=== PATIENT | female | born 1955 | race Caucasian/White ===

== ENCOUNTER 2016-06-08 08:11 | Day surgery (SDC) | payer OTHER ==
[~2016-06-08 08:11] MED LIST: Buffered Lidocaine 1% SYRIN* 3 ML/SYR SYRINGE INTRADERM ONE; Dexamethasone TAB* 4 MG PO ONE; Famotidine IV* 10 MG/ML 2 ML (20 mg) IV ONE; Morphine INJ* 2 MG/ML 1 ML SYRINGE IV PRN; PROCHLORPERAZINE INJ 5 MG/ML 2 ML VIAL IV PRN; fentaNYL* 50 MCG/ML 2 ML VIAL (100 MCG VIAL) IV PRN; oxyCODONE TAB* 5 MG TAB PO PRN
[2016-06-08] MEDS ORDERED: Dexamethasone TAB* 4 MG ONE (10:11)
[2016-06-08] MEDS ORDERED: ceFAZolin 2 GM PREMIX(*) 2 GM/50 ML BAG IVPB ONE (10:11)
[2016-06-08] MEDS ORDERED: Famotidine IV* 10 MG/ML 2 ML (20 mg) ONE (10:11)
[2016-06-08] MEDS ORDERED: Bupivacaine 0.5% W/EPI SDV* 30 ML VIAL ONE (11:52)
[2016-06-08] MEDS ORDERED: Lidocaine 1% INJ* 10 MG/ML 30 ML SDV ONE (11:52)
[2016-06-08] MEDS ORDERED: fentaNYL* 50 MCG/ML 2 ML VIAL (100 MCG VIAL) ONE (12:35)
[2016-06-08] MEDS ORDERED: Midazolam* 1 MG/ML 5 ML VIAL (5 MG) ONE (12:35)
[2016-06-08] MEDS ORDERED: KETAMINE HCL* 50 MG/ML 10 ML VIAL ONE (12:35)
[2016-06-08] MEDS ORDERED: Propofol* 10 MG/ML 20 ML BTL IV PUSH ONE (12:36)
[2016-06-08] MEDS ORDERED: Lidocaine 2% PF* 10 ML AMP ONE (12:36)
[2016-06-08] MEDS ORDERED: Bacitracin OINTMENT* 1 TUBE ONE (12:42)
--- NOTE | 2016-06-08 12:53 | SURGPN ---
Brief Operative Note - Surgery Procedures: Procedures OPERATIVE REPORT PRE-OP Right forearm granuloma POST-OP: Same--4 cm by 3 cm PROCEDURE: Excision of right forearm granuloma SURGEON: MD Kassie ANESTHESIA:Local with [facility] [place] ASST: Mansoor Guevara MS 3 IVF: min EBL: min SPECIMEN: right forearm mass DRAIN: none WOUND CLASS: one COMPLICATIONS: none TO PACU
[2016-06-08 14:18] VITALS: BP 100/76
--- NOTE | 2016-06-09 16:06 | OP ---
OPERATIVE REPORT: DATE OF OPERATION: 06/08/16 - [facility] DATE OF : 57 SURGEON: Aaron Fernando MD ANESTHESIOLOGIST: Dr. Lincoln. ANESTHESIA: Local with monitored anesthesia care. PRE-OP DIAGNOSIS: Apparent granuloma, right proximal forearm. POST-OP DIAGNOSIS: Apparent granuloma, right proximal forearm. OPERATIVE PROCEDURE: Excision of right forearm granuloma/scar tissue, 4 cm x 3 cm. INDICATIONS: Ms. Paris Aguiar is a 60-year-old woman who has a remote history of intravenous drug abuse, has had longstanding mass in the right proximal forearm overlying what appears to be the basilic vein from repeated intravenous drug injections and developed a firm mass, probably consistent with a granuloma and/ or scar tissue in this area. This does not appear to be infected or abscess causing discomfort. She is now to undergo an elective excision. The procedure was discussed with her and the risks but not limited to bleeding, infection, recurrence, peripheral nerve injury resulting in numbness or motor disability in the distal hand. She has had some mild tingling in the 4th and 5th fingers, although I do not believe this is related to this mass and I pressed upon her this will probably not improve those symptoms. She gives her consent and agrees to proceed. ESTIMATED BLOOD LOSS: Minimal. WOUND CLASSIFICATION: One. COMPLICATIONS: None. SPECIMEN: Mass from right forearm. COMPLICATIONS: None. DRAINS: None. DESCRIPTION OF PROCEDURE: Written informed consent was obtained, the right forearm was marked with indelible ink and preoperative antibiotics were administered. The patient was taken to the operating room, placed in the supine position. Sequential compression devices were placed on the lower extremities. The right arm and forearm were prepped and draped in the usual sterile fashion. Time-out verification was then completed. Next, a vertically oriented elliptical incision with a width of approximately 3.8 cm and a length of 7 cm was then traced on the skin and 1% lidocaine with epinephrine was infiltrated in the area. The skin and subcutaneous tissue were excised down to subcutaneous fat to remove the firm mass, which appeared to be scar tissue and probable granuloma. The specimen was sent to Pathology in formalin. Hemostasis was assured. I undermined some of the skin edges on either medial and lateral aspect of the flap. Subcutaneous tissue was closed in an interrupted 3-0 Polysorb suture. The skin was approximated with interrupted 3- 0 nylon sutures. Bacitracin and Vaseline gauze and Kerlix wrap were then placed. The patient tolerated the procedure well and was taken to recovery room in stable condition. CC: [facility]; Dr. Ryan Mar* [id number]/[facility] #: [id number] [place]
== END 2016-06-08 14:19 | disposition home or self-care (01) ==
LOC: OR 08:11
PROVIDERS: ATTEND Surgery
DX: R22.31 Localized swelling, mass and lump, right upper limb (principal); F17.210 Nicotine dependence, cigarettes, uncomplicated; D68.51 Activated protein C resistance; I26.99 Other pulmonary embolism without acute cor pulmonale; Z79.01 Long term (current) use of anticoagulants; Z87.898 Personal history of other specified conditions
CPT/HCPCS: 36415; 85610; 85730; 88305; A9270-GY; J0690; J2001; J2250; J2704; J3010

== ENCOUNTER 2016-09-21 16:26 | Inpatient (IN) | payer OTHER ==
[2016-09-21] MEDS ORDERED: Morphine INJ* 4 MG/ML 1 ML SYRINGE IV PRN (17:38)
[2016-09-21] MEDS ORDERED: NS 0.9% 1000 ML* 1,000 ML IV SCH (17:45)
[2016-09-21] MEDS ORDERED: Diazepam TAB(*) 5 MG PO PRN (17:47)
[2016-09-21] MEDS ORDERED: Baclofen TAB* 10 MG PO PRN (17:47)
[2016-09-21] MEDS ORDERED: Vancomycin per Pharmacy* NOTE FOLLOW UP PRN (17:50)
[2016-09-21] MEDS ORDERED: Cefepime(*) 1 GM in NS 0.9% 50 ML* 50 ML IVPB SCH (18:00)
[2016-09-21] MEDS: Morphine TAB Extended Release (*) 30 MG TAB.ER PO SCH (18:29)
[2016-09-21] MEDS ORDERED: Vancomycin(*) 1,000 MG in NS 0.9% 250 ML* 250 ML IVPB ONE ×2 (18:30→22:45)
[2016-09-21] MEDS: Morphine TAB Extended Release (*) 15 MG TAB.ER PO SCH (18:30)
[2016-09-21] MEDS ORDERED: Warfarin TAB(*) 5 MG PO SCH (19:00)
[2016-09-21] MEDS: Spironolactone TAB* 25 MG PO SCH (21:09)
[2016-09-21] MEDS: traZODone TAB* 100 MG PO SCH (21:09)
[2016-09-21] MEDS: Hydroxychloroquine TAB* 200 MG PO SCH (21:09)
[2016-09-21] MEDS: ARIPiprazole TAB* 5 MG PO SCH (21:10)
[2016-09-21 22:51] LABS: Hematocrit 40 % (35-47); Hemoglobin 13.6 g/dl (12.0-16.0); Mean Corpuscular HGB Conc 34 g/dl (31-36); Mean Corpuscular Hemoglobin 33 pg (27-31); Mean Corpuscular Volume 96 fL (80-97); Mean Platelet Volume 8 um3 (7.4-10.4); Red Blood Count 4.13 10^6/ul (4.0-5.4); Red Cell Distribution Width 14 % (10.5-15); White Blood Count 5.7 10^3/ul (3.5-10.8)
[2016-09-21] MEDS: Cefepime(*) 1 GM in NS 0.9% 50 ML* 50 ML IVPB SCH (23:01)
[2016-09-21 23:06] LABS: Albumin 3.4 g/dL (3.2-5.2); BUN/Creatinine Ratio 14.1 (8-20); C Reactive Protein 10.34 mg/L (< 5.00); Calcium 8.4 mg/dL (8.6-10.3); EGFR African American 80.1 (>60); EGFR Non-African American 62.3 (>60); Globulin 2.4 g/dL (2-4); Potassium 3.7 mmol/L (3.5-5.0); Total Bilirubin 0.5 mg/dL (0.2-1.0); Total Protein 5.8 g/dL (6.4-8.9)
[2016-09-21] MEDS: PTO: Aclidinium POWDER MDI(NF) INH SCH (23:08)
[2016-09-21 23:31] LABS: Erythrocyte Sed Rate 13 mm/Hr (0-30)
[2016-09-22] MEDS: Morphine TAB Extended Release (*) 30 MG TAB.ER PO SCH ×4 (02:25→17:53)
[2016-09-22] MEDS: Morphine TAB Extended Release (*) 15 MG TAB.ER PO SCH ×5 (02:26→17:54)
[2016-09-22] MEDS: Acetaminophen TAB* 325 MG PO PRN ×3 (03:53→17:53)
--- NOTE | 2016-09-22 04:28 | HP ---
CC: Dr. Mar * HISTORY AND PHYSICAL: DATE OF ADMISSION: 09/21/16 PRIMARY CARE PROVIDER: Dr. Mar. CHIEF COMPLAINT: Left lower extremity cellulitis. HISTORY OF PRESENT ILLNESS: Ms. Aguiar is a 61-year-old female who on 09/03/16 scraped her left anterior moe on a concrete stair. The patient was started on Keppra, completed a 7-day course of therapy. Five days prior to admission, she was seen in followup by Dr. Mar at which time her cellulitis had worsened, therefore she was changed to clindamycin. The patient represented to Dr. Mar 's office today for followup and it was noted that the erythema has progressed inferiorly and medially. The patient does have an approximately 1.5 inch round ulceration on the anterior lower left moe that has both yellow slough and a central black eschar. This has been draining some clear yellow liquid per the patient. The patient denies any fevers though does state that she has felt chilled. She also notes that she had a sore on the right anterior leg and there has been some erythema of the distal right anterior leg as well. The patient states the left leg is more painful than usual. PAST MEDICAL HISTORY: 1. Chronic back pain, status post dorsal column stimulator. 2. Depression/anxiety. 3. COPD. 4. History of PE related to factor V Leiden deficiency. 5. History of IV drug abuse. 6. SLE. 7. Hypertension. PAST SURGICAL HISTORY: 1. Appendectomy. 2. . 3. Hysterectomy - partial. 4. L4-L5 diskectomy. 5. Dorsal column stimulator. 6. Dental extractions. 7. Tonsillectomy. 8. Lumbar hemilaminectomy. ALLERGIES: CODEINE. MEDICATIONS: 1. Clindamycin 150 mg p.o. t.i.d. x10 days, started on 09/16/16. 2. MiraLAX 17 g p.o. daily. 3. Docusate sodium 1 cap p.o. twice daily p.r.n. constipation. 4. Glycerin suppository 1 suppository NH daily p.r.n. constipation. 5. Pravastatin 10 mg p.o. q.h.s. 6. Tudorza 1 puff inhaled twice daily. 7. Abilify 5 mg p.o. q.h.s. 8. Oxygen 2 L at night and with activity. 9. Baclofen 10 mg p.o. b.i.d. p.r.n. spasm. 10. Spironolactone 25 mg p.o. twice daily. 11. Diazepam 5 mg p.o. t.i.d. p.r.n. anxiety. 12. Cymbalta 60 mg p.o. daily. 13. Trazodone 100 mg p.o. q.h.s. 14. Orphenadrine 100 mg p.o. t.i.d. p.r.n. spasm. 15. Morphine ER 75 mg p.o. t.i.d. 16. Morphine sulfate IR 15 mg p.o. q.4 hours p.r.n. pain. 17. Torsemide 20 mg p.o. daily. 18. Prednisone 5 mg p.o. daily. 19. Hydroxychloroquine 200 mg p.o. b.i.d. 20. Coumadin 5 mg p.o. daily. FAMILY HISTORY: Mom at the age of 61, she had breast cancer. Dad at the age of 54, he had lymphoma. The patient had one sister who from lung cancer. SOCIAL HISTORY: The patient smokes 1 pack of cigarettes per day and has done so for just under 50 years. She drinks alcohol on occasion. She has past history of abusing OxyContin. She is disabled. She is . She does not, however, live with her . She has 2 children. She indicates her primary healthcare proxy would be her friend, Consuelo Sequeira, and her secondary proxy would be her , David. REVIEW OF SYSTEMS: The patient denies any fever, does admit to chills as above. No anorexia. No chest pain. She does state that she has noted increased swelling of the left lower extremity with the infection. She has occasional palpitation. She has chronic cough. Occasional sputum production. No shortness of breath. No nausea, vomiting, abdominal pain. She does admit to constipation. No hematochezia. No hematuria. No dysuria. No focal weakness or sensory loss. No sudden changes in vision. She does complain of food occasionally getting stuck while swallowing. No joint pains or muscle pains out of the ordinary. She admits to redness to the bilateral lower extremities. She admits to depression. PHYSICAL EXAMINATION GENERAL: The patient is a well-developed, middle-aged female, sitting up in the , bed in no acute distress. HEENT: Pupils are equal. They are round. Extraocular muscles are intact. Oropharynx is clear. Oral mucosa is moist. The patient wears upper and lower dentures. There is no submandibular, cervical, or supraclavicular adenopathy. Thyroid is not enlarged. No thyroid nodules are noted. PULMONARY: Lungs are clear to auscultation bilaterally. CARDIAC: Normal S1 and S2. Regular rate and rhythm. I do not appreciate any murmurs. There is significant nonpitting edema to the left lower extremity and minimal edema of the right lower extremity. ABDOMEN: Bowel sounds are present. Abdomen is soft, nontender, nondistended. MUSCULOSKELETAL: There is no clubbing of the digits. The patient's toes look slightly dusky in appearance. There is full active range of motion of all 4 extremities. SKIN: Warm and dry. There are no rashes. There is erythema from the mid left moe encompassing the anterior and medial and lateral aspects of the lower leg, the foot and ankle. There is slightly less erythema more proximally to just under the knee. The distal end of the left lower leg, there is approximately 1.5 inch ulceration with yellow slough around the edge without central black eschar. There is yellow serous fluid weeping from the wound. On the right, the patient has a smaller oblique shaped ulceration that is scabbed over. There is some mild erythema to the medial aspect of this wound. NEURO: Cranial nerves II through XII are grossly intact. Sensation is intact to light touch throughout. Strength is 5/5 and symmetric in both upper and lower extremities bilaterally. PSYCH: The patient is alert. She is oriented x3. Affect appears appropriate. LABORATORY DATA: Labs are pending. ASSESSMENT AND PLAN: Ms. Aguiar is a 61-year-old female, who presented to Dr. Mar's office for followup of a left lower extremity cellulitis, which was found to be worsening despite being on clindamycin and is referred for direct admission to [facility] for treatment of her cellulitis. 1. Left lower extremity cellulitis greater than right lower extremity cellulitis. At this point, the patient has been on a full course of Keflex followed by 5 days of clindamycin without significant improvement in her cellulitis of the left lower extremity. At this point, I do feel it is warranted that the patient be admitted and placed on IV antibiotics. We will go ahead and treat her with vancomycin and cefepime for now. I do not believe culturing the anterior wound on the left leg would be of benefit due to this being a superficial wound. I will ask for an ID consult tomorrow. Given how swollen the left leg is, I will obtain a CT scan with IV contrast to evaluate for underlying abscess. CBC, CRP, and sed rate are pending at the time of this dictation. 2. Chronic obstructive pulmonary disease, the patient will be continued on Tudorza. 3. Chronic back pain, I will continue the patient on her usual doses of MS Contin and short-acting morphine sulfate. We will have IV morphine available for more severe pain. 4. Depression/anxiety, the patient will be continued on her usual dose of Abilify, diazepam, Cymbalta, and trazodone. 5. Lupus with history of factor V Leiden deficiency and past pulmonary embolism. The patient will be continued on her usual dose of hydroxychloroquine and prednisone. The patient's INR will be obtained tonight. She normally takes 5 mg of Coumadin nightly. If her INR is within therapeutic range, I will go ahead and continue her usual dose of Coumadin. 6. Constipation, I will continue her MiraLAX. 7. DVT prophylaxis. According to the Adult Thrombosis Prophylaxis Risk Factor Assessment Guide, the patient has a total risk factor score of 2 making her moderate risk. She is on Coumadin and this will act as her DVT prophylaxis for now. However, if her INR is subtherapeutic, I will start her on Lovenox. 8. Code status is full and again the patient indicates that her friend, Consuelo Sequeira, is her healthcare proxy. TIME SPENT: 65 minutes were spent admitting this patient of which greater than half was spent [id number] with the patient reviewing her history and performing a physical exam. [id number]/[facility] #: [id number] [facility]ITAL[facility]ov[facility]
[2016-09-22] MEDS: PTO: Aclidinium POWDER MDI(NF) INH SCH ×2 (08:36→22:22)
[2016-09-22] MEDS ORDERED: NS 0.9% 1000 ML* 2,000 ML IV ONE (08:41)
[2016-09-22] MEDS: Polyethylene Glycol 3350* 17 GM PACKET PO SCH (08:58)
[2016-09-22] MEDS: predniSONE TAB* 5 MG PO SCH (08:58)
[2016-09-22] MEDS: Hydroxychloroquine TAB* 200 MG PO SCH ×2 (08:58→22:23)
[2016-09-22] MEDS: DULoxetine DR CAP* 30 MG CAP.DR PO SCH (08:58)
[2016-09-22] MEDS: Spironolactone TAB* 25 MG PO SCH ×2 (09:06→20:34)
[2016-09-22] MEDS: Torsemide TAB* 20 MG PO SCH (09:07)
[2016-09-22] MEDS: Enoxaparin(*) 80 MG/0.8 ML SYR SUBCUT SCH ×2 (10:30→20:35)
[2016-09-22] MEDS ORDERED: Iohexol 300* (CONTRAST) 10 ML SDV IV SCH (10:36)
[2016-09-22] MEDS: Cefepime(*) 1 GM in NS 0.9% 50 ML* 50 ML IVPB SCH ×2 (11:27→22:23)
--- NOTE | 2016-09-22 12:05 | RAD ---
INDICATION: Cellulitis, evaluate for abscess. COMPARISON: There are no prior studies available for comparison. TECHNIQUE: Contiguous axial sections were obtained of the lower legs. Images were reconstructed in the sagittal and coronal planes. The exam was performed following intravenous injection of 100 mL of Omnipaque 300 nonionic contrast. FINDINGS: There is soft tissue swelling and fluid tracking in the subcutaneous tissues of both lower extremities left greater than right. No focal fluid collection or abscess is seen. No significant focal osseous abnormality is noted. IMPRESSION: FINDINGS MOST CONSISTENT WITH LOWER LEG CELLULITIS, NO EVIDENCE FOR ABSCESS.
--- NOTE | 2016-09-22 12:13 | RAD ---
INDICATION: Bilateral lower extremity edema. COMPARISON: Comparison is made with a prior study from August 19, 2015. TECHNIQUE: Multiple real-time, color flow and Doppler tracings of both lower extremities were obtained. FINDINGS: The common femoral, femoral, profunda femoral and popliteal veins all demonstrate normal compressibility, augmentation with compression and phasic response with respiration. The posterior tibial and peroneal veins demonstrate normal compressibility and augmentation with compression. IMPRESSION: NO EVIDENCE FOR DEEP VENOUS THROMBOSIS.
[2016-09-22] MEDS: Vancomycin(*) 1,000 MG in NS 0.9% 250 ML* 250 ML IVPB SCH (13:03)
[2016-09-22] MEDS ORDERED: Nicotine Inhaler* 10 MG AMP INH PRN (13:32)
[2016-09-22] MEDS ORDERED: Mouth Piece, Nicotine* 1 EACH CARTRIDGE INH PRN (13:33)
--- NOTE | 2016-09-22 13:36 | PN ---
Subjective Date of Service: 09/22/16 Interval History: Pt is feeling ok. She states her pain is not well controlled (she has not had her AM long acting morphine yet this AM due to hypotension). She denies any SOB. She has noticed improvement in the erythema of the L lower leg. Objective Active Medications: Acetaminophen (Tylenol Tab*) 650 mg PO Q4H PRN PRN Reason: PAIN Last Admin: 09/22/16 08:58 Dose: 650 mg Aclidinium [place] (Nicolle Hoskins Mdi(Nf)) 1 puff INH BID COUNTS INCLUDE 234 BEDS AT THE [facility] Last Admin: 09/22/16 08:36 Dose: Not Given Aripiprazole (Abilify Tab*) 5 mg PO BEDTIME DARRIN Last Admin: 09/21/16 21:10 Dose: 5 mg Baclofen (Lioresal Tab*) 10 mg PO BID PRN PRN Reason: SPASMS Last Admin: 09/21/16 21:09 Dose: 10 mg Diazepam (Valium Tab(*)) 5 mg PO TID PRN PRN Reason: ANXIETY Last Admin: 09/21/16 21:08 Dose: 5 mg Duloxetine HCl (Cymbalta Cap*) 60 mg PO DAILY COUNTS INCLUDE 234 BEDS AT THE [facility] Last Admin: 09/22/16 08:58 Dose: 60 mg Enoxaparin Sodium (Lovenox(*)) 65 mg SUBCUT Q12H COUNTS INCLUDE 234 BEDS AT THE [facility] Last Admin: 09/22/16 10:30 Dose: 65 mg Heparin Sodium (Porcine) (Heparin Flush Picc/Ml/Cvc(*)) 1 ml FLUSH 0600,1800 DARRIN PRN Reason: Protocol Hydroxychloroquine Sulfate (Plaquenil Tab*) 200 mg PO BID COUNTS INCLUDE 234 BEDS AT THE [facility] Last Admin: 09/22/16 08:58 Dose: 200 mg Sodium Chloride (Ns 0.9% 1000 Ml*) 1,000 mls @ 100 mls/hr IV PER RATE COUNTS INCLUDE 234 BEDS AT THE [facility] Last Admin: 09/21/16 22:53 Dose: 100 mls/hr Cefepime HCl 1 gm/ Sodium (Chloride) 50 mls @ 100 mls/hr IVPB 1045,2245 COUNTS INCLUDE 234 BEDS AT THE [facility] Last Admin: 09/22/16 11:27 Dose: 100 mls/hr Vancomycin HCl 1,000 mg/ (Sodium Chloride) 250 mls @ 166.667 mls/hr IVPB Q12H COUNTS INCLUDE 234 BEDS AT THE [facility] Last Admin: 09/22/16 13:03 Dose: 166.667 mls/hr Sodium Chloride (Ns 0.9% 1000 Ml*) 1,000 mls @ 100 mls/hr IV PER RATE COUNTS INCLUDE 234 BEDS AT THE [facility] Iohexol (Omnipaque 300* (Contrast)) 100 ml IV ONCE COUNTS INCLUDE 234 BEDS AT THE [facility] Stop: 09/24/16 10:35 Morphine Sulfate (Morphine Inj (Syringe)*) 4 mg IV Q4H PRN PRN Reason: PAIN Morphine Sulfate (Ms Contin(*)) 60 mg PO Q8H COUNTS INCLUDE 234 BEDS AT THE [facility] Last Admin: 09/22/16 12:54 Dose: Not Given Morphine Sulfate (Morphine Oral.Soln 10 Mg*) 15 mg PO Q4HR PRN PRN Reason: PAIN Morphine Sulfate (Ms Contin(*)) 15 mg PO Q8H COUNTS INCLUDE 234 BEDS AT THE [facility] Last Admin: 09/22/16 12:54 Dose: Not Given Pharmacy Consult (Vancomycin Per Pharmacy*) 0 note FOLLOW UP . PRN PRN Reason: PER PROTOCOL Pharmacy Profile Note (Coumadin Daily Reminder*) 0 note FOLLOW UP 1700 COUNTS INCLUDE 234 BEDS AT THE [facility] Pharmacy Profile Note (Vancomycin Trough Check) 1 note FOLLOW UP 1200 ONE Stop: 09/23/16 12:01 Polyethylene Glycol/Electrolytes (Miralax*) 17 gm PO DAILY COUNTS INCLUDE 234 BEDS AT THE [facility] Last Admin: 09/22/16 08:58 Dose: 17 gm Prednisone (Deltasone Tab*) 5 mg PO DAILY COUNTS INCLUDE 234 BEDS AT THE [facility] Last Admin: 09/22/16 08:58 Dose: 5 mg Spironolactone (Aldactone Tab*) 25 mg PO BID COUNTS INCLUDE 234 BEDS AT THE [facility] Last Admin: 09/22/16 09:06 Dose: Not Given Torsemide (Demadex*) 20 mg PO DAILY COUNTS INCLUDE 234 BEDS AT THE [facility] Last Admin: 09/22/16 09:07 Dose: Not Given Trazodone HCl (Desyrel Tab*) 100 mg PO BEDTIME COUNTS INCLUDE 234 BEDS AT THE [facility] Last Admin: 09/21/16 21:09 Dose: 100 mg Warfarin Sodium (Coumadin Tab(*)) 5 mg PO DAILY@1700 COUNTS INCLUDE 234 BEDS AT THE [facility] PRN Reason: Protocol Last Admin: 09/21/16 21:08 Dose: 5 mg Vital Signs 09/21/16 09/21/16 09/21/16 17:18 18:16 18:29 Temperature 98.2 F 98.2 F Pulse Rate 70 70 Respiratory 16 14 14 Rate Blood Pressure 114/73 114/73 (mmHg) O2 Sat by Pulse 100 100 Oximetry 09/21/16 09/21/16 09/21/16 18:30 20:00 20:30 Temperature Pulse Rate Respiratory 14 16 20 Rate Blood Pressure (mmHg) O2 Sat by Pulse Oximetry 09/21/16 09/21/16 09/21/16 21:08 21:27 21:29 Temperature 97.4 F Pulse Rate 61 Respiratory 20 20 Rate Blood Pressure 100/40 81/51 (mmHg) O2 Sat by Pulse 94 Oximetry 09/21/16 09/21/16 09/21/16 21:32 21:56 23:08 Temperature Pulse Rate 61 Respiratory 18 Rate Blood Pressure 80/54 100/45 (mmHg) O2 Sat by Pulse Oximetry 09/21/16 09/21/16 09/21/16 23:37 23:48 23:50 Temperature 97.7 F Pulse Rate 57 56 Respiratory 16 Rate Blood Pressure 72/48 69/43 100/50 (mmHg) O2 Sat by Pulse 93 95 Oximetry 09/22/16 09/22/16 09/22/16 03:13 08:00 08:30 Temperature 98.0 F 98.1 F Pulse Rate 58 60 Respiratory 14 16 15 Rate Blood Pressure 80/50 88/51 (mmHg) O2 Sat by Pulse 92 94 Oximetry 09/22/16 12:01 Temperature 98.0 F Pulse Rate 62 Respiratory 16 Rate Blood Pressure 90/56 (mmHg) O2 Sat by Pulse 95 Oximetry Oxygen Devices in Use Now: None Appearance: Middle aged female sitting up in bed, NAD Eyes: No Scleral Icterus Ears/Nose/Mouth/Throat: Mucous Membranes Moist Respiratory: Symmetrical Chest Expansion and Respiratory Effort, Clear to Auscultation Cardiovascular: NL Sounds; No Murmurs; No JVD, RRR, - - 1+ pitting edema L lower leg Abdominal: NL Sounds; No Tenderness; No Distention Extremities: No Clubbing, Cyanosis Skin: - - much improved erythema of the B/L LE, ulceration on the anterior L moe mostly covered with eschar, no drainage Neurological: Alert and Oriented x 3 Result Diagrams: 09/21/16 22:34 09/21/16 22:34 Assess/Plan/Problems-Billing Ms Aguiar is a 61 yo F who has a h/o past IVDA, lupus, factor V leiden deficiency , COPD, HTN and anxiety/depression who presented from Dr. Mar's office for a L LE cellulitis that is failing to improve. - Patient Problems (1) Cellulitis of left lower extremity Current Visit: Yes Status: Acute Code(s): L03.116 - CELLULITIS OF LEFT LOWER LIMB SNOMED Code(s): 833930218 Comment: The patient's LE cellulitis is improved today. Will continue vancomycin and cefepime for now. Will get ID consult today. DVT has been ruled out as has underlying abscess. She may be ready for d/c home tomorrow. (2) HTN (hypertension) Current Visit: Yes Status: Acute Code(s): I10 - ESSENTIAL (PRIMARY) HYPERTENSION SNOMED Code(s): 79007480 Comment: Pt is now hypotensive. Will continue to bolus fluid and monitor her pressure. (3) COPD (chronic obstructive pulmonary disease) Current Visit: Yes Status: Acute Code(s): J44.9 - CHRONIC OBSTRUCTIVE PULMONARY DISEASE, UNSPECIFIED SNOMED Code(s): 15097808 Comment: No signs of exacerbation. (4) SLE (systemic lupus erythematosus) Current Visit: Yes Status: Acute Code(s): M32.9 - SYSTEMIC LUPUS ERYTHEMATOSUS, UNSPECIFIED SNOMED Code(s): 00771297 Comment: Continue plaquenil and prednisone. INR subtherapuetic. Will give coumadin 7.5mg tonight and recheck INR tomorrow. (5) DVT prophylaxis Current Visit: Yes Status: Acute Code(s): ERH3617 - SNOMED Code(s): 683105070 Comment: lovenox bridging to coumadin (6) Full code status Current Visit: Yes Status: Acute Code(s): Z78.9 - OTHER SPECIFIED HEALTH STATUS SNOMED Code(s): 175514076
[2016-09-22] MEDS ORDERED: Warfarin TAB(*) 7.5 MG PO SCH (17:00)
[2016-09-22] MEDS: NS 0.9% 1000 ML* 1,000 ML IV SCH (17:55)
[2016-09-22] MEDS: traZODone TAB* 100 MG PO SCH (20:34)
[2016-09-22] MEDS: Morphine ORAL.SOLN 10 mg* 2 MG/ML UDC 5 ml PO PRN (20:35)
[2016-09-22] MEDS: ARIPiprazole TAB* 5 MG PO SCH (22:23)
[2016-09-23] MEDS: Vancomycin(*) 1,000 MG in NS 0.9% 250 ML* 250 ML IVPB SCH ×2 (00:13→12:06)
--- NOTE | 2016-09-23 00:23 | CONS ---
CONSULTATIONS REPORT: DATE OF CONSULT: 09/22/16 REQUESTING PHYSICIAN: Dr. Arroyo. CONSULTING SERVICE: Infectious Disease. REASON FOR CONSULT: Left leg cellulitis. IMPRESSION: 1. Left lower extremity non-pressure related ulceration complicated by cellulitis. It could be gram positive or gram negative. The oral antibiotics she was on may have been appropriate, but may have just required a few days of IV antibiotics or it was just taking a while to start improving despite the correct antibiotic. Her improvement may also be partially related to being in the hospital and keeping the legs elevated consistently, which often does not happen at home. 2. Lower extremity peripheral neuropathy. 3. History of dorsal column stimulator. 4. History of pulmonary embolism and factor V Leiden deficiency. 5. Lupus. RECOMMENDATION: 1. Agree with broad-spectrum antibiotics for now and then as long as she is continuing to improve as she has today, then by tomorrow we can consider changing her to oral antibiotics combination, which is approximate to current regimen, which would be doxycycline 100 mg by mouth twice daily and ciprofloxacin 500 mg by mouth twice daily for another 10 days. 2. Check an HIV antibody. HISTORY OF PRESENT ILLNESS: This is a 61-year-old woman with lupus, admitted with left leg pain and swelling and bilateral moe wounds. She was well until the . She fell and banged both shins on a concrete step. She tried to keep them clean. She developed drainage from the wound on the left, which seemed to be the worst one and then over the last couple of weeks some pain, swelling, redness around this. She was on Keflex for a few days without much improvement and clindamycin without much improvement. Came to the hospital yesterday because things seemed to be getting any worse. She was started on vancomycin and cefepime, her white blood cell count was 5.7. She has been afebrile here. She has had some chills and decreased appetite this morning. Her leg was looking much better when she woke up with the redness receding from the outlined area. There has been decrease in the drainage. She had a CT of the leg that showed no abscess. There was some soft tissue edema. She has not had an infection like this in the past. Does not remember an HIV test recently. PAST MEDICAL HISTORY: 1. Past IV drug use. 2. Dorsal column stimulator. 3. Depression. 4. Anxiety. 5. COPD. 6. Factor V Leiden deficiency and PE. 7. Lupus. 8. Hypertension. 9. Status post appendectomy. 10. Status post . 11. Status post L4-L5 diskectomy. 12. Status post tonsillectomy. 13. Status post lumbar hemilaminectomy. MEDICATIONS: 1. Abilify. 2. Tylenol. 3. Baclofen. 4. Cefepime 1 g every 12 hours. 5. Duloxetine. 6. Diazepam p.r.n. 7. Enoxaparin. 8. Hydroxychloroquine. 9. Morphine. 10. Spironolactone. 11. Torsemide. 12. Vancomycin 1 g every 12 hours. 13. Trazodone. ALLERGIES: CODEINE. FAMILY HISTORY: No recurrent infections. SOCIAL HISTORY: She lives in [place] with her . She has 2 dogs and cats , they are not licking the wound. She has no travel or recent injection drugs. REVIEW OF SYSTEMS: All negative to full review of systems except as noted above. PHYSICAL EXAM: Vital Signs: Temperature 36, heart rate 70, respiratory rate 20 , blood pressure 116/64, O2 sat 94% on room air. General: She is awake, not in distress. Neurological: She is oriented x3. Follows all commands. HEENT: There is no conjunctival hemorrhage. Oropharynx without lesions. Neck is supple without nuchal rigidity. Lymph Nodes: There is no cervical, supraclavicular, inguinal, axillary, or epitrochlear lymphadenopathy. Heart: Regular rate and rhythm without murmurs, rubs or gallops. Lungs: Clear to auscultation bilaterally. Abdomen: Soft, nontender, nondistended. Musculoskeletal: No spine tenderness to palpation. Skin: In the left anterior moe, there is a 1.5 cm oblong eschar without surrounding crepitus or fluctuance. There is surrounding mild erythema and warmth that goes down to the medial malleolus. There is no expressible fluid. There is no tenderness to palpation with range of motion of the left ankle. LABORATORY DATA: Creatinine 0.9. CRP 10. White blood cell count 5, hemoglobin 13, and platelets 233,000. Please see impressions and recommendations outlined above, which I have discussed with Dr. Arroyo. Thank you for asking me to see Ms. Aguiar in consultation. [id number]/[facility] #: [id number] [place]
[2016-09-23] MEDS: Morphine TAB Extended Release (*) 15 MG TAB.ER PO SCH ×2 (00:53→08:10)
[2016-09-23] MEDS: Morphine TAB Extended Release (*) 30 MG TAB.ER PO SCH ×2 (00:54→08:09)
[2016-09-23] MEDS: NS 0.9% 1000 ML* 1,000 ML IV SCH ×3 (03:52→05:00)
[2016-09-23] MEDS: Morphine ORAL.SOLN 10 mg* 2 MG/ML UDC 5 ml PO PRN (05:12)
[2016-09-23] MEDS: PTO: Aclidinium POWDER MDI(NF) INH SCH (08:04)
[2016-09-23] MEDS: DULoxetine DR CAP* 30 MG CAP.DR PO SCH (08:09)
[2016-09-23] MEDS: Polyethylene Glycol 3350* 17 GM PACKET PO SCH (08:09)
[2016-09-23] MEDS: predniSONE TAB* 5 MG PO SCH (08:09)
[2016-09-23] MEDS: Hydroxychloroquine TAB* 200 MG PO SCH (08:09)
[2016-09-23] MEDS: Torsemide TAB* 20 MG PO SCH (08:09)
[2016-09-23] MEDS: Enoxaparin(*) 80 MG/0.8 ML SYR SUBCUT SCH (08:10)
[2016-09-23] MEDS: Spironolactone TAB* 25 MG PO SCH (08:10)
--- NOTE | 2016-09-23 09:37 | PN ---
Subjective Date of Service: 09/23/16 Interval History: Pt is feeling well. She states her back is bothering her. She notes that the cellulitis is still improving. Objective Active Medications: Acetaminophen (Tylenol Tab*) 650 mg PO Q4H PRN PRN Reason: PAIN Last Admin: 09/22/16 17:53 Dose: 650 mg Aclidinium [place] (Tudorza Pressair Mdi(Nf)) 1 puff INH BID [facility] Last Admin: 09/23/16 08:04 Dose: Not Given Aripiprazole (Abilify Tab*) 5 mg PO BEDTIME [facility] Last Admin: 09/22/16 22:23 Dose: 5 mg Baclofen (Lioresal Tab*) 10 mg PO BID PRN PRN Reason: SPASMS Last Admin: 09/21/16 21:09 Dose: 10 mg Device (Nicotine Mouth Piece*) 1 each INH .USE WITH NICOTROL PRN PRN Reason: CRAVING Last Admin: 09/22/16 13:59 Dose: 1 each Diazepam (Valium Tab(*)) 5 mg PO TID PRN PRN Reason: ANXIETY Last Admin: 09/21/16 21:08 Dose: 5 mg Duloxetine HCl (Cymbalta Cap*) 60 mg PO DAILY [facility] Last Admin: 09/23/16 08:09 Dose: 60 mg Enoxaparin Sodium (Lovenox(*)) 65 mg SUBCUT Q12H [facility] Last Admin: 09/23/16 08:10 Dose: 65 mg Heparin Sodium (Porcine) (Heparin Flush Picc/Ml/Cvc(*)) 1 ml FLUSH 0600,1800 DARRIN PRN Reason: Protocol Last Admin: 09/23/16 06:00 Dose: Not Given Hydroxychloroquine Sulfate (Plaquenil Tab*) 200 mg PO BID [facility] Last Admin: 09/23/16 08:09 Dose: 200 mg Cefepime HCl 1 gm/ Sodium (Chloride) 50 mls @ 100 mls/hr IVPB 1045,2245 [facility] Last Admin: 09/22/16 22:23 Dose: 100 mls/hr Vancomycin HCl 1,000 mg/ (Sodium Chloride) 250 mls @ 166.667 mls/hr IVPB Q12H [facility] Last Admin: 09/23/16 00:13 Dose: 166.667 mls/hr Sodium Chloride (Ns 0.9% 1000 Ml*) 1,000 mls @ 100 mls/hr IV PER RATE [facility] Last Admin: 09/23/16 05:00 Dose: 100 mls/hr Iohexol (Omnipaque 300* (Contrast)) 100 ml IV ONCE [facility] Stop: 09/24/16 10:35 Morphine Sulfate (Morphine Inj (Syringe)*) 4 mg IV Q4H PRN PRN Reason: PAIN Last Admin: 09/23/16 08:11 Dose: 4 mg Morphine Sulfate (Ms Contin(*)) 60 mg PO Q8H [facility] Last Admin: 09/23/16 08:09 Dose: 60 mg Morphine Sulfate (Morphine Oral.Soln 10 Mg*) 15 mg PO Q4HR PRN PRN Reason: PAIN Last Admin: 09/23/16 05:12 Dose: 15 mg Morphine Sulfate (Ms Contin(*)) 15 mg PO Q8H [facility] Last Admin: 09/23/16 08:10 Dose: 15 mg Nicotine (Nicotine Inhaler*) 10 mg INH Q2H PRN PRN Reason: CRAVING Last Admin: 09/22/16 14:01 Dose: 10 mg Pharmacy Consult (Vancomycin Per Pharmacy*) 0 note FOLLOW UP . PRN PRN Reason: PER PROTOCOL Pharmacy Profile Note (Coumadin Daily Reminder*) 0 note FOLLOW UP 1700 [facility] Last Admin: 09/22/16 17:54 Dose: 1 note Pharmacy Profile Note (Vancomycin Trough Check) 1 note FOLLOW UP 1200 [facility] Stop: 09/23/16 12:01 Polyethylene Glycol/Electrolytes (Miralax*) 17 gm PO DAILY [facility] Last Admin: 09/23/16 08:09 Dose: 17 gm Prednisone (Deltasone Tab*) 5 mg PO DAILY [facility] Last Admin: 09/23/16 08:09 Dose: 5 mg Spironolactone (Aldactone Tab*) 25 mg PO BID [facility] Last Admin: 09/23/16 08:10 Dose: 25 mg Torsemide (Demadex*) 20 mg PO DAILY [facility] Last Admin: 09/23/16 08:09 Dose: 20 mg Trazodone HCl (Desyrel Tab*) 100 mg PO BEDTIME [facility] Last Admin: 09/22/16 20:34 Dose: 100 mg Warfarin Sodium (Coumadin Tab(*)) 7.5 mg PO DAILY@1700 [facility] PRN Reason: Protocol Last Admin: 09/22/16 17:54 Dose: 7.5 mg Vital Signs 09/22/16 09/22/16 09/22/16 12:01 13:59 15:29 Temperature 98.0 F 97.4 F Pulse Rate 62 76 Respiratory 16 18 23 Rate Blood Pressure 90/56 116/64 (mmHg) O2 Sat by Pulse 95 94 Oximetry 09/22/16 09/22/16 09/22/16 15:59 17:53 17:54 Temperature Pulse Rate Respiratory 17 18 18 Rate Blood Pressure (mmHg) O2 Sat by Pulse Oximetry 09/22/16 09/22/16 09/22/16 19:42 20:00 20:35 Temperature 98.6 F Pulse Rate 69 Respiratory 24 18 18 Rate Blood Pressure 112/76 (mmHg) O2 Sat by Pulse 94 Oximetry 09/22/16 09/22/16 09/23/16 22:29 23:32 00:53 Temperature 98.3 F Pulse Rate 57 Respiratory 18 16 18 Rate Blood Pressure 101/65 (mmHg) O2 Sat by Pulse 94 Oximetry 09/23/16 09/23/16 09/23/16 00:54 02:53 03:12 Temperature 98.4 F Pulse Rate 57 Respiratory 18 18 16 Rate Blood Pressure 98/55 (mmHg) O2 Sat by Pulse 97 Oximetry 09/23/16 09/23/16 09/23/16 05:12 05:15 07:11 Temperature Pulse Rate 54 Respiratory 18 16 Rate Blood Pressure 115/67 (mmHg) O2 Sat by Pulse Oximetry 09/23/16 09/23/16 09/23/16 07:16 07:41 08:09 Temperature 97.8 F Pulse Rate 58 Respiratory 16 16 16 Rate Blood Pressure 126/57 (mmHg) O2 Sat by Pulse 94 Oximetry 09/23/16 09/23/16 08:10 08:11 Temperature Pulse Rate Respiratory 16 16 Rate Blood Pressure (mmHg) O2 Sat by Pulse Oximetry Oxygen Devices in Use Now: None Appearance: Middle aged female sitting up in bed, NAD Eyes: No Scleral Icterus Ears/Nose/Mouth/Throat: Mucous Membranes Moist Respiratory: Symmetrical Chest Expansion and Respiratory Effort, Clear to Auscultation Cardiovascular: NL Sounds; No Murmurs; No JVD, RRR Abdominal: NL Sounds; No Tenderness; No Distention Extremities: No Clubbing, Cyanosis Skin: No Nodules or Sclerosis, - - ulcerations to bilateral anterior lower legs appear to be scabbed over Neurological: Alert and Oriented x 3 Result Diagrams: 09/21/16 22:34 09/21/16 22:34 Assess/Plan/Problems-Billing Ms Aguiar is a 61 yo F who has a h/o past IVDA, lupus, factor V leiden deficiency , COPD, HTN and anxiety/depression who presented from Dr. Mar's office for a L LE cellulitis that is failing to improve. - Patient Problems (1) Cellulitis of left lower extremity Current Visit: Yes Status: Acute Code(s): L03.116 - CELLULITIS OF LEFT LOWER LIMB SNOMED Code(s): 689016607 Comment: Continued improvement in the patient's cellulitis. At this time I think she is stable for d/c home. Will d/c pt on cipro and doxycycline. Follow up with Dr. Mar as an outpatient. (2) HTN (hypertension) Current Visit: Yes Status: Acute Code(s): I10 - ESSENTIAL (PRIMARY) HYPERTENSION SNOMED Code(s): 00716110 Comment: BP improved. Continue to monitor. Resume diuretics tomorrow. (3) COPD (chronic obstructive pulmonary disease) Current Visit: Yes Status: Acute Code(s): J44.9 - CHRONIC OBSTRUCTIVE PULMONARY DISEASE, UNSPECIFIED SNOMED Code(s): 75350081 Comment: No signs of exacerbation. (4) SLE (systemic lupus erythematosus) Current Visit: Yes Status: Acute Code(s): M32.9 - SYSTEMIC LUPUS ERYTHEMATOSUS, UNSPECIFIED SNOMED Code(s): 16998622 Comment: Follow up INR pending. If INR <2 will send pt out on lovenox and coumadin until her INR is therapeutic. (5) DVT prophylaxis Current Visit: Yes Status: Acute Code(s): FNK6059 - SNOMED Code(s): 089711860 Comment: lovenox bridging to coumadin (6) Full code status Current Visit: Yes Status: Acute Code(s): Z78.9 - OTHER SPECIFIED HEALTH STATUS SNOMED Code(s): 655713529
--- NOTE | 2016-09-23 09:54 | PN ---
Progress Note - Progress Note Date of Service: 09/23/16 SOAP: Subjective: CC: cellulitis HPI: 61 yo woman with BL LE wounds and associated LLE cellulitis, much improved on antibiotics. No fever, rash, or diarrhea. Objective: [] Vital Signs Temp 36.6 C 09/23/16 07:41 Pulse 58 09/23/16 07:41 Resp 16 09/23/16 09:11 BP 126/57 09/23/16 07:41 Pulse Ox 94 09/23/16 07:41 Intake & Output 09/22/16 09/23/16 09/23/16 18:59 06:59 18:59 Intake Total 4902 2842 Balance 4902 2842 Intake: IV Fluids 4247 2442 all fluids 4247 2442 Oral 655 400 Other: Estimated Void Medium # Voids 1 Gen:awake, no distress HEENT:PERRL, MMM Neck:Supple Heart:RRR no murmur Lungs:CTA BL Abd:+BS NTND soft Skin: no rash; R lower anterior leg 1.5 cm eschar no surrounding erythema; LLE 2 cm linear eschar surrounding trace erythema Laboratory Results - last 24 hr 09/22/16 10:12 Lactic Acid 1.7 Assessment: 1. left leg cellulitis, wound associated, improving 2. right and left leg non pressure wounds 3. neuropathy Plan: 1. cipro 500 mg po bid and doxycycline 100 mg po bid for 10 days, fu with me 1 week, call or return if worsening redness, continue leg elevation. 25 minute floor time >50% face to face time in counseling regarding next steps in antibiotic treatment. All questions answered.
[2016-09-23] MEDS: Cefepime(*) 1 GM in NS 0.9% 50 ML* 50 ML IVPB SCH (10:56)
[2016-09-23] MEDS ORDERED: Vancomycin Trough Check NOTE FOLLOW UP ONE (12:00)
[2016-09-23 12:07] VITALS: BP 103/75
--- NOTE | 2016-09-24 13:20 | DS ---
CC: Dr. Mar; Dr. Faustin * DISCHARGE SUMMARY: DATE OF ADMISSION: 09/21/16 DATE OF DISCHARGE: 09/23/16 PRIMARY CARE PROVIDER: Dr. Mar. PRINCIPAL DIAGNOSIS: Left lower extremity cellulitis. SECONDARY DIAGNOSES: 1. Systemic lupus erythematosus with history of factor V Leiden deficiency and past history of pulmonary embolism. 2. Chronic back pain. 3. Depression/anxiety. 4. Chronic obstructive pulmonary disease. 5. History of intravenous drug abuse. 6. Hypertension. DISCHARGE MEDICATIONS: 1. Pravastatin 10 mg p.o. daily. 2. Colace 100 mg p.o. b.i.d. p.r.n. constipation. 3. Coumadin 5 mg p.o. daily. 4. Prednisone 5 mg p.o. daily. 5. Torsemide 20 mg p.o. daily. 6. MS Contin 75 mg p.o. q.8 hours. 7. Morphine IR 15 mg p.o. q.4 hours p.r.n. pain. 8. Hydroxychloroquine 200 mg p.o. b.i.d. 9. Orphenadrine 100 mg p.o. t.i.d. p.r.n. pain. 10. Trazodone 100 mg p.o. q.h.s. 11. Spironolactone 25 mg p.o. daily. 12. Diazepam 5 mg p.o. t.i.d. p.r.n. anxiety. 13. Cymbalta 60 mg p.o. daily. 14. Baclofen 10 mg p.o. b.i.d. p.r.n. pain/spasm. 15. Glycerin suppository 1 suppository daily SD p.r.n. constipation. 16. Tudorza 1 inhalation twice daily. 17. Abilify 5 mg p.o. q.h.s. 18. MiraLAX 17 g p.o. daily. 19. Nicotrol inhaler 10 mg inhaled q.2 hours p.r.n. shortness of breath. 20. Doxycycline 100 mg p.o. b.i.d. x10 days. 21. Ciprofloxacin 500 mg p.o. b.i.d. x10 days. HOSPITAL COURSE: Ms. Aguiar is a 61-year-old female who presented into Dr. Mar 's office in followup on 09/21/16 of left lower extremity cellulitis and was referred to [facility] for inpatient management due to failing to improve despite almost 2 completed courses of antibiotics. On admission, the patient's left lower extremities was noted to be markedly erythematous and swollen. She was started on broad-spectrum antibiotics including vancomycin and cefepime. With this, the patient's erythema markedly improved. The patient was seen in consultation by Dr. Faustin on the day prior to discharge who agreed with the IV antibiotic therapy initiated on admission. She did undergo Doppler evaluation to rule out DVT as well as CT of the leg to rule out abscess. These conditions were ruled out and therefore felt that the marked erythema was likely secondary to only the cellulitis. The patient at this point is stable and ready for discharge home. The patient will need to follow up with Dr. Faustin in approximately 1 week. She will continue on Cipro and doxycycline per Dr. Faustin's recommendations for the next 10 days. FOLLOWUP CONCERNS: The patient is being discharged home today 09/23/16. ACTIVITY LEVEL: As tolerated. DIET: Regular. CONDITION ON DISCHARGE: Stable. FOLLOWUP: The patient should followup with Dr. Mar in the next 4 to 7 days. TIME SPENT: Thirty-five minutes was spent discharging this patient. [id number]/[facility] #: [id number] [facility]PITALJovita
== END 2016-09-23 12:25 | disposition home or self-care (01) | DRG 383 ==
LOC: MED 16:50
PROVIDERS: ADMIT Hospitalist; ATTEND Hospitalist
DX: L03.116 Cellulitis of left lower limb (principal); M32.9 Systemic lupus erythematosus, unspecified; I95.9 Hypotension, unspecified; L97.919 Non-pressure chronic ulcer of unspecified part of right lower leg with unspecified severity; D68.2 Hereditary deficiency of other clotting factors; L97.929 Non-pressure chronic ulcer of unspecified part of left lower leg with unspecified severity; G89.29 Other chronic pain; F32.9 Major depressive disorder, single episode, unspecified; F41.9 Anxiety disorder, unspecified; J44.9 Chronic obstructive pulmonary disease, unspecified; L03.115 Cellulitis of right lower limb; F17.210 Nicotine dependence, cigarettes, uncomplicated; M54.9 Dorsalgia, unspecified; I10 Essential (primary) hypertension; K59.00 Constipation, unspecified; G62.9 Polyneuropathy, unspecified; Z79.01 Long term (current) use of anticoagulants; Z79.52 Long term (current) use of systemic steroids; Z86.711 Personal history of pulmonary embolism; Z90.710 Acquired absence of both cervix and uterus; Z80.3 Family history of malignant neoplasm of breast; Z80.1 Family history of malignant neoplasm of trachea, bronchus and lung; Z80.7 Family history of other malignant neoplasms of lymphoid, hematopoietic and related tissues
CPT/HCPCS: 36415; 80053; 83605; 85025; 85610; 85652; 86140; 86703; 87040; 93970; A9270-GY; J0692; J1650; J2270; J3370; J7512; Q9967

== ENCOUNTER 2016-10-12 16:31 | Inpatient (IN) | payer OTHER ==
[2016-10-12 18:23] LABS: Hematocrit 44 % (35-47); Hemoglobin 14.5 g/dl (12.0-16.0); Mean Corpuscular HGB Conc 33 g/dl (31-36); Mean Corpuscular Hemoglobin 32 pg (27-31); Mean Corpuscular Volume 96 fL (80-97); Mean Platelet Volume 8 um3 (7.4-10.4); Red Cell Distribution Width 14 % (10.5-15); White Blood Count 7.9 10^3/ul (3.5-10.8)
[2016-10-12 18:38] LABS: Albumin 4.1 g/dL (3.2-5.2); BUN/Creatinine Ratio 12.9 (8-20); C Reactive Protein 6.28 mg/L (< 5.00); EGFR African American 71.9 (>60); EGFR Non-African American 55.9 (>60); Globulin 2.9 g/dL (2-4); Potassium 3.8 mmol/L (3.5-5.0); Total Bilirubin 0.4 mg/dL (0.2-1.0)
[2016-10-12] MEDS ORDERED: Docusate CAP* 100 MG PO PRN (18:44)
[2016-10-12] MEDS ORDERED: ORPHENADRINE CITRATE 100 MG PO PRN (18:44)
[2016-10-12] MEDS ORDERED: Diazepam TAB(*) 5 MG PO PRN (18:44)
[2016-10-12] MEDS ORDERED: Baclofen TAB* 10 MG PO PRN (18:44)
[2016-10-12] MEDS ORDERED: Cefepime(*) 1 GM in NS 0.9% 50 ML* 50 ML IVPB SCH (19:00)
[2016-10-12] MEDS ORDERED: Mouth Piece, Nicotine* 1 EACH CARTRIDGE INH SCH (19:13)
[2016-10-12] MEDS: Morphine TAB Extended Release (*) 30 MG TAB.ER PO SCH (19:54)
[2016-10-12] MEDS: Morphine TAB Extended Release (*) 15 MG TAB.ER PO SCH (19:54)
[2016-10-12] MEDS ORDERED: Spironolactone TAB* 25 MG PO SCH (21:00)
[2016-10-12] MEDS ORDERED: Torsemide TAB* 20 MG PO SCH (21:00)
[2016-10-12] MEDS: ARIPiprazole TAB* 5 MG PO SCH (22:02)
[2016-10-12] MEDS: Hydroxychloroquine TAB* 200 MG PO SCH (22:03)
[2016-10-12] MEDS: Potassium Chlor TAB* 10 MEQ TAB.ER PO SCH (22:03)
[2016-10-12] MEDS: traZODone TAB* 100 MG PO SCH (22:03)
[2016-10-12] MEDS: Nicotine Inhaler* 10 MG AMP INH PRN (22:09)
[2016-10-12] MEDS: Cefepime(*) 1 GM in NS 0.9% 50 ML* 50 ML IVPB SCH (23:17)
[2016-10-12] MEDS: NS 0.9% 1000 ML* 1,000 ML IV SCH (23:20)
--- NOTE | 2016-10-12 23:28 | HP ---
CC: Dr. Mar * [facility] MEDICINE HISTORY AND PHYSICAL: DATE OF ADMISSION: 10/12/16 PRIMARY CARE PHYSICIAN: Dr. Mar. ATTENDING PHYSICIAN: Chriss Fallon MD * (dictation provided by Rossy Kaplan NP). CHIEF COMPLAINT: Left lower extremity ulceration. HISTORY OF PRESENT ILLNESS: Ms. Aguiar is a 61-year-old female with a past medical history of systemic lupus erythematosus; factor V Leiden deficiency, on chronic Coumadin with history of pulmonary embolism; chronic back pain; COPD with persistent nicotine use, who presents to the hospital on 10/12/16 with concern for left lower extremity ulceration with cellulitis. Ms. Aguiar was discharged from our hospital on 09/23/16 after being treated for left lower extremity cellulitis and ulceration. At that time, she was discharged home on doxycycline and ciprofloxacin to complete a 10-day course. The patient states she completed those antibiotics on about 10/03/16. She saw Dr. Mar today in followup and he noted that the patient had worsening ulceration and redness and therefore had her directly admitted to the hospital. The patient states that the ulceration is painful. She describes a shooting, stabbing type pain. She feels that the drainage is more purulent. The erythema seems essentially unchanged and is similar to that on her right leg. She denies any fevers. She has had no chills. She has no chest pain. No shortness of breath or nausea, vomiting, diarrhea or abdominal pain. PAST MEDICAL HISTORY: 1. Chronic back pain. 2. Depression. 3. Anxiety. 4. COPD. 5. Tobacco abuse. 6. History of PE. 7. Factor V Leiden deficiency. 8. History of IV drug use. 9. History of systemic lupus erythematosus. 10. Hypertension. 11. GI bleed due to aspirin and warfarin use ,2015. 12. History of heart murmur, followed by Dr. Briones. PAST SURGICAL HISTORY: 1. Appendectomy. 2. . 3. Hysterectomy, partial. 4. L4-L5 diskectomy. 5. Dorsal column stimulator. 6. Dental extractions. 7. Tonsillectomy. 8. Lumbar hemilaminectomy. MEDICATIONS: Today are: 1. Pravastatin 10 mg p.o. daily. 2. Aripiprazole 5 mg p.o. at bedtime. 3. Baclofen 10 mg p.o. b.i.d. 4. Duloxetine 60 mg p.o. daily. 5. Diazepam 5 mg p.o. t.i.d. p.r.n. 6. Docusate 100 mg p.o. b.i.d. p.r.n. 7. Plaquenil 200 mg p.o. b.i.d. 8. MS Contin 75 mg p.o. q.8 hours. 9. Morphine IR 15 mg p.o. q.4 hours p.r.n. 10. Nicotine inhaler p.r.n. 11. Orphenadrine 100 mg p.o. t.i.d. p.r.n. 12. Potassium chloride 10 mEq p.o. t.i.d. 13. Spironolactone 25 mg p.o. b.i.d. 14. Torsemide 20 mg p.o. b.i.d. 15. Warfarin 5 mg p.o. daily. 16. Prednisone 5 mg p.o. daily. 17. Trazodone 100 mg p.o. at bedtime. ALLERGIES: To ADHESIVE TAPE, ASPIRIN and CODEINE. FAMILY HISTORY: The patient states that her mom had breast, bone and skin and lung cancer and dad related to lymphatic cancer. Her sister 2 years ago from lung and brain cancer. SOCIAL HISTORY: The patient is a continued smoker. She rolls her own cigarettes and smokes about a pack a day and that would be 20 cigarettes. She denies any alcohol or drug use. She lives with her , but states that her friend, Consuelo Toledo, who lives in [place], would be her healthcare proxy. REVIEW OF SYSTEMS: A 14-point review of systems was completed with Ms. Aguiar, and all those not mentioned above were negative. PHYSICAL EXAMINATION GENERAL: Ms. Aguiar is sitting in the bed. She is in no acute distress. VITAL SIGNS: Temperature 98.3, heart rate 68, respiratory rate 16, blood pressure 129/76. LUNGS: Clear to auscultation bilaterally with no accessory muscle use and good aeration. HEART S1, S2. No murmur, rub, or gallop and regular. ABDOMEN: Soft, nontender with bowel sounds positive x4. EXTREMITIES: No cyanosis or edema. The patient has erythema to bilateral lower extremities about half way up the moe, circumferentially. Right and left are equal. NEURO: She is alert. She is oriented x3. She moves all extremities equally. There is no facial asymmetry or focal weakness. Extraocular movements are intact. SKIN: Intact except for the patient's left lower extremity ulceration, it is approximately 1.5 to 2 inches in diameter. There is a yellow slough. LABORATORY DATA: WBC 7.9, hemoglobin 14.5, hematocrit 44, platelet count 254. Sodium 136, potassium 3.8, chloride 96, serum bicarbonate 35, BUN 13, creatinine 1.01, CRP 6.28. ASSESSMENT: Ms. Aguiar is a 61-year-old female with a past medical history of admission to our hospital with discharge on 09/23/16 after being treated for left lower extremity cellulitis with ulceration. She also has history of factor V Leiden deficiency, on Coumadin with history of pulmonary embolism, systemic lupus erythematosus, and chronic back pain. She returns to the hospital today from Dr. Mar's office out of concern for worsening ulceration , status post completion of antibiotic treatment. Our plan is for inpatient admission as I expect the length of stay to be greater than 2 days for the following. 1. Left lower extremity ulceration: The patient was reported to have had a wound culture at Dr. Mar's office, which was positive for pseudomonas, Stenotrophomonas and enterococcus. Based on this polymicrobial infection, plan to treat with cefepime pending consultation with Dr. Faustin tomorrow. The patient does not appear acutely or systemically ill. She is afebrile. White count is normal. Her CRP is only 6. 2. Chronic pain. Continue home medications. 3. History of factor V Leiden deficiency. Continue Coumadin, INR is pending. 4. History of chronic pain. Continue home pain medications. 5. Systemic lupus erythematosus. Continue home medications. 6. DVT prophylaxis with warfarin. 7. Code status is full code. TIME SPENT: Approximately 60 minutes were spent on the admission of this patient, more than half time was spent at the bedside reviewing the events leading up to this hospitalization, performing the physical examination, and reviewing the plan of care. ROSSY KAPLAN, SHARON [id number]/[facility] #: [id number] [place]
[2016-10-13] MEDS: Morphine TAB Extended Release (*) 30 MG TAB.ER PO SCH ×3 (02:50→18:22)
[2016-10-13] MEDS: Morphine TAB Extended Release (*) 15 MG TAB.ER PO SCH ×3 (02:52→18:23)
[2016-10-13] MEDS ORDERED: NS 0.9% 1000 ML* 1,000 ML IV ONE (04:20)
[2016-10-13] MEDS: Morphine ORAL.SOLN 10 mg* 2 MG/ML UDC 5 ml PO PRN ×3 (06:14→22:27)
[2016-10-13 06:16] LABS: Hematocrit 44 % (35-47); Hemoglobin 14.3 g/dl (12.0-16.0); Mean Corpuscular HGB Conc 32 g/dl (31-36); Mean Corpuscular Hemoglobin 31 pg (27-31); Mean Corpuscular Volume 97 fL (80-97); Mean Platelet Volume 9 um3 (7.4-10.4); Red Blood Count 4.55 10^6/ul (4.0-5.4); Red Cell Distribution Width 14 % (10.5-15); White Blood Count 5.3 10^3/ul (3.5-10.8)
[2016-10-13] MEDS ORDERED: NS 0.9% 1000 ML* 1,000 ML IV SCH (07:30)
[2016-10-13 07:31] LABS: BUN/Creatinine Ratio 15.6 (8-20); Blood Urea Nitrogen 19 mg/dL (6-24); CO2 Carbon Dioxide 29 mmol/L (22-32); Calcium 8.1 mg/dL (8.6-10.3); Chloride 102 mmol/L (101-111); EGFR African American 57.8 (>60); Glucose 95 mg/dL (70-100); Sodium 138 mmol/L (133-145)
[2016-10-13] MEDS: Hydroxychloroquine TAB* 200 MG PO SCH ×3 (07:38→21:55)
[2016-10-13] MEDS: DULoxetine DR CAP* 30 MG CAP.DR PO SCH (07:38)
[2016-10-13] MEDS: Potassium Chlor TAB* 10 MEQ TAB.ER PO SCH ×3 (07:39→21:55)
[2016-10-13] MEDS: predniSONE TAB* 5 MG PO SCH (07:39)
[2016-10-13 08:11] LABS: Anion Gap 7 mmol/L (2-11)
--- NOTE | 2016-10-13 09:26 | PN ---
Subjective Date of Service: 10/13/16 Interval History: Ms. Aguiar states that she is feeling tired but denies other complaint. She denies chest pain, SOB, nausea, or abdominal pain. Objective Active Medications: Aripiprazole (Abilify Tab*) 5 mg PO BEDTIME DARRIN Baclofen (Lioresal Tab*) 10 mg PO BID PRN Device (Nicotine Mouth Piece*) 1 each INH .[facility] Diazepam (Valium Tab(*)) 5 mg PO TID PRN Docusate Sodium (Colace Cap*) 100 mg PO BID PRN Duloxetine HCl (Cymbalta Cap*) 60 mg PO DAILY [facility] Hydroxychloroquine Sulfate (Plaquenil Tab*) 200 mg PO BID [facility] Sodium Chloride (Ns 0.9% 1000 Ml*) 1,000 mls @ 75 mls/hr IV PER RATE [facility] Cefepime HCl 1 gm/ Sodium (Chloride) 50 mls @ 100 mls/hr IVPB 1100,2300 [facility] Morphine Sulfate (Ms Contin(*)) 60 mg PO Q8H DARRIN Morphine Sulfate (Morphine Oral.Soln 10 Mg*) 15 mg PO Q4HR PRN Morphine Sulfate (Ms Contin(*)) 15 mg PO Q8H [facility] Nicotine (Nicotine Inhaler*) 10 mg INH Q2H PRN Non-Formulary Medication (Orphenadrine Citrate [Orphenadrine Citrate Cr]) 100 mg PO TID PRN Potassium Chloride (Klor Con Er Tab*) 10 meq PO TID [facility] Prednisone (Deltasone Tab*) 5 mg PO DAILY [facility] Trazodone HCl (Desyrel Tab*) 100 mg PO BEDTIME [facility] Warfarin Sodium (Coumadin Tab(*)) 5 mg PO DAILY@1700 [facility] Vital Signs 10/12/16 10/12/16 10/12/16 17:10 18:23 18:25 Temperature 98.3 F Pulse Rate 135 68 Respiratory 16 16 Rate Blood Pressure 129/76 (mmHg) O2 Sat by Pulse 99 Oximetry 10/12/16 10/12/16 10/12/16 19:23 19:54 20:00 Temperature 97.6 F Pulse Rate 67 Respiratory 16 17 19 Rate Blood Pressure 97/62 (mmHg) O2 Sat by Pulse 100 Oximetry 10/12/16 10/12/16 10/13/16 21:54 23:50 00:01 Temperature 98.1 F Pulse Rate 57 Respiratory 16 17 Rate Blood Pressure 81/48 98/54 (mmHg) O2 Sat by Pulse 98 Oximetry 10/13/16 10/13/16 10/13/16 02:50 02:52 03:20 Temperature Pulse Rate 55 Respiratory 17 18 18 Rate Blood Pressure 80/47 (mmHg) O2 Sat by Pulse 88 Oximetry 10/13/16 10/13/16 10/13/16 04:00 06:14 06:27 Temperature Pulse Rate Respiratory 18 Rate Blood Pressure 78/54 76/46 (mmHg) O2 Sat by Pulse Oximetry 10/13/16 10/13/16 10/13/16 07:48 07:50 08:00 Temperature 98.0 F Pulse Rate 52 Respiratory 18 18 Rate Blood Pressure 76/47 (mmHg) O2 Sat by Pulse 85 94 Oximetry Oxygen Devices in Use Now: None Appearance: Female lying in bed in NAD Eyes: No Scleral Icterus Ears/Nose/Mouth/Throat: Mucous Membranes Moist Neck: Trachea Midline Respiratory: Symmetrical Chest Expansion and Respiratory Effort, Clear to Auscultation Cardiovascular: NL Sounds; No Murmurs; No JVD, No Edema Abdominal: NL Sounds; No Tenderness; No Distention Lymphatic: No Cervical Adenopathy Extremities: No Edema Skin: - - Ulcer to L LE Neurological: Alert and Oriented x 3, NL Muscle Strength and Tone Nutrition: Taking PO's Result Diagrams: 10/13/16 05:35 10/13/16 08:42 Microbiology and Other Data: Microbiology 10/12/16 23:41 Skin and Soft Tissue MRSA/MSSA (PCR - Final Leg Left Mrsa Negative S.aureus Negative Gram Stain - Final Assess/Plan/Problems-Billing Assessment: Ms. Aguiar is a 61 yo female with a PMH of SLE, factor V leiden on warfarin, tobacco abuse, and recent admission for L LE ulcer who was admitted on 10/12/16 with worsening L LE ulceration and concern for cellulitis. - Patient Problems (1) Cellulitis of left lower extremity Comment: - With 1.5 cm ulceration. No evidence of systemic illness, CRP 6, no leukocytosis. - Polymicrobial from report from Dr. Mar's office, with pseudomonas, stenotrophomonas, and enterococcus. - Continue cefepime pending ID consult. - Wound care consult placed. (2) HTN (hypertension) Comment: - Pt is hypotensive but asymptomatic. No tachycardia noted. - Continue fluid bolus. Hold diuretics. (3) SLE (systemic lupus erythematosus) Comment: - Continue plaquenil and prednisone. (4) COPD (chronic obstructive pulmonary disease) Comment: - No signs of exacerbation. (5) Depression Comment: - Continue abilify and duloxetine. (6) Chronic pain Comment: - History of multiple back surgeries and dorsal root stimulator. - Continue baclofen, valium, morphine per home routine. (7) Tobacco abuse Comment: - Smoking cessation encouraged. - Nicotine replacemen therapy available prn. (8) DVT prophylaxis Comment: - Warfarin with therapeutic INR. (9) Full code status Status and Disposition: Inpatient with expected LOS > 2 days. Anticipate discharge to home when medically stable.
[2016-10-13] MEDS: NS 0.9% 1000 ML* 1,000 ML IV SCH (10:04)
[2016-10-13] MEDS: Nicotine Inhaler* 10 MG AMP INH PRN ×2 (11:16→14:04)
[2016-10-13] MEDS: Cefepime(*) 1 GM in NS 0.9% 50 ML* 50 ML IVPB SCH (11:20)
[2016-10-13] MEDS ORDERED: Warfarin TAB(*) 5 MG PO SCH (17:00)
[2016-10-13] MEDS ORDERED: cefTRIAXone VIAL(*) 1,000 MG in NS 0.9% 50 ML* 50 ML IVPB SCH (21:00)
[2016-10-13] MEDS: traZODone TAB* 100 MG PO SCH (21:55)
[2016-10-13] MEDS: ARIPiprazole TAB* 5 MG PO SCH (21:55)
--- NOTE | 2016-10-13 22:24 | CONS ---
CONSULTATION REPORT: DATE OF CONSULT: 10/13/16 REQUESTING PROVIDER: Rossy Kaplan NP CONSULTING SERVICE: Infectious Disease. REASON FOR CONSULT: Left leg wound. IMPRESSION: 1. Recent bilateral moe wound from a fall complicated by bilateral cellulitis , treated with antibiotics, the right wound is healed, the left ulceration persists with mild surrounding erythema and tenderness. There is no warmth. CRP is 6. I do not think the infection is the predominant issue in her failure to heal so far and her pain. 2. Lupus. 3. History of pulmonary embolus, anticoagulated. RECOMMENDATION: I will change Rocephin to ceftriaxone and please ask wound clinic to evaluate her for topical therapy, question of debridement. HISTORY OF PRESENT ILLNESS: A 61-year-old woman with lupus admitted with left leg pain and ulceration. She had fallen a few weeks ago and hit both shins on a step, developed ulcers with bilateral cellulitis around those ulcers. She was in the hospital for a few days in August. Got much better with IV antibiotics. Discharged on doxycycline and Cipro. The right foot ulceration resolved. The left wound was slowly getting better and then she finished the antibiotics and felt like maybe for a day or two started getting worse again in terms of pain. The redness was about the same, though no longer warm. She had had no fevers, chills, or sweats, and her appetite was good. She was seen by Dr. Mar, who asked her to come back into the hospital last night. She was started on cefepime. She has been afebrile. The pain is about the same today. PAST MEDICAL HISTORY: 1. Lupus. 2. Pulmonary embolus, on anticoagulation. 3. Factor V Leiden. 4. Chronic back pain. 5. Depression. 6. Anxiety. 7. COPD. 8. Past IV drug use. 9. Hypertension. 10. GI bleed. 11. Heart murmur. 12. Status post appendectomy. 11. Status post . 12. Status post hysterectomy. 13. Status post lumbar diskectomy. 14. Status post dorsal column stimulator placement. 15. Status post tonsillectomy. MEDICATIONS: 1. Aripiprazole. 2. Baclofen. 3. Cefepime 1 g twice daily. 4. Duloxetine. 5. Diazepam. 6. Docusate. 7. Plaquenil. 8. Morphine. 9. Nicotine inhaler. 10. Warfarin. 11. Prednisone. 12. Trazodone. ALLERGIES: ADHESIVE, ASPIRIN, and CODEINE. FAMILY HISTORY: Mom had breast cancer and father from lymphoma. SOCIAL HISTORY: She smokes tobacco. No alcohol or injection drugs. REVIEW OF SYSTEMS: All negative to full review of systems except as noted above. PHYSICAL EXAM: Vital Signs: Temperature is 37, heart rate 60, respiratory rate 20, blood pressure 92/60, O2 sat 90% on room air. General: She is awake, not in distress. Neurologic: She is oriented x3. Follows all commands. HEENT : There is no conjunctival hemorrhage. Oropharynx without lesions. Neck: Supple. Lymph Nodes: There is no inguinal lymphadenopathy. Heart: Regular rate and rhythm. Lungs: Clear to auscultation bilaterally. Abdomen: Soft, nontender, nondistended. Bowel sounds present. Skin: There is no rash or splinter hemorrhages. Musculoskeletal: Right moe ulceration has healed. There is a left anterior mid moe 2-cm ulceration with surrounding mild erythema , tenderness, induration. There is no fluctuance or crepitus. There is no warmth. There is some slough on the base of the wound. LABORATORY DATA: White blood cell count 5, hemoglobin 14, platelets 132. Creatinine 1.2. Please see impressions and recommendations outlined above. Thank you for asking me to see Ms. Aguiar in consultation. [id number]/[facility] #: [id number] [facility] CENTERJovita
[2016-10-14] MEDS: NS 0.9% 1000 ML* 1,000 ML IV SCH (01:36)
[2016-10-14] MEDS: Morphine TAB Extended Release (*) 30 MG TAB.ER PO SCH ×2 (03:15→10:43)
[2016-10-14] MEDS: Morphine TAB Extended Release (*) 15 MG TAB.ER PO SCH ×2 (03:15→10:44)
[2016-10-14] MEDS ORDERED: NS 0.9% 1000 ML* 1,000 ML IV SCH (06:33)
[2016-10-14 07:31] VITALS: BP 92/56
[2016-10-14] MEDS: DULoxetine DR CAP* 30 MG CAP.DR PO SCH (07:53)
[2016-10-14] MEDS: Potassium Chlor TAB* 10 MEQ TAB.ER PO SCH ×2 (07:53→13:39)
[2016-10-14] MEDS: Hydroxychloroquine TAB* 200 MG PO SCH (07:53)
[2016-10-14] MEDS: Morphine ORAL.SOLN 10 mg* 2 MG/ML UDC 5 ml PO PRN ×2 (07:53→12:53)
[2016-10-14] MEDS: predniSONE TAB* 5 MG PO SCH (07:53)
[2016-10-14 09:54] LABS: BUN/Creatinine Ratio 16.5 (8-20); EGFR African American 95.5 (>60); EGFR Non-African American 74.2 (>60)
[2016-10-14 10:24] LABS: Potassium 4.7 mmol/L (3.5-5.0)
--- NOTE | 2016-10-14 12:04 | PN ---
Progress Note - Progress Note Date of Service: 10/14/16 SOAP: Subjective: CC: cellulitis HPI: 61 yo woman with Left lower leg wound, mild surrounding erythema and associated pain, both improving. No fever, rash, or diarrhea. Objective: [] Vital Signs Temp 36.8 C 10/14/16 07:31 Pulse 50 10/14/16 07:31 Resp 16 10/14/16 10:44 BP 92/56 10/14/16 07:31 Pulse Ox 97 10/14/16 07:31 Intake & Output 10/13/16 10/14/16 10/14/16 18:59 06:59 18:59 Intake Total 1320 2612 Balance 1320 2612 Intake: IV Fluids 750 2372 NS (0.9%) 750 2372 Oral 570 240 Other: Estimated Void Large Medium # Bowel Movements 0 0 # Voids 1 1 Gen:awake, no distress HEENT:PERRL, MMM Neck:Supple Heart:RRR no murmur Lungs:CTA BL Abd:+BS NTND soft Skin: left moe 1.5 cm ulceration with fibrinous slough mild surrounding erythema Laboratory Results - last 24 hr 10/14/16 10/14/16 06:30 09:03 INR (Anticoag Therapy) 2.01 H Sodium 136 Potassium 4.7 Chloride 108 Carbon Dioxide 22 Anion Gap 6 BUN 13 Creatinine 0.79 Est GFR ( Amer) 95.5 Est GFR (Non-Af Amer) 74.2 BUN/Creatinine Ratio 16.5 Glucose 81 Calcium 8.0 L Assessment: 1. left leg cellulitis associated with chronic non pressure wound , likely staph , strep. Had polymicrobial outpatient culture which I think is more likely colonization of the wound. 2. SLE 3. hx PE Plan: 1. clinda 300 mg po tid x10 days; fu with me 1-2 weeks and with wound clinic. Discussed with Avi WEBER
--- NOTE | 2016-10-15 08:05 | DS ---
CC: Dr. Mar; Dr. Arun Faustin; [facility] * DISCHARGE SUMMARY: DATE OF ADMISSION: 10/12/16 DATE OF DISCHARGE: 10/14/16 PRIMARY CARE PROVIDER: Dr. Mar. CONSULTING INFECTIOUS DISEASE SPECIALIST: Dr. Faustin. DISCHARGING PROVIDER: GUS Webb SUPERVISING PHYSICIAN: Dr. Bijan Fallon.* (DICTATED BY GUS WEBB) PRIMARY DISCHARGE DIAGNOSIS: Left lower extremity ulceration with associated cellulitis. SECONDARY DISCHARGE DIAGNOSES: 1. Hypertension. 2. Lupus. 3. Chronic obstructive pulmonary disease without acute exacerbation. 4. Depression. 5. Chronic pain. 6. Tobacco abuse. DISCHARGE MEDICATIONS: 1. Abilify 5 mg p.o. at bedtime. 2. Baclofen 10 mg p.o. twice daily as needed for pain and spasm. 3. Clindamycin 300 mg p.o. t.i.d. x10 days. 4. Cymbalta 60 mg p.o. daily. 5. Diazepam 5 mg p.o. t.i.d. as needed for anxiety. 6. Docusate 100 mg p.o. b.i.d. 7. Plaquenil 200 mg p.o. b.i.d. 8. Morphine sulfate, a total of 75 mg. 9. Orphenadrine citrate 100 mg p.o. t.i.d. as needed for spasm. 10. Potassium chloride 10 mEq p.o. t.i.d. 11. Pravastatin 10 mg p.o. daily. 12. Spironolactone 25 mg p.o. b.i.d. 13. Torsemide 20 mg p.o. b.i.d. 14. Coumadin 5 mg p.o. daily. 15. Prednisone 5 mg p.o. daily. 16. Trazodone 100 mg p.o. at bedtime. Medication changes: 1. Discontinue doxy and Cipro. 2. Start clindamycin x10 days per Infectious Disease. HOSPITAL IMAGING: None. HOSPITAL COURSE: This is a 61-year-old female with lupus, factor V Leiden deficiency with prior PE, COPD, chronic pain, and anxiety with depression, who presented at the recommendation of her primary care provider for worsening cellulitis associated with left lower extremity ulceration. The patient was discharged after treatment of her cellulitis on 09/23/16 with Cipro and doxy for presumed polymicrobial infection. She was seen by her primary care provider with concerns for worsening cellulitis and was referred back to the hospital for reevaluation and was subsequently readmitted. On initial labs, she had no leukocytosis. Initial CRP was only mildly elevated to 6.28 without any significant abnormalities on chemistry and the patient was noted to be afebrile. She was initially treated with cefepime and changed to ceftriaxone and reevaluated by infectious disease specialist, Dr. Arun Faustin. Repeat labs showed again no leukocytosis. The patient remained afebrile throughout her hospital stay. The patient noted some improvement in her erythema with additional IV antibiotics. Preceding the patient's prior hospitalization at the end of August and beginning of September, she had received clindamycin and one additional antibiotic without significant improvement in her symptoms. She, again, was discharged with doxycycline and Cipro and felt that perhaps, there was some small improvement with that but not complete resolution of her left lower extremity wound or surrounding erythema. Wound culture from her prior visit was not completed, but blood cultures remained negative. Wound culture from this visit grew Staphylococcus schleiferi, which was likely not event representative of true pathogen. The patient was noted to have bilateral lower extremity edema, which is likely contributing to her persistent left leg ulceration, which is a result of trauma to her leg several weeks ago. As the patient did show some interval improvement and no signs of sepsis or bacteremia, it was appropriate for the patient to be discharged to home with additional oral antibiotics. Antibiotic choices were discussed with infectious disease specialist, Dr. Arun Faustin, who suggested an additional 10 days of clindamycin. He acknowledged that she had previously been on clinda as an outpatient several weeks before without significant improvement, but felt that it was the appropriate antibiotic choice and the patient simply required a few days of IV antibiotics to overcome her initial infection. DISPOSITION AND FOLLOWUP PLAN: The patient is being discharged to home with an additional 10 days of clindamycin as described above. She has been referred to the wound care clinic and also received instructions on how to appropriately treat her edema at home. She received instructions to apply an Dyllan wrap and/or compression sock to both legs, but especially the left leg as well as to keep her legs elevated to reduce the amount of edema and promote appropriate wound healing. GUS WEBB [id number]/[facility] #: [id number] [place]
== END 2016-10-14 14:11 | disposition home or self-care (01) | DRG 383 ==
LOC: MED 16:40
PROVIDERS: ADMIT Internal Medicine; ATTEND Internal Medicine
DX: L03.116 Cellulitis of left lower limb (principal); D68.51 Activated protein C resistance; M32.9 Systemic lupus erythematosus, unspecified; L97.921 Non-pressure chronic ulcer of unspecified part of left lower leg limited to breakdown of skin; B95.61 Methicillin susceptible Staphylococcus aureus infection as the cause of diseases classified elsewhere; I10 Essential (primary) hypertension; J44.9 Chronic obstructive pulmonary disease, unspecified; G89.29 Other chronic pain; F17.210 Nicotine dependence, cigarettes, uncomplicated; F41.8 Other specified anxiety disorders; Z86.711 Personal history of pulmonary embolism; Z79.01 Long term (current) use of anticoagulants; Z79.891 Long term (current) use of opiate analgesic; Z79.52 Long term (current) use of systemic steroids; Z79.899 Other long term (current) drug therapy; Z88.6 Allergy status to analgesic agent; Z88.5 Allergy status to narcotic agent; Z91.048 Other nonmedicinal substance allergy status; Z80.3 Family history of malignant neoplasm of breast; Z80.7 Family history of other malignant neoplasms of lymphoid, hematopoietic and related tissues
CPT/HCPCS: 36415; 80048; 80053; 85025; 85610; 86140; 87070; 87077; 87186; 87205; 87640; 87641; 99406; A9270-GY; J0692; J0696; J7512

== ENCOUNTER 2017-01-13 15:11 | Emergency (ER) | payer OTHER ==
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
[2017-01-13 18:22] VITALS: BP 112/60
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
== END 2017-01-13 18:40 | disposition home or self-care (01) ==
LOC: ED 15:11
DX: M48.00 Spinal stenosis, site unspecified (principal); M54.5 Low back pain; R51 Headache; Z79.01 Long term (current) use of anticoagulants; F17.210 Nicotine dependence, cigarettes, uncomplicated
CPT/HCPCS: 72131; 99282

== ENCOUNTER 2017-06-26 13:08 | Emergency (ER) | payer OTHER ==
--- OUTSIDE RECORDS SUMMARY | 2017-06-26 14:29 | XMS REPORT ---
:1955 External Reference #:[id number] Author Organization [employer] Address [address] [address] Phone [phone] Care Team Providers Name Role Phone Ryan Mar MD Primary Care Physician Unavailable Payers Type Date Identification Numbers Payment Provider Subscriber Commercial Policy Number: [id number] Norie[employer] Medicaid Paris Aguiar PayID: [id number] [address] [address] [place] [address] Workers Compensation Effective: Policy Number: State Insurance Paris Aguiar 2005 [id number] Fund Onset: 2005 Group Number: [id number] [address] [address] PayID: [place] [address] Problems Date Description Provider Status Onset: 06/20/2013 Lumbar post-laminectomy syndrome Shaan Mai M.D. Active Onset: 06/20/2013 Mechanical complication of nervous Shaan Mai M.D. Active system device, implant AND/OR graft Family History Date Family Member(s) Problem(s) Comments General Emphysema Father Leukemia Father due to Lymphoma () - at age 54 Father Alcoholism Mother Breast Cancer Mother due to Breast Cancer () - at age 61 Mother Alcoholism Siblings 2 1 sister of lung and brain cancer 1 brother - unknown Social History Type Date Description Comments Marital Status Lives With Alone Occupation Disabled Cigarette Use Heavy tobacco smoker (more than 10 cigarettes/day) ETOH Use Occasionally consumes alcohol Smoking Patient is a current smoker, smokes every day 1 ppd Recreational Drug Use Denies Drug Use Daily Caffeine Consumes on average 3 cups of regular coffee per day Daily Caffeine Consumes on average 1 soda per day Exercise Type/Frequency Exercises regularly Allergies, Adverse Reactions, Alerts Date Description Reaction Status Severity Comments 02/10/2013 Adhesive active 04/08/2016 Codeine active 04/08/2016 Aspirin active Medications Medication Date Status Form Strength Qnty SIG Indications Ordering Provider Bevespi 05/31 Active Aerosol 9-4.8mcg/ 17.7g 2 puffs J44.9 Rocio S. Aerosphere /2017 Act m inhalation Foster, twice N.P. daily. Nicotine 04/29 Active Patches 14mg/24HR 30uni 1 patch on [id number] Idalia 24HR ts skin every Micky, day Nicotine 04/29 Active Lozenges 4mg 60uni 1 by mouth 7210 Idalia Polacrilex /2017 ts every 4 Micky, hours as MD needed Torsemide 09/13 Active Tablets 20mg 90tab 2 by mouth Chad s every day Ninfa Briones M.D. Trazodone HCL 08/11 Active Tablets 100mg 30tab 1 po qhs Shaan Garcia /2007 linh Mai M.D. Warfarin Sodium Active Tablets 2mg 60tab take as Unknown /0000 s directed (managed by Dr. Mar) Pravastatin Active Tablets 10mg 1 by mouth Unknown Sodium /0000 every day Nystatin Active Suspension [id number] 4 Unknown /0000 t/ML milliliter s four times a day, swish and swallow for 14 days as needed Tudorza Pressair Active Aerosol 400mcg/Ac 1 puff Unknown /0000 t twice a day Abilify Active Tablets 5mg 1 by mouth Unknown /0000 every day Baclofen Active Tablets 10mg take 1-2 Unknown /0000 tab every 8 hours as needed for muscle spasm Spironolactone Active Tablets 25mg 1 by mouth Unknown /0000 twice daily Diazepam Active Tablets 5mg 1 tablet Unknown /0000 by mouth two- three times daily for anxiety Prednisone Active Tablets 5mg 1/2 po qod Unknown /0000 Morphine Sulfate Active Tablets ER 15mg 1 tab by Unknown ER /0000 mouth tid (takes with 60 mg ER tid for total for 75 mg tid) Morphine Sulfate Active Tablets ER 60mg 1 tab by Unknown ER / with 15 MG to total 75 MG by mouth tid Hydroxychloroquin Active Tablets 200mg take one Unknown e Sulfate tablet by mouth twice a day Miralax Active Packet 3350NF 17 gm Unknown every day as needed Docusate Sodium Active Capsules 100mg 1 by mouth Unknown twice a day as needed Glycerin (Adult) Active Suppository 2gm insert 1 suppositor y rectally once per day as needed for constipati on Oxygen Active Misc please use o2 at 2l/min at night Orphenadrine Active Tablets ER 100mg 1 by mouth Unknown Citrate 12HR tid as needed Morphine Sulfate Active Tablets 15mg 4-6hrs as needed for pain KCL Active Tablets ER 10Meq 1 by mouth (1080 mg) three times a day Duloxetine HCL Active Caps DR 60mg 1 by mouth Part every day Aripiprazole Active Tablets 5mg take one tablet by mouth nightly at bedtime Enoxaparin Sodium 05/27 Hx Solution 60mg/0.6M 6unit Take one R22.31 Aaron S. L s injection Kassie - daily MD mehran 05/27 Enoxaparin Sodium 05/27 Hx Solution 100mg/ml 6unit Take daily R22.31 Aaron S. s one Kassie taylor MD as instructed . Cymbalta 02/[address] 60mg 90cap 1 po qd Bianca Mcclendon Part s Anahi Lopez Oxycontin 04/20 Hx Tablets ER 80mg 85tab 1 po bid Shaan Garcia 12HR s Anahi Mai Morphine Sulfate 12/30 Hx Tablets ER 100mg 120ta one po tid Shaan Garcia 12HR bs (not prn) Pau, - and one michael Christian 04/20 hs needed. Ensure Plus 03/25 Hx Liquid 90uni 1 can tid Shaan Garcia /2010 ts with meals Cyndy Mai M.D. 02/10 Tizanidine HCL 03/21 Hx Tablets 4mg 120ta 1-2 po bid Shaan Garcia /2010 bs prn Cyndy Mai M.D. 02/10 Baclofen 06/10 Hx Tablets 10mg 60tab 1/2 tablet Shaan Garcia /2009 s qiCyndy Monsivais M.D. 04/21 Amoxicillin 05/03 Hx Capsules 500mg 4caps take four Shaan Garcia tablets 30 Pau - to 60 M.DSavannah prior to dental procedure to reduce risk of infection to dorsal column stimulator . Multi-Vitamin/Min 12/24 Hx Tablets 50tab one po Shaan Garcia era s qday Cyndy Mai M.D. 02/10 Dilaudid 12/24 Hx Tablets 8mg 120ta 1 po qid Shaan Garcia /2008 bs prn pain Cyndy Mai M.D. 02/10 Neurontin 06/26 Hx Capsules 300mg 30cap 1 po q hs Shaan Garcia /2008 s Cyndy Mai M.D. 02/10 Ultram 01/02 Hx Tablets 50mg 120ta 1-2 PO qid Shaan Garcia /2007 Cyndy Fierro M.D. 03/21 Oxycontin 11/20 Hx Tablets ER 80mg 120ta 1 po qid Shaan Garcia /2007 12HR Cyndy Firero M.D. 04/20 Oxycontin 08/15 Hx Tablets ER 40mg 30tab 1 PO per Shaan Garcia /2007 12HR s day at Pau - mid-day Anahi 02/04 Oxycodone HCL 08/11 Hx Tablets 5mg 180ta 1-2 po tid Shaan Garcia /2007 Cyndy Fierro M.D. 02/04 Nefazadone 07/04 Hx 100mg 60uni 1 po bid Shaan Garcia /2007 ts Cyndy Mai M.D. 02/10 Oxycontin 06/22 Hx Tablets ER 40mg 60tab 1 PO bid Shaan Garcia /2007 12HR s Cyndy Mai M.D. 02/04 Soma 05/22 Hx Tablets 350mg 80tab 1 po qid Shaan Garcia /2007 s prn spasm Cyndy Mai M.D. 02/10 Tramadol HCL 05/02 Hx Tablets 50mg 120ta 1-2 po qid Shaan Garcia /2007 Cyndy Fierro M.D. 02/10 Oxycodone HCL 04/11 Hx Tablets 5mg 120ta 1-2 po qid Shaan Garcia /2007 bs Cyndy Yung M.D. 03/21 Oxycontin 04/11 Hx Tablets ER 20mg 90tab 1 po tid Shaan Garcia /2007 12HR s Cyndy Mai M.D. 06/22 Xanax 05/03 Hx Tablets 0.25mg 45tab 1-2 po tid Shaan Garcia /2006 s Cyndy Yung M.D. 11/16 Oxycodone HCL Hx Tablets 10mg 100ta 1 tablet Unknown /0000 bs po q6hrs prn Orphenadrine Hx Tablets ER 100mg 30tab one tab po Unknown Citrate ER /0000 12HR s q12 Metolazone Hx Tablets 2.5mg 10tab 1-2 PO qd Unknown /0000 s Iron Supplement Hx Tablets 325(65Fe) 90tab po qd Unknown /0000 mg s Klor-Con 10 Hx Tablets ER 10Meq 30tab 1 po qd Unknown /0000 s Alprazolam Hx Tablets 0.5mg 20tab 1 po bid Unknown /0000 s prn Furosemide Hx Tablets 20mg 30tab 1 po qam Unknown /0000 s Vitamin D3 High Hx Capsules 1000Unit 2 po qd Unknown Potency /0000 Rosehips Hx 1 PO qd Unknown /0000 - 06/20 Morphine Sulfate Hx Caps ER 60mg 1 by mouth Unknown ER /0000 24HR twice a - day 04/10 Torsemide Hx Tablets 20mg 1 by mouth Unknown /0000 every day - 07/[address] 60mg 1 by mouth Unknown /0000 Part every day - 11/17 Luiz-Polycin Hx Ointment 3.5-400-1 apply Unknown /0000 0000 every 4 - hours 04/28 awake for 7 days Medications Administered in Office Medication Date Status Form Strength Qnty SIG Indications Ordering Provider Inj, 09/14/ Administered Injection Gunner Edwards Regadenoson, 0.1 2016 DO Ruslan MG FACC Aminophylline 09/14/ Administered Injection Gunner Mercer DO FACC Technetium TC 09/14/ Administered Injection Gunner Edwards 99M Tetrofosmin, 2016 DO Ruslan Per Unit Dose Up FACC To 40 Millicuries Immunizations CPT Code Status Date Vaccine Lot # [id number] Given 11/17/2016 Influenza Virus Vaccine, Quadrivalent, Split, [id number] Preservative Free Vital Signs Date Vital Result Comment 05/31/2017 Height 66 inches 5'6" Weight 127.00 lb Heart Rate 68 /min BP Systolic Sitting 104 mmHg Lue reg cuff BP Diastolic Sitting 74 mmHg Lue reg cuff Respiratory Rate 14 /min O2 % BldC Oximetry 97 % On Ra BMI (Body Mass Index) 20.5 kg/m2 04/29/2017 Height 66 inches 5'6" Weight 125.00 lb Heart Rate 64 /min BP Systolic Sitting 104 mmHg BP Diastolic Sitting 60 mmHg Respiratory Rate 14 /min O2 % BldC Oximetry 92 % BMI (Body Mass Index) 20.2 kg/m2 Neck Circumference in inches 13.5 04/06/2017 Height 66 inches 5'6" Weight 134.00 lb with shoes Heart Rate 64 /min BP Systolic 120 mmHg L/Arm Reg Cuff not wall unit BP Diastolic 60 mmHg L/Arm Reg Cuff not wall unit BMI (Body Mass Index) 21.6 kg/m2 Ejection Fraction 55-60% Echocardiogram 09/29/2016 11/17/2016 Height 66 inches 5'6" Weight 137.00 lb Heart Rate 72 /min BP Systolic Sitting 110 mmHg BP Diastolic Sitting 70 mmHg Respiratory Rate 14 /min Body Temperature 98.9 F BMI (Body Mass Index) 22.1 kg/m2 10/09/2016 Height 66 inches 5'6" Weight 140.00 lb with shoes Heart Rate 85 /min BP Systolic Sitting 112 mmHg Ra reg cuff BP Diastolic Sitting 68 mmHg Ra reg cuff BMI (Body Mass Index) 22.6 kg/m2 Ejection Fraction 55% - 60% echo 09/29/16 07/30/2016 Height 66 inches 5'6" Weight 139.00 lb w/shoes Heart Rate 70 /min BP Systolic Sitting 120 mmHg LA reg cuff BP Diastolic Sitting 84 mmHg LA reg cuff BMI (Body Mass Index) 22.4 kg/m2 Ejection Fraction 60-65% Echo 07/30/15 07/01/2016 Heart Rate 72 /min Respiratory Rate 18 /min Body Temperature 97.9 F 06/17/2016 Heart Rate 76 /min Respiratory Rate 18 /min Body Temperature 98.3 F 05/27/2016 Weight 141.00 lb Heart Rate 76 /min BP Systolic 120 mmHg BP Diastolic 78 mmHg Respiratory Rate 16 /min Body Temperature 98.0 F 04/10/2016 Height 66 inches 5'6" Weight 147.00 lb Heart Rate 98 /min BP Systolic 102 mmHg BP Diastolic 70 mmHg Respiratory Rate 16 /min Body Temperature 98.4 F BMI (Body Mass Index) 23.7 kg/m2 06/20/2013 Height 64.5 inches 5'4.50" Weight 146.00 lb BP Systolic 120 mmHg BP Diastolic 78 mmHg Pain Level 9 low back, neck, arms BMI (Body Mass Index) 24.7 kg/m2 02/10/2013 Heart Rate 76 /min BP Systolic Sitting 140 mmHg BP Diastolic Sitting 90 mmHg Respiratory Rate 18 /min Results Test Date Test Result H/L Range Note Order 08/18/2016 Holter Monitor 0 Laboratory test 06/08/2016 Surgical SEE RESULT 1 finding Pathology BELOW Inr/Protime 06/08/2016 Inr 0.95 0.89-1.11 Laboratory test 06/08/2016 Partial Thrombo 30.9 seconds 26.0-36.3 finding Time P[employer] 02/22/2010 Inr 3.06 High 0.82-1.17 2, 3 Normalized Ratio Protime 38.3 SEC High 10.2-14.8 2, 4 Laboratory test finding 12/09/2009 Anti Thrombin III Activity 83 % 80- 130 5 Factor 5 Leiden Mutation 12/09/2009 Factor 5 Leiden Mut Method . () 6 Factor 5 Leiden Mut Result Heterozygous Negative 7 Factor 5 Leiden Mut Interp . () 8 Reviewed By Linda De La Torre MD () 9 Laboratory test finding 12/09/2009 Homocysteine 6 umol/L () 10 Cardiolipin Igg,Igm,Iga AB 12/09/2009 Cardiolipin Igg AB <4.0 GPL () 11 Cardiolipin Igm AB <4.0 MPL () 12 Cardiolipin Iga AB <4.0 APL () 13 Laboratory test finding 12/09/2009 Protein C Activity 40 % 70-150 14 Protein S Activity 30 % 65-160 15 Comp Metabolic Panel 12/05/2008 Sodium 138 mmol/L 135-145 Potassium 4.0 mmol/L 3.5-5.0 Chloride 100 mmol/L Low 101-111 Co2 (Carbon Dioxide) 32.0 mmol/L 22-32 Anion Gap 6.0 mmol/L 2-11 16 Glucose 81 mg/dL 70-100 17 BUN 5 mg/dL Low 6-24 Creatinine 0.70 mg/dL 0.50-1.40 One Over Creatinine 1.40 BUN/Creatinine Ratio 7.1 Low 8-20 Calcium 8.7 mg/dL 8.1-9.9 18 Total Protein 5.9 GM/DL Low 6.2-8.1 Albumin 3.9 GM/DL 3.6-5.4 Globulin 2.0 GM/DL 2-4 Albumin/Globulin Ratio 2.0 1-3 Bilirubin Total 0.3 mg/dL Low 0.4-1.5 19 Alkaline Phosphatase 114 U/L High 30-110 Alt (SGPT) 14 U/L 14-54 Ast (Sgot) 19 U/L 12-42 eGFR Non- 93.4 > 60 eGFR 113.0 > 60 20 Laboratory test finding 12/05/2008 Thyroxine Free 0.77 NG/ML 0.61-1.24 21 TSH 2.98 MIU/ML 0.34-5.60 Rheumatoid Factor < 20.0 IU/mL Less Than 20 C Reactive Protein 0.9 mg/dL High Less Than 0.5 CBC With Electronic Diff 12/05/2008 White Blood Count 4.7 CUMM Low 4.8- 10.8 Red Cell Count 4.49 CUMM 4.2-5.4 Hemoglobin 14.2 g/dL 12.0-16.0 Hematocrit 42 % 35-47 Mean Corpuscular Volume 94 um3 79-97 Mean Corpuscular Hemoglob 32 pg High 27-31 Mean Corpuscular HGB Cone 34 g/dL 32-36 Redcell Distribution WDTH 13 % 10.5-15 Platelet Count 246 CUMM 150-450 Mean Platelet Volume 7.2 um3 Low 7.4-10.4 Gran % 64.5 % 38-83 Lymph % 23.1 % Low 25-47 Mononuclear % 9.1 % High 1-9 Eosinophil % 2.8 % 0-6 Basophil % 0.5 % 0-2 Abs Lymphs 1.1 1.0-4.8 Abs Mononuclear 0.4 0-0.8 Absolute Neutrophil Count 3.1 1.5-7.7 Abs Eosinophils 0.1 0-0.6 Abs Basophils 0 0-0.2 Laboratory test finding 12/05/2008 Erythrocyte Sed Rate 6 MM/HR 0-30 Simin 12/05/2008 Antinuclear AB NEGATIVE Negative Reviewed By (SEE NOTE) 22 Surgical Pathology 11/03/2007 Surgical Pathology <SEE 23 NOTE> Type And Screen 11/02/2007 Patient Blood Type O POSITIVE 24 Antibody Screen NEGATIVE 24 Specimen Discard Date 11/16/07 24, 25 CBC With Electronic Diff 11/02/2007 White Blood Count 4.5 CUMM Low 4.8- 10.8 24 Red Cell Count 4.32 CUMM 4.2-5.4 24 Hemoglobin 13.7 g/dL 12.0-16.0 24 Hematocrit 39 % 35-47 24 Mean Corpuscular Volume 90 um3 79-97 24 Mean Corpuscular Hemoglob 32 pg High 27-31 24 Mean Corpuscular HGB Cone 35 g/dL 32-36 24 Redcell Distribution WDTH 13 % 10.5-15 24 Platelet Count 240 CUMM 150-450 24 Mean Platelet Volume 7.2 um3 Low 7.4-10.4 24 Gran % 62.7 % 38-83 24 Lymph % 28.5 % 20-45 24 Mononuclear % 7.5 % 1-9 24 Eosinophil % 1.0 % 0-6 24 Basophil % 0.3 % 0-2 24 Abs Lymphs 1.3 1.0-4.8 24 Abs Mononuclear 0.3 0-0.8 24 Absolute Neutrophil Count 2.8 1.5-7.7 24 Abs Eosinophils 0 0-0.6 24 Abs Basophils 0 0-0.2 24 1 SEE RESULT BELOW Name: PARIS AGUIAR : [address]: Aaron Fernando MD Acct: [id number] Unit: [id number] AGE: 60 Location: OR Re06/08/16 SEX: F Status: DEP [facility] SPEC: [id number] JESUS: 06/08/16- SUBM DR: Aaron Fernando MD REQ: [id number] RECD: 06/08/16 STATUS: SOUT _ ORDERED: LEVEL IV FINAL DIAGNOSIS Skin, right forearm, excision: -- Inverted follicular keratosis. -- All margins are clear. PRE-OPERATIVE DIAGNOSIS Localized swelling, mass and lump right upper limb GROSS DESCRIPTION The specimen is received in formalin labeled, Right Forearm Mass, and consists of a 4.6 x 1.9 cm mottled infante-pink hairbearing unoriented skin ellipse excised to a depth of 0.8 cm with a central 1.8 x 1.8 cm mottled erythematous slightly raised lesion with a central 0.4 x 0.1 cm friable defect. The specimen is inked, serially sectioned and entirely submitted in cassettes A through E to include defect in cassette C. Signed (signature on file) Dee Gray MD 1103 END OF REPORT * ML=Testing performed at Main Lab DEPARTMENT OF PATHOLOGY, [address] [place] [address] Hari Aguilar M.D. Director [facility] # [id number] [address] MAR AT [phone]. 3 Recommended INR for Patients on Oral Anticoagulants Prophylaxis 2.0 - 3.0 Treatment of thrombosis 2.0 - 3.0 Prevention of embolism 2.0 - 3.0 Prevention of embolism from prosthetic heart valves 2.5 - 3.5 4 DIAGNOSIS,TREATMENT,AND THERAPY MUST BE BASED ON THE INR VALUE ALONE. 5 Test Performed by: [facility] Dpt of Lab Med and Pathology [address] [place] [address] Technical Project Coordinator: Destin Izaguirre III, M.D. 6 This test is a direct mutation analysis of leukocyte genomic DNA by the [employer] Assay system ([employer], [employer], [place], [place]). 7 Analyte Specific Reagent This test was developed and its performance characteristics determined by Laboratory Medicine and Pathology, [facility]. This test has not been cleared or approved by the U.S. Food and Drug Administration. 8 This individual DOES have the factor V Leiden (R506Q) mutation on ONE allele, (heterozygous carrier). The factor V Leiden (R506Q) mutation is a risk factor for venous thromboembolism, recurrent miscarriage, complications of , and possible arterial thrombosis. The individual may have other genetic and environmental risk factors for thrombosis. Consider additional testing for hemostatic disorders associated with increased thrombosis risk, if indicated. Consider genetic consultation and counseling of potentially affected family members regarding laboratory testing. 9 Test Performed by: [facility] Dpt of Lab Med and Pathology [address] [place] [address] Technical Project Coordinator: Destin Izaguirre III, M.D. 10 -- REFERENCE VALUE -- <=13 (Fasting) Test Performed by: [facility] Dpt of Lab Med and Pathology [address] [place] [address] Technical Project Coordinator: Destin Izaguirre III, M.D. 11 Interpretation: Negative (<10.0 GPL) Test Performed by: [facility] Dpt of Lab Med and Pathology [address] [place] [address] Technical Project Coordinator: Destin Izaguirre III, M.D. 12 Interpretation: Negative (<10.0 MPL) Test Performed by: [facility] Dpt Lab Med and Pathology [address] [place] [address] Technical Project Coordinator: Destin Izaguirre III, M.D. 13 Interpretation: Negative (<10.0 APL) Test Performed by: [facility] Dpt Lab Med and Pathology [address] [place] [address] Technical Project Coordinator: Destin Izaguirre III, M.D. 14 Note: Decreased Protein C activity could reflect acquired conditions (e.g., liver disease, Vitamin K deficiency, oral anticoagulation, excess heparin in specimen, etc.) or a congenital deficiency state. Suggest clinical correlation. Test Performed by: [facility] Dpt of Lab Med and Pathology [address] [place] [address] Technical Project Coordinator: Destin Izaguirre III, M.D. 15 Decreased protein S activity could reflect acquired conditions (such as liver disease, vitamin K deficiency, oral anticoagulation effects, acute or chronic inflammation, or estrogen therapy, consumptive coagulopathy, etc.), or interfering conditions (such as elevated factor VIII), or a congenital deficiency state. Suggest clinical correlation. Assay of protein S antigen (free antigen, or free and total antigen) may be helpful for further evaluation of abnormal protein S activity assay results, or suspected spuriously normal or increased protein S activity assay results. Test Performed by: [facility] Dpt of Lab Med and Pathology [address] [place] [address] Technical Project Coordinator: Destin Izaguirre III, M.D. 16 Anion gap measurement may be of limited value in the presence of any alkalosis, especially in a combined acid base disorder. . 17 Note change in reference range as of 10/13/07. The change was based on recommendations from the [place] [employer]. 18 Please note change in reference range effective 07 . 19 A metabolite of Naproxen, O-desmethylnaproxen, has been shown to interfere with the Jendrassik-Kennedy method for measuring total bilirubin. Samples from patients who have taken Naproxen have shown spurious elevation in total bilirubin levels. 20 Because ethnic data is not always readily available, this report includes an eGFR for both -Americans and non- Americans. The National Kidney Disease Education Program (NKDEP) does not endorse the use of the MDRD equation for patients that are not between the ages of 18 and 70, are , have extremes of body size, muscle mass, or nutritional status, or are non- or non-. According to the National Kidney Foundation, irrespective of diagnosis, the stage of the disease is based on the level of kidney function: Stage Description GFR(mL/min/1.73 m(2)) 1 Kidney damage with normal or decreased GFR 90 2 Kidney damage with mild decrease in GFR 60-89 3 Moderate decrease in GFR 30-59 4 Severe decrease in GFR 15-29 5 Kidney failure <15 (or dialysis) 21 PLEASE NOTE NEW REFERENCE RANGES. 22 REVIEWED BY VANESSA SOLITARIO MD 23 ---- RUN DATE: 11/08/07 [facility] NMI LIVE PAGE 1 RUN TIME: 1431 Specimen Inquiry RUN USER: INTERFACE -- Name: OMAR AGUIARBUSTER Ngo Status: [facility] Re11/03/07 Age/Sex: 52/F Unit#: [id number] Location: SDS : [birth year] -- Specimen: [id number] SOUT Spec Date: 11/03/[address]: Shaan cerrato MD Spec Type: SURGICAL P Received: 11/03/07-1409 Copies to: SPECIMEN LAMINA T-9 HISTORY PRE-OP DIAGNOSIS: Chronic sciatica GROSS DESCRIPTION The specimen is received in formalin labelled Paris Aguiar, Lamina T9, and consists of multiple, infante-pink and harkins bone fragments measuring 1.7 x 1.4 x 0.6 cm. in aggregate. Button Clamper sections, one cassette after decal. DIAGNOSIS Thoracic spine, lamina T9, resection: Reactive bone tissue, degenerative ligament and bone marrow tissue. Signed Electronically by: HARI AGUILAR MD 11/08/07 1431 -- -- DEPARTMENT OF PATHOLOGY, [address] [place] [address] [facility] Permit #[id number] Hari Aguilar M.D. Director of Laboratories -- 24 DAY WITH OVERNIGHT 11/03/07 25 PREADMISSION TESTING SAMPLES FOR BLOOD BANK WILL BE HELD FOR 14 DAYS FROM THE DATE OF COLLECTION *IF* THE FOLLOWING CRITERIA ARE MET: 1) THE PATIENT HAS *NOT* BEEN IN THE LAST 3 MONTHS. 2) THE PATIENT HAS *NOT* BEEN TRANSFUSED IN THE LAST 3 MONTHS. PREADMISSION TESTING SAMPLES WILL *NOT* BE HELD FOR 14 DAYS FROM PATIENTS WHO IN THE LAST 3 MONTHS: 1) HAVE BEEN 2) HAVE BEEN TRANSFUSED THESE PATIENTS *MUST* BE COLLECTED WITHIN 3 DAYS OF THE SURGERY DATE. Procedures Date CPT Code Description Status 04/06/2017 07346 EKG Tracing & Interpretation Completed 11/12/2016 60980 Removal Devitalization Tissue Wound Less Than Equal 20 Completed Square CM 11/05/2016 90608 Removal Devitalization Tissue Wound Less Than Equal 20 Completed Square CM 10/29/2016 76693 Removal Devitalization Tissue Wound Less Than Equal 20 Completed Square CM 10/21/2016 54862 Removal Devitalization Tissue Wound Less Than Equal 20 Completed Square CM 10/16/2016 64047 Removal Devitalization Tissue Wound Less Than Equal 20 Completed Square CM 09/29/2016 68613 ECHO Transthoracic, Real-Time 2D With Doppler And Color Completed Flow 09/29/2016 92130 ECHO Transthoracic, Real-Time 2D With Doppler And Color Completed Flow 09/14/2016 83326 Stress Test Completed 09/14/2016 90959 Myocardial Perfusion Imaging Tomographic (Spect) Completed Multiple Studies 08/20/2016 56153 Holter Monitor Review (24 hr)dr marino & interp Completed only 08/18/2016 84206 ECG Monitor/Recording W/Visual Superimposition Scanning Completed 07/30/2016 66827 EKG Tracing & Interpretation Completed 06/08/2016 63247 Excise Benign Lesion > 4CM Trunk/Arm/Leg Completed 06/08/2016 87302 Repair Immediate Wound 2.6-7.5CM Completed Scalp/Axillae/Trunk/Extremities 07/30/2015 14064 ECHO Transthoracic, Real-Time 2D With Doppler And Color Completed Flow 02/07/2014 56581 ECHO Transthorasic Realtime 2D W Doppler & Color Completed Flow Hosp 12/12/2012 54948 EEG Recording Awake & Drowsy Completed 11/29/2012 92323 EKG, Interpretation Only Completed 11/28/2012 20089 ECHO Transthorasic Realtime 2D W Doppler & Color Completed Flow Hosp 11/07/2012 30624 EEG Recording Awake & Drowsy Completed 05/31/2012 46498 Color Flow Doppler/Interp & Reprt Completed 05/31/2012 44417 Pulse Wave/Continuous-Interp.RPT Completed 05/31/2012 39953 ECHO Transthorasic Realtime 2D W Doppler & Color Completed Flow Hosp 02/01/2008 Mammogram Completed 11/03/2007 92050 Insert Or Replace Spinal Neurostimulator Pulse Gen Or Completed Bid Writer 11/03/2007 11603 Laminectomy Neurostimulator Electrodes, Plate/Paddle Completed Epidural 11/03/2007 60569 Laminectomy Neurostimulator Electrodes, Plate/Paddle Completed Epidural Encounters Type Date Location Provider CPT E/M Dx Office Visit 05/31/2017 [facility]ology [facility] Sleep Rocio Bales, [address] J44.9 2:00p [facility] R06.83 F17.210 Z12.2 Office Visit 04/29/2017 2:30p [facility] [address] J44.9 [facility] R06.83 F17.210 Z12.2 Office Visit 04/06/2017 2:40p [facility] Chad Briones M.D. 56973 Z72.0 R00.2 I36.1 R94.31 Office Visit 11/19/2016 1:30p [facility] Ananth Harvey, [address] L03.116 At [facility] Anahi S81.802A Z72.0 D68.62 Office Visit 11/17/2016 1:20p [facility] Shannan Nieves, 02117 Z71.6 Infectious Diseases Anahi S81.802D Z23 I87.2 Office Visit 10/16/2016 12:30p [facility] Sophie Gore DNP, 14899 L03.116 At [facility] RN, BUILDING CERTIFIER-BC D68.2 T31.0 T24.032D S81.802D F17.210 Z86.14 Office Visit 10/14/2016 8:10a [facility] Shannan Amezquita 12157 L97.921 Infectious Diseases Anahi Nieves L03.116 M32.9 Office Visit 10/14/2016 12:51p [facility] Avi Montero, 37850 L97.929 Assoc,kevyn WEBER Hospitalists D68.51 M32.9 G89.29 Office Visit 10/13/2016 7:55a [facility] Shannan Amezquita 67582 L97.921 Infectious Nellie Nieves M.D. L03.116 M32.9 Office Visit 10/13/2016 12:50p [facility],kevyn Kaplan, N.P. 68069 L97.929 Hospitalists M32.9 D68.51 G89.29 Office Visit 10/12/2016 12:50p [facility],kevyn Kaplan, N.P. 84760 L97.929 Hospitalists D68.51 M32.9 G89.29 Office Visit 10/09/2016 2:00p [facility] GUS Sam 64047 L03.116 R00.2 I49.1 Office Visit 09/23/2016 12:45p [facility] Shannan Amezquita 27415 S80.812A Infectious Nellie Nieves M.D. S80.811A L03.116 G62.9 Office Visit 09/23/2016 3:45p [facility],kevyn Arroyo, 94431 L03.116 Hospitalyessenia Christian M32.9 I10 Office Visit 09/22/2016 3:45p [facility], Madelyn Arroyo, 77281 L03.116 Hospitalists Anahi M32.9 I10 Office Visit 09/22/2016 12:37p [facility] Arun Amezquita 46188 S80.812A Infectious Diseases Anahi Nieves L03.116 G62.9 Office Visit 09/21/2016 3:44p [facility], Madelyn Arroyo, 62207 L03.116 Hospitalyessenia Christian M32.9 I10 Office Visit 07/30/2016 2:00p [facility] Chad Briones M.D. 84123 R00.2 R07.9 F17.210 R01.1 I27.2 I73.9 I71.2 E78.00 I25.2 R94.31 Office Visit 07/01/2016 2:00p [facility], 68059 L92.9 [facility] Office Visit 05/27/2016 2:00p [facility], 42496 R22.31 [facility] Office Visit 04/10/2016 1:15p [facility], 79740 R22.31 [facility] Office Visit 06/20/2013 10:57a [facility] Shaan Mai, 91934 722.83 Of J[facility] Christian 996.2 Office Visit 02/10/2013 10:00a [facility] Bianca Lopez, 45534 799.59 Services Of Jordon Christian Office Visit 11/30/2012 11:25a [facility] Bijan Fallon, 45465 578.9 Assoc, Hospitalyessenia Chirstian 285.9 305.91 276.8 Office Visit 11/29/2012 11:25a [facility],pc Ananth Green 98146 578.9 Hospitalists Anahi Gross 285.9 305.91 276.8 Office Visit 11/28/2012 11:24a [facility] Ananth Green 99410 578.9 Hospitalists Anahi Gross 285.9 305.91 276.8 Office Visit 05/31/2012 2:49p [facility], Madelyn Arroyo, 86961 782.3 Hospitalists Anahi 785.2 285.9 305.51 Office Visit 04/20/2011 1:00p [facility] Shaan Mai, 07649 722.83 Of Manager Video M.D. Office Visit 12/22/2010 11:20a [facility] Shaan Mai, 12132 722.83 Of Manager Video M.D. Office Visit 08/18/2010 2:20p [facility] Shaan Mai, 16444 722.83 Of Manager Video M.D. Office Visit 04/21/2010 1:40p [facility] Shaan Mai, 08798 722.83 Of Manager Video M.D. 722.10 Office Visit 03/21/2010 1:20p [facility] Shaan Mai, 11395 722.83 Of Manager Video M.D. Office Visit 10/29/2009 11:40a [facility] Shaan Mai, 82338 722.83 Of Manager Video M.D. Office Visit 07/26/2009 11:00a [facility] Shaan Mai, 81105 722.83 Of Manager Video M.D. Office Visit 06/10/2009 1:00p [facility] Shaan Mai, 40880 722.83 Of Manager Video M.D. Office Visit 02/04/2009 1:00p [facility] Shaan Mai, 81747 722.83 Of Manager Video M.D. Office Visit 12/24/2008 9:40a [facility] Shaan Mai, 50337 722.83 Of Manager Video M.D. 724.3 Office Visit 11/16/2008 11:00a [facility] Shaan Mai, 08992 722.83 Of Manager Video M.D. Office Visit 06/26/2008 3:20p [facility] Shaan Mai, 53816 722.83 Of Manager Video M.D. Office Visit 04/17/2008 2:40p [facility] Shaan Mai 01427 722.83 Of Manager Video M.D. Office Visit 03/06/2008 3:40p [facility] Shaan Mai 26199 722.83 Of Manager Video M.D. 724.3 Office Visit 01/02/2008 4:00p [facility] Shaan Mai, 85368 724.3 Of Manager Video M.D. Office Visit 10/28/2007 10:40a [facility] Shaan Mai, 41873 724.3 Of Manager Video M.D. Office Visit 09/26/2007 11:30a [facility] Shaan Mai, 28004 721.3 Of Manager Video M.D. Office Visit 08/12/2007 3:30p [facility] Shaan Mai, 55434 721.3 Of Manager Video M.D. Office Visit 07/05/2007 3:30p [facility] Shaan Mai 14956 721.3 Of Manager Video M.D. Office Visit 05/23/2007 3:30p [facility] Shaan Mai 73808 721.3 Of Manager Video M.D. Office Visit 03/11/2007 3:30p [facility] Shaan Mai 39174 721.3 Of Manager Video M.D. Office Visit 02/08/2007 3:15p [facility] Shaan Mai, 69771 721.3 Of Manager Video M.D. Office Visit 12/28/2006 4:00p [facility] Shaan Mai, 92281 721.3 Of Manager Video M.D. Office Visit 11/30/2006 3:30p [facility] Shaan Mai, 48819 721.3 Of Manager Video M.D. 724.3 Office Visit 10/19/2006 11:00a [facility] Shaan Mai 97491 722.83 Of Manager Video M.D. Office Visit 09/07/2006 1:00p [facility] Shaan Mai 34867 722.83 Of Manager Video M.D. Office Visit 07/27/2006 3:30p [facility] Shaan Mai 20989 722.83 Of Manager Video M.D. Office Visit 06/15/2006 4:00p [facility] Shaan Mai 35774 722.83 Of Manager Video M.D. Office Visit 05/03/2006 4:00p [facility] Shaan Mai 14010 722.83 Of Jordon Christian Office Visit 04/05/2006 4:00p [facility] Shaan Mai, 39934 722.83 Of Jordon Chritsian Plan of Care Future Appointment(s):09/01/2017 10:45 am - Idalia Weeks MD at [facility]05/31/2017 - Rocio Bales N.P.J44.9 Chronic obstructive pulmonary disease, unspecifiedNew Medication:Bevespi Aerosphere 9- 4.8 mcg/ActRecommendations:Stop Tudorza; Start Bevespi 2 puffs 2x gskgtB58.83 SnoringNew Orders:Sleep StudyRecommendations:Please schedule home sleep study for patient.F17.210 Nicotine dependence, cigarettes, [id number] Encntr screen for malignant neoplasm of respiratory organsNew Xrays:CT Lung Screening- Low DoseFollow up:3 mo OV w/ CT chest prior (order written)
[2017-06-26 14:47] VITALS: BP 106/66
--- NOTE | 2017-06-26 15:06 | UC ---
Skin Complaint HPI - HPI Summary HPI Summary: 3 weeks of worsening left lower leg swelling with open areas that are weeping tender to touch pulses are present but weak patient reports having chronic peripheral vascular changes in her legs but nothing like this. Left leg is significantly larger than her right she is on Coumadin she's also on prednisone chronically - History of Current Complaint Chief Complaint: UCLowerExtremity Time Seen by Provider: 06/26/17 14:53 Stated Complaint: SKIN COMPLAINT Hx Obtained From: Patient ?: No Onset/Duration: Gradual Onset, Lasting Weeks - 3, Still Present Timing: Constant Onset Severity: Mild Current Severity: Moderate Pain Intensity: 2 Pain Scale Used: 0-10 Numeric Location: Discrete - left lower leg Character: Swelling, Pain, Redness Aggravating Factor(s): Nothing Alleviating Factor(s): Nothing Associated Signs & Symptoms: Positive: Drainage - Allergy/Home Medications Allergies/Adverse Reactions: Allergies Allergy/AdvReac Type Severity Reaction Status Date / Time Adhesive Tape Allergy Mild Rash Verified 06/26/17 14:34 aspirin Allergy on Verified 06/26/17 14:34 Coumadin, Hx of GI bleed codeine Allergy makes pt Verified 06/26/17 14:34 jittery Home Medications: Home Medications DULoxetine DR CAP* [Cymbalta CAP*] 60 mg PO DAILY 06/26/17 [History Confirmed ] Review of Systems Constitutional: Negative Skin: Other - left red warm swollen tender draining left lower leg Eyes: Negative ENT: Negative Respiratory: Negative Cardiovascular: Negative Gastrointestinal: Negative Genitourinary: Negative Motor: Negative Neurovascular: Negative Musculoskeletal: Myalgia - left lower leg Neurological: Negative Psychological: Negative Is Patient Immunocompromised?: No All Other Systems Reviewed And Are Negative: Yes PMH/Surg Hx/FS Hx/Imm Hx Previously Healthy: No - Lupus Cardiovascular History: Hypertension Other History Of: Anticoagulant Therapy - coumadin - Surgical History Surgical History: Yes Surgery Procedure, Year, and Place: L4-5 diskectomy;hysterectomy;dorsal column stimulator; appendectomy;, polypectomy GI; resection damaged tissue right forearm - Family History Known Family History: Negative: Hypertension, Diabetes, Blood Disorder - Social History Occupation: Disabled Lives: With Family Alcohol Use: Occasionally Substance Use Type: None Substance Use Comment - Amount & Last Used: oxycodone Smoking Status (MU): Former Smoker Type: eCigarettes Amount Used/How Often: 1 PPD -1.5 ppd X ON AND OFF 43 YEARS Length of Time of Smoking/Using Tobacco: a few a day with ecigs Have You Smoked in the Last Year: Yes When Did the Patient Quit Smoking/Using Tobacco: 05/09/17 Household Exposure Type: Cigarettes - Immunization History Most Recent Influenza Vaccination: NOV 2016 Most Recent Tetanus Shot: unknown Most Recent Pneumonia Vaccination: 2011 Physical Exam Triage Information Reviewed: Yes Appearance: Well-Appearing, Pain Distress, Thin Vital Signs: Initial Vital Signs Temp 99.5 F 06/26/17 14:31 Pulse 66 06/26/17 14:31 Resp 19 06/26/17 14:31 BP 106/66 06/26/17 14:31 Pulse Ox 94 06/26/17 14:31 Vital Signs Reviewed: Yes Eye Exam: Normal Eyes: Positive: Conjunctiva Clear ENT Exam: Normal ENT: Positive: Normal ENT inspection, Hearing grossly normal, Pharynx normal. Negative: Nasal congestion, Trismus, Muffled voice, Hoarse voice Dental Exam: Normal Neck exam: Normal Neck: Positive: Supple, Nontender, No Lymphadenopathy Respiratory Exam: Normal Respiratory: Positive: Chest non-tender, Lungs clear, Normal breath sounds, No respiratory distress, No accessory muscle use Cardiovascular Exam: Normal Cardiovascular: Positive: RRR, No Murmur, Pulses Normal, Brisk Capillary Refill Abdominal Exam: Normal Abdomen Description: Positive: Nontender, No Organomegaly, Soft. Negative: CVA Tenderness (R), CVA Tenderness (L) Musculoskeletal Exam: Other Musculoskeletal: Positive: Strength Intact, ROM Intact, Edema @ - left lower leg Neurological Exam: Normal Neurological: Positive: Alert, Muscle Tone Normal Psychological Exam: Normal Psychological: Positive: Normal Response To Family, Age Appropriate Behavior Skin Exam: Other Skin: Positive: Other - skin breakdown left lower leg with erythema, edema and weeping Course/Dx - Course Course Of Treatment: has not has IRN checked recently, plan to go to [facility] for further evaluation and treatment - Diagnoses Provider Diagnoses: cellulitis, PVD, left lower leg Discharge - Sign-Out/Discharge Documenting (check all that apply): Discharge/Admit/Transfer - Discharge Plan Condition: Fair Disposition: HOME Patient Education Materials: Cellulitis (ED) Referrals: Ryan Mar MD [Primary Care Provider] - Additional Instructions: Please go directly to the emergency department at [facility] for additional care and treatment of left lower leg - Billing Disposition and Condition Condition: FAIR Disposition: HOME
== END 2017-06-26 15:15 | disposition home or self-care (01) ==
LOC: UCCORT 13:08
DX: L03.116 Cellulitis of left lower limb (principal); I73.9 Peripheral vascular disease, unspecified; Z79.01 Long term (current) use of anticoagulants; Z88.6 Allergy status to analgesic agent; Z88.5 Allergy status to narcotic agent; Z87.891 Personal history of nicotine dependence
CPT/HCPCS: 99212; G0463

== ENCOUNTER 2017-06-26 17:13 | Emergency (ER) | payer OTHER ==
[2017-06-26 18:09] LABS: ABS Basophils 0.1 10^3/ul (0-0.2); ABS Eosinophils 0 10^3/ul (0-0.6); ABS Lymphocytes 1.4 10^3/ul (1.0-4.8); ABS Monocytes 0.5 10^3/ul (0-0.8); ABS Neutrophils 2.8 10^3/ul (1.5-7.7); ABS Nucleated RBC 0 10^3/ul; Hematocrit 39 % (35-47); Hemoglobin 13.4 g/dl (12.0-16.0); Lymphocyte % 29.8 % (25-47); Mean Corpuscular HGB Conc 34 g/dl (31-36); Mean Corpuscular Hemoglobin 32 pg (27-31); Mean Corpuscular Volume 92 fL (80-97); Mean Platelet Volume 7.9 um3 (7.4-10.4); Nucleated Red Blood Cells % 0; Platelet Count 258 10^3/ul (150-450); Red Blood Count 4.25 10^6/ul (4.0-5.4); Red Cell Distribution Width 13 % (10.5-15); White Blood Count 4.8 10^3/ul (3.5-10.8)
[2017-06-26 18:26] LABS: EGFR Non-African American 48.6 (>60)
--- NOTE | 2017-06-26 18:40 | RAD ---
INDICATION: Cellulitis, pulmonary nodule, lupus. COMPARISON: Comparison is made with a prior chest x-ray study from October 05, 2015. TECHNIQUE: AP and lateral views of the chest were obtained. FINDINGS: The heart is within normal limits in size. Mediastinal and hilar contours appear within normal limits. The lungs are hyperinflated and clear. No pleural effusion is seen. Note is made of dorsal column stimulator leads. IMPRESSION: FINDINGS CONSISTENT WITH COPD, NO EVIDENCE FOR ACUTE FINDING.
--- NOTE | 2017-06-26 18:42 | RAD ---
INDICATION: Redness swelling left lower extremity. COMPARISON: Comparison is made with a prior study from September 22, 2016. TECHNIQUE: Multiple real-time, color flow and Doppler tracings of the left lower extremity were obtained. FINDINGS: The common femoral, femoral, profunda femoral and popliteal veins all demonstrate normal compressibility, augmentation with compression and phasic response with respiration. The posterior tibial and peroneal veins demonstrate normal compressibility and augmentation with compression. IMPRESSION: NO EVIDENCE FOR DEEP VENOUS THROMBOSIS.
[2017-06-26] MEDS ORDERED: ceFAZolin 1 GM in Dextrose (*) 1 GM/50 ML BAG IVPB ONE (19:23)
[2017-06-26 20:06] VITALS: BP 108/65
--- NOTE | 2017-06-26 23:51 | ED ---
Eren Guerrero Tecjoon, scribed for Anushka Valderrama MD on 06/26/17 at 1809 . Skin Complaint - HPI Summary HPI Summary: This patient is a 61 year old female presenting to [facility] accompanied by best friend (Consuelo) with a chief complaint of redness and swelling in legs since approx. 3 weeks ago. The redness is present in both legs, but the patients left leg is worse and hot to the touch. Patient thinks that it may be left leg cellulitis. Patient was referred to ED by [facility]. Patients left leg has open lesions on her legs that are constantly weeping and have been for the past 3 weeks. The pain is rated 3/10 in severity. Symptoms aggravated by nothing. Symptoms alleviated by nothing. Patient denies chest pain, SOB, fever. Patient has been to the wound clinic before. Pt has hx of peripheral vascular disease, cellulitis,DVT, PE, lupus and Factor V Leiden. Pt is on warfarin, and states her INR is therapeutic. - History of Current Complaint Chief Complaint: EDRashSkinAbscess Time Seen by Provider: 06/26/17 17:44 Stated Complaint: LEG RASH-CC TRANSFER Hx Obtained From: Patient, Family/Powder Shoveler - friend, Consuelo Onset/Duration: Started Weeks Ago - 3, Still Present, Worse Since - today Timing: Constant Onset Severity: Moderate Current Severity: Moderate Pain Intensity: 3 Pain Scale Used: 0-10 Numeric Skin Location: Leg - left Character: Swelling, Redness Aggravating Symptom(s): Nothing Alleviating Symptom(s): Nothing Associated Signs & Symptoms: Negative - chest pain, SOB, fever Similar Episode/Dx as: cellulitis - Additional Pertinent History Primary Care Physician: ALBER - Allergy/Home Medications Allergies/Adverse Reactions: Allergies Allergy/AdvReac Type Severity Reaction Status Date / Time Adhesive Tape Allergy Mild Rash Verified 06/26/17 14:34 aspirin Allergy on Verified 06/26/17 14:34 Coumadin, Hx of GI bleed codeine Allergy makes pt Verified 06/26/17 14:34 jittery Home Medications: Home Medications Diazepam TAB(*) [Valium TAB(*)] 5 mg PO TID PRN 06/26/17 [History Confirmed 07/09] Morphine TAB (NF) 15 mg PO .Q4-6H PRN 06/26/17 [History Confirmed 06/26/17] Morphine TAB Extended Rel(*) [Ms Contin(*)] 15 mg PO Q8H 06/26/17 [History Confirmed 06/26/17] Morphine TAB Extended Rel(*) [Ms Contin(*)] 60 mg PO Q8H 06/26/17 [History Confirmed 06/26/17] Warfarin TAB(*) [Coumadin TAB(*)] 4 mg PO DAILY 06/26/17 [History Confirmed 07/09] PMH/Surg Hx/FS Hx/Imm Hx Previously Healthy: No Endocrine/Hematology History: Reports: Hx Anticoagulant Therapy - coumadin, Hx Blood Disorders - Leiden factor V, Hx Systemic Lupus Erythematosus, Hx Anemia Denies: Hx Diabetes, Hx Thyroid Disease Cardiovascular History: Reports: Hx Embolism - DVT and PE 2005, Hx Hypercholesterolemia, Hx Peripheral Vascular Disease Denies: Hx Hypertension, Hx Pacemaker/ICD Respiratory History: Reports: Hx Asthma, Hx Chronic Obstructive Pulmonary Disease (COPD), Hx Pulmonary Embolism - 2005, Hx Seasonal Allergies GI History: Reports: Hx Gastrointestinal Bleed, Hx Obstructive Bowel, Hx Ulcer History: Denies: Hx Renal Disease Musculoskeletal History: Reports: Hx Back Problems, Other Musculoskeletal History - STENOSIS/spinal stimulator, discectomy Comment Only: Hx Arthritis - lupus Sensory History: Reports: Hx Contacts or Glasses - GLASSES, Hx Hearing Problem Denies: Hx Hearing Aid Opthamlomology History: Reports: Hx Contacts or Glasses - GLASSES Neurological History: Reports: Hx Headaches Denies: Hx Dementia, Hx Seizures Psychiatric History: Reports: Hx Anxiety - ON MEDICATION FOR, Hx Depression - ON MEDICATION FOR Denies: Hx Substance Abuse - Cancer History Hx Chemotherapy: No Hx Radiation Therapy: No - Surgical History Surgery Procedure, Year, and Place: L4-5 diskectomy;hysterectomy;dorsal column stimulator; appendectomy;, polypectomy GI; resection damaged tissue right forearm Hx Anesthesia Reactions: No - Immunization History Date of Tetanus Vaccine: Unknown Infectious Disease History: No Infectious Disease History: Reports: Hx Hepatitis - hepatitis b, History Other Infectious Disease - Herpes Denies: Hx Human Immunodeficiency Virus (HIV), Traveled Outside the [place] in Last 30 Days - Family History Known Family History: Negative: Hypertension, Diabetes, Blood Disorder - Social History Lives: Alone Alcohol Use: Occasionally Hx Substance Use: No Substance Use Type: Reports: None Substance Use Comment - Amount & Last Used: oxycodone Hx Tobacco Use: Yes Smoking Status (MU): Former Smoker Type: eCigarettes Amount Used/How Often: 1 PPD -1.5 ppd X ON AND OFF 43 YEARS Length of Time of Smoking/Using Tobacco: a few a day with ecigs Have You Smoked in the Last Year: Yes Review of Systems Negative: Fever Negative: Chest Pain Negative: Shortness Of Breath Gastrointestinal: Negative Positive: Arthralgia Positive: Other - redness and swelling in leg, open weeping lesions on left leg Neurological: Negative Psychological: Normal All Other Systems Reviewed And Are Negative: Yes Physical Exam - Summary Physical Exam Summary: Appearance: chronically ill-appearing, moderate pain distress, Well-nourished Skin: diffuse redness bilat lower extremities (as below); Left distal anterior tibia, 3x0.5cm open weeping lesions with clear discharge. Head: Normal Head/Face inspection Eyes: Conjunctiva clear ENT: Normal inspection Neck: Supple, no nodes, no JVD. Respiratory: Lungs clear, Normal breath sounds, no respiratory distress Cardio: RRR, No murmur, capillary refill intact, pulses in lower extremities, especially Posterior tibial and dorsalis pedis pulses, are intact, but diminished. Abdomen: soft, nontender Bowel sounds: present Extremities: Swelling bilat lower extremities, left greater than right. Diffuse confluent bright redness from tips of toes to proximal third of the tibia and it s circumferential. Diffuse redness on right leg and scab lesion on right great toe. Redness goes shelter up on right leg (size of redness is less on the right than left) Musculoskeletal: Strength Intact/ ROM intact. No calf tenderness. Psychological: Normal Neuro: Alert, muscle tone normal, no focal deficit Triage Information Reviewed: Yes Vital Signs On Initial Exam: Initial Vitals Temp Pulse Resp BP Pulse Ox 98.8 F 71 14 116/68 94 06/26/17 17:15 06/26/17 17:15 06/26/17 17:15 06/26/17 17:15 06/26/17 17:15 Vital Signs Reviewed: Yes Diagnostics - Vital Signs Vital Signs Temp Pulse Resp BP Pulse Ox 06/26/17 17:15 98.8 F 71 14 116/68 94 - Laboratory Result Diagrams: 06/26/17 17:59 06/26/17 17:59 Lab Statement: Any lab studies that have been ordered have been reviewed, and results considered in the medical decision making process. - Radiology CXR Xray Interpretation: No Acute Changes - CXR reveals, per radiologist, IMPRESSION : FINDINGS CONSISTENT WITH COPD, NO EVIDENCE FOR ACUTE FINDING. ED physician has reviewed this radiology report. Radiology Interpretation Completed By: Radiologist - Additional Comments Diagnostic Additional Comments: Venous Doppler Study reveals, per radiologist, IMPRESSION: NO EVIDENCE FOR DEEP VENOUS THROMBOSIS. ED physician has reviewed this radiology report. Re-Evaluation - Re-Evaluation First Eval Re-Evaluation Time: 19:29 Change: Improved Comment: Patient is feeling much better. We discussed lab and imaging results with patients and discussed discharge. Course/Dx - Course Course Of Treatment: This patient is a 61 year old female presenting to [facility] accompanied by best friend (Consuelo) with a chief complaint of redness and swelling in legs since approx. 3 weeks ago. Patient was referred to ED by [facility]. Patients left leg has open lesions that are constantly weeping and have been for the past 3 weeks. Venous Doppler Study reveals, per radiologist, IMPRESSION : NO EVIDENCE FOR DEEP VENOUS THROMBOSIS. ED physician has reviewed this radiology report. CXR reveals, per radiologist, IMPRESSION: FINDINGS CONSISTENT WITH COPD, NO EVIDENCE FOR ACUTE FINDING. ED physician has reviewed this radiology report. Of note, there is no mention of a lung nodule that pt was told she had. Bloodwork Obtained. In the ED course the patient was given cefazolin 1 gm IV. With pt's normal wbc count and therapeutic INR and no signs of sepsis, have given the first dose of antibiotics IV, but will RX the remainder of treatment as oral cephalexin. Patient will be discharged with a dx of cellulitis and a prescription for Keflex. Patient is advised to follow up with Dr. Mar in 2-3 days. The patient is agreeable with this plan. - Diagnoses Provider Diagnoses: Cellulitis of left lower extremity Discharge - Sign-Out/Discharge Documenting (check all that apply): Discharge/Admit/Transfer - home - Discharge Plan Condition: Stable Disposition: HOME Prescriptions: Cephalexin CAP* [Keflex 500 CAP*] 500 mg PO QID #40 cap Patient Education Materials: Cellulitis (ED) Referrals: Ryan Mar MD [Primary Care Provider] - 2 Days Additional Instructions: We have given you a copy of your labs and chest xray. There was no blood clot in your leg. We gave you one gram of cefazolin IV in the ER. We are trying outpatient treatment for the cellulitis, but you will need to see Dr. Mar on Wednesday or Wednesday in follow up definitely. Return to the ER if you have fever or new or worsening symptoms. - Billing Disposition and Condition Condition: STABLE Disposition: HOME The documentation as recorded by the Eren zhang Tecjoon accurately reflects the service I personally performed and the decisions made by me, Anushka Valderrama MD.
== END 2017-06-26 20:06 | disposition home or self-care (01) ==
LOC: ED 17:13
DX: L03.116 Cellulitis of left lower limb (principal); Z87.891 Personal history of nicotine dependence; Z88.6 Allergy status to analgesic agent; Z88.5 Allergy status to narcotic agent
CPT/HCPCS: 36415; 71046; 80053; 83605; 83735; 85025; 85379; 85610; 85652; 86140; 87040; 87070; 87205; 99283; J0690

== ENCOUNTER 2018-04-14 16:47 | Inpatient (IN) | payer OTHER ==
[2018-04-14] MEDS ORDERED: Senna TAB PO PRN (17:39)
[2018-04-14] MEDS ORDERED: Prochlorperazine TAB* 10 MG PO PRN (17:39)
[2018-04-14] MEDS ORDERED: Ondansetron TAB* 4 MG PO PRN (17:39)
[2018-04-14] MEDS ORDERED: Baclofen TAB* 10 MG PO PRN (17:39)
[2018-04-14] MEDS ORDERED: Acetaminophen TAB* 325 MG PO PRN (17:42)
[2018-04-14] MEDS ORDERED: Morphine TAB Extended Release (*) 30 MG TAB.ER PO SCH (18:00)
[2018-04-14] MEDS: Morphine ORAL.SOLN 10 mg* 2 MG/ML UDC 5 ml PO PRN (20:06)
[2018-04-14] MEDS: methylPREDNISolone 125 MG* 2 ML VIAL IV SCH (20:08)
[2018-04-14] MEDS: DULoxetine DR CAP* 60 MG CAP.DR PO SCH (20:08)
[2018-04-14] MEDS: NS 0.9% 1000 ML** 1,000 ML IV SCH (20:11)
[2018-04-14] MEDS: Morphine TAB Extended Release (*) 30 MG TAB.ER PO SCH (21:27)
[2018-04-14] MEDS: Docusate CAP* 100 MG PO SCH (21:27)
[2018-04-14] MEDS: Potassium Chlor TAB* 20 MEQ TAB.ER PO SCH (21:27)
[2018-04-14] MEDS: Pravastatin (NF) 10 MG TAB PO SCH (21:40)
[2018-04-14] MEDS: traZODone TAB* 100 MG PO SCH (21:40)
[2018-04-14] MEDS: ARIPiprazole TAB* 5 MG PO SCH (21:42)
[2018-04-14] MEDS ORDERED: Warfarin TAB(*) 4 MG PO ONE (22:30)
[2018-04-14] MEDS: GLYCOPYRROLATE INH SCH (22:33)
[2018-04-14] MEDS: FORMOTEROL FUM INH SCH (22:33)
[2018-04-15 04:39] LABS: Hematocrit 27 % (35-47); Hemoglobin 9.1 g/dl (12.0-16.0); Mean Corpuscular HGB Conc 34 g/dl (31-36); Mean Corpuscular Hemoglobin 32 pg (27-31); Mean Corpuscular Volume 94 fL (80-97); Mean Platelet Volume 7.9 fL (7.4-10.4); Platelet Count 61 10^3/ul (150-450); Red Blood Count 2.82 10^6/ul (4.00-5.40); Red Cell Distribution Width 15 % (10.5-15); White Blood Count 2.8 10^3/ul (3.5-10.8)
[2018-04-15 04:49] LABS: Calcium 8.2 mg/dL (8.6-10.3); Potassium 4.2 mmol/L (3.5-5.0); Total Bilirubin 0.6 mg/dL (0.2-1.0)
[2018-04-15 04:55] LABS: Albumin/Globulin Ratio 1.3 (1-3); BUN/Creatinine Ratio 19.7 (8-20); EGFR African American 101.3 (>60); EGFR Non-African American 83.7 (>60); Globulin 2.3 g/dL (2-4); Total Protein 5.3 g/dL (6.4-8.9)
[2018-04-15 05:00] LABS: ABS Basophils 0 10^3/ul (0-0.2); ABS Eosinophils 0 10^3/ul (0-0.6); ABS Lymphocytes 0.2 10^3/ul (1.0-4.8); ABS Monocytes 0.2 10^3/ul (0-0.8); ABS Neutrophils 2.4 10^3/ul (1.5-7.7); ABS Nucleated RBC 0 10^3/ul; Eosinophil % 0 %; Lymphocyte % 8.5 %; Nucleated Red Blood Cells % 0
[2018-04-15] MEDS ORDERED: NS 0.9% 1000 ML** 1,000 ML IV SCH (05:50)
[2018-04-15] MEDS: Morphine TAB Extended Release (*) 30 MG TAB.ER PO SCH ×3 (06:24→22:10)
[2018-04-15] MEDS ORDERED: Cefepime* 2 GM in Dextrose 50mL Q12H (Duplex) IV ONE (06:31)
[2018-04-15] MEDS: Folic Acid TAB* 1 MG PO SCH (07:40)
[2018-04-15] MEDS: methylPREDNISolone 125 MG* 2 ML VIAL IV SCH (07:40)
[2018-04-15] MEDS: Docusate CAP* 100 MG PO SCH ×2 (07:41→21:19)
[2018-04-15] MEDS: Famotidine TAB* 20 MG PO SCH (07:41)
[2018-04-15] MEDS: Potassium Chlor TAB* 20 MEQ TAB.ER PO SCH ×2 (07:41→21:20)
[2018-04-15] MEDS: FORMOTEROL FUM INH SCH ×2 (07:48→21:20)
[2018-04-15] MEDS: GLYCOPYRROLATE INH SCH ×2 (07:48→21:20)
[2018-04-15] MEDS: Hydroxychloroquine TAB* 200 MG PO SCH (08:51)
[2018-04-15] MEDS: NS 0.9% 1000 ML** 1,000 ML IV SCH ×2 (10:14→20:08)
[2018-04-15 10:24] LABS: INR 2.2 (0.77-1.02)
[2018-04-15] MEDS: DULoxetine DR CAP* 60 MG CAP.DR PO SCH (16:07)
[2018-04-15] MEDS ORDERED: Warfarin TAB(*) 4 MG PO ONE (17:00)
[2018-04-15] MEDS: Cefepime 2 GM in Dextrose(*) 2 GM/50 ML BAG IV SCH (20:00)
[2018-04-15] MEDS: ARIPiprazole TAB* 5 MG PO SCH (21:19)
[2018-04-15] MEDS: Pravastatin (NF) 10 MG TAB PO SCH (21:20)
[2018-04-15] MEDS: traZODone TAB* 100 MG PO SCH (21:20)
[2018-04-16 04:23] LABS: ABS Basophils 0 10^3/ul (0-0.2); ABS Eosinophils 0 10^3/ul (0-0.6); ABS Lymphocytes 0.4 10^3/ul (1.0-4.8); ABS Monocytes 0.2 10^3/ul (0-0.8); ABS Neutrophils 3.6 10^3/ul (1.5-7.7); ABS Nucleated RBC 0 10^3/ul; Eosinophil % 0.1 %; Hematocrit 24 % (35-47); Hemoglobin 8.2 g/dl (12.0-16.0); Lymphocyte % 8.8 %; Mean Corpuscular HGB Conc 34 g/dl (31-36); Mean Corpuscular Hemoglobin 33 pg (27-31); Mean Corpuscular Volume 95 fL (80-97); Nucleated Red Blood Cells % 0; Platelet Count 53 10^3/ul (150-450); Red Blood Count 2.49 10^6/ul (4.00-5.40); Red Cell Distribution Width 16 % (10.5-15); White Blood Count 4.1 10^3/ul (3.5-10.8)
[2018-04-16 04:26] LABS: INR 4.07 (0.77-1.02)
[2018-04-16] MEDS: Morphine TAB Extended Release (*) 30 MG TAB.ER PO SCH ×3 (06:04→22:38)
[2018-04-16] MEDS: NS 0.9% 1000 ML** 1,000 ML IV SCH (06:50)
[2018-04-16] MEDS: methylPREDNISolone 125 MG* 2 ML VIAL IV SCH (07:54)
[2018-04-16] MEDS: Cefepime 2 GM in Dextrose(*) 2 GM/50 ML BAG IV SCH ×2 (07:54→19:57)
[2018-04-16] MEDS: Docusate CAP* 100 MG PO SCH ×2 (07:55→22:38)
[2018-04-16] MEDS: Potassium Chlor TAB* 20 MEQ TAB.ER PO SCH ×2 (07:55→22:38)
[2018-04-16] MEDS: Folic Acid TAB* 1 MG PO SCH (07:55)
[2018-04-16] MEDS: Hydroxychloroquine TAB* 200 MG PO SCH (07:55)
[2018-04-16] MEDS: Famotidine TAB* 20 MG PO SCH (07:55)
[2018-04-16] MEDS: FORMOTEROL FUM INH SCH ×2 (08:50→22:43)
[2018-04-16] MEDS: GLYCOPYRROLATE INH SCH ×2 (08:50→22:43)
--- NOTE | 2018-04-16 10:39 | PN ---
Progress Note - Progress Note Date of Service: 04/16/18 SOAP: Subjective: [] Feeling better than . Getting rest. Still very short of breath. Was able to walk to the bathroom and back but then panting. No more fevers. Blood pressures been low she has not been dizzy. Coughing up brown and blood tinged sputum. She is urinating frequently, filling up hat. She reports some difficulty with memory, blurry vision at times. Chronic pain is stable. Acetaminophen (Tylenol Tab*) 650 mg PO Q4H PRN PRN Reason: FEVER Aripiprazole (Abilify Tab*) 5 mg PO BEDTIME [facility] Last Admin: 04/15/18 21:19 Dose: 5 mg Baclofen (Lioresal Tab*) 20 mg PO DAILY PRN PRN Reason: SPASMS Diazepam (Valium Tab(*)) 5 mg PO TID PRN PRN Reason: ANXIETY Docusate Sodium (Colace Cap*) 100 mg PO BID [facility] Last Admin: 04/16/18 07:55 Dose: 100 mg Duloxetine HCl (Cymbalta Cap*) 60 mg PO QPM [facility] Last Admin: 04/15/18 16:07 Dose: 60 mg Famotidine (Pepcid Tab*) 40 mg PO DAILY [facility] Last Admin: 04/16/18 07:55 Dose: 40 mg Folic Acid (Folvite Tab*) 1 mg PO DAILY [facility] Last Admin: 04/16/18 07:55 Dose: 1 mg Heparin Sodium (Porcine) (Heparin Flush Port (Ivad)) 5 ml FLUSH DAILY [facility]; Protocol Last Admin: 04/16/18 08:51 Dose: Not Given Hydroxychloroquine Sulfate (Plaquenil Tab*) 200 mg PO DAILY WITH MEAL [facility] Last Admin: 04/16/18 07:55 Dose: 200 mg Sodium Chloride (Ns 0.9% 1000 Ml) 1,000 mls @ 100 mls/hr IV PER RATE [facility] Last Admin: 04/16/18 06:50 Dose: 100 mls/hr Sodium Chloride (Ns 0.9% 1000 Ml) 1,000 mls @ 250 mls/hr IV PER RATE [facility] Last Admin: 04/15/18 06:20 Dose: 250 mls/hr Cefepime HCl (Maxipime 2 Gm In Dextrose Duplex (*)) 2 gm in 50 mls @ 100 mls/ hr IV Q12H [facility] Last Admin: 04/16/18 07:54 Dose: 100 mls/hr Methylprednisolone Sodium Succinate (Solu-Medrol 125mg *) 125 mg IV DAILY [facility] Last Admin: 04/16/18 07:54 Dose: 125 mg Morphine Sulfate (Morphine Oral.Soln 10 Mg*) 15 mg PO Q4H PRN PRN Reason: PAIN Last Admin: 04/14/18 20:06 Dose: 15 mg Morphine Sulfate (Ms Contin(*)) 90 mg PO Q8HR [facility] Last Admin: 04/16/18 06:04 Dose: 90 mg Non-Formulary Medication (Glycopyrrolate/Formoterol Fum [Bevespi Aerosphere Inhaler]) 1 puff INH BID [facility] Last Admin: 04/16/18 08:50 Dose: Not Given Ondansetron HCl (Zofran Tab*) 4 mg PO Q4HR PRN PRN Reason: NAUSEA Pharmacy Profile Note (Coumadin Per Pharmacy*) 0 note FOLLOW UP .PER PHARMACY PROTOC [facility]; Protocol Pharmacy Profile Note (Coumadin Daily Reminder*) 1 note FOLLOW UP 1700 [facility] Last Admin: 04/15/18 16:07 Dose: 1 note Potassium Chloride (Klor Con Er Tab*) 20 meq PO BID [facility] Last Admin: 04/16/18 07:55 Dose: 20 meq Pravastatin Sodium (Pravachol (Nf)) 10 mg PO BEDTIME [facility] Last Admin: 04/15/18 21:20 Dose: Not Given Prochlorperazine (Compazine Tab*) 10 mg PO Q6HR PRN PRN Reason: CONSTIPATION Senna (Senokot Tab*) 1 tab PO DAILY PRN PRN Reason: CONSTIPATION Trazodone HCl (Desyrel Tab*) 100 mg PO BEDTIME [facility] Last Admin: 04/15/18 21:20 Dose: 100 mg Objective: [] Vital Signs Temp Pulse Resp BP Pulse Ox 97.8 F 65 18 76/43 93 04/16/18 08:10 04/16/18 07:39 04/16/18 07:39 04/16/18 07:39 04/16/18 07:39 HEENT: Conjunctiva pale, oral mucosa moist, no lesions. Lungs: Decreased breath sounds, some crackles at the base. She showed me sputum that is dark brown. Heart: Regular rate and rhythm S1-S2 no murmur rubs or gallops. Abdomen: Positive bowel sounds nondistended nontender Extremities: Warm, no edema. Neurologic: Oriented 3. Normal finger to nose. Stationary tremor. Blood cultures to 21 strep pneumonia. Hemoglobin 8.2, down platelets 53,000, white count stable. Normal creatinine. Assessment: [] 62-year-old female with metastatic non-small cell lung cancer currently on chemotherapy with carboplatinum and pemetrexed. Had been on pembrolizumab but held 4 weeks ago for a rash. Presents with a strep pneumonia complicated by persistent hypotension, bronchitis. Plan: [] 1. Strep pneumonia. Pansensitive, continue cefepime. 2. Shortness of breath. Secondary to pneumonia, COPD. Continue Solu-Medrol and follow. 3. Hypotension. Blood pressure 110-120 systolic in clinic, has been running 76 -90 in hospital. Differential diagnosis includes residual sepsis, polypharmacy , autonomic dysfunction from immunotherapy or carboplatinum. No symptoms of hypoperfusion, will follow. Change Solu-Medrol to 60 mg IV daily 4. Hematologic. Mild pancytopenia from chemotherapy. Transfuse hemoglobin under 8.0 5. FEN. Urinating well, discontinue IV fluids. 6. Change in vision. Check CT brain with contrast. 7. Non-small cell lung cancer. Therapy on hold until pneumonia resolved.
[2018-04-16] MEDS ORDERED: Iohexol 300* (CONTRAST) 10 ML SDV IV ONE (11:34)
[2018-04-16] MEDS: DULoxetine DR CAP* 60 MG CAP.DR PO SCH (16:38)
[2018-04-16] MEDS: Morphine ORAL.SOLN 10 mg* 2 MG/ML UDC 5 ml PO PRN (18:33)
[2018-04-16] MEDS: CMC:Pravastatin (NF) 20 MG TAB PO SCH (22:40)
[2018-04-16] MEDS: traZODone TAB* 100 MG PO SCH (22:40)
[2018-04-16] MEDS: ARIPiprazole TAB* 5 MG PO SCH (22:40)
[2018-04-17] MEDS: Morphine ORAL.SOLN 10 mg* 2 MG/ML UDC 5 ml PO PRN (04:22)
[2018-04-17 04:43] LABS: Hematocrit 26 % (35-47); Hemoglobin 8.7 g/dl (12.0-16.0); Mean Corpuscular HGB Conc 34 g/dl (31-36); Mean Corpuscular Hemoglobin 32 pg (27-31); Mean Corpuscular Volume 95 fL (80-97); Mean Platelet Volume 8.6 fL (7.4-10.4); Platelet Count 63 10^3/ul (150-450); Red Cell Distribution Width 15 % (10.5-15)
[2018-04-17 05:01] LABS: Albumin/Globulin Ratio 1.2 (1-3); BUN/Creatinine Ratio 21.1 (8-20); Calcium 8.6 mg/dL (8.6-10.3); EGFR African American 130.5 (>60); EGFR Non-African American 107.8 (>60); Globulin 2.5 g/dL (2-4); Magnesium 1.7 mg/dL (1.9-2.7); Potassium 3.8 mmol/L (3.5-5.0); Total Bilirubin 0.3 mg/dL (0.2-1.0); Total Protein 5.5 g/dL (6.4-8.9)
[2018-04-17 05:04] LABS: ABS Basophils 0 10^3/ul (0-0.2); ABS Eosinophils 0 10^3/ul (0-0.6); ABS Lymphocytes 0.5 10^3/ul (1.0-4.8); ABS Monocytes 0.2 10^3/ul (0-0.8); ABS Neutrophils 4.3 10^3/ul (1.5-7.7); ABS Nucleated RBC 0 10^3/ul; Eosinophil % 0 %; Lymphocyte % 9.8 %; Nucleated Red Blood Cells % 0
[2018-04-17 05:14] LABS: INR 6.6 (0.77-1.02)
[2018-04-17] MEDS ORDERED: Phytonadione Oral Solution* 5 MG/25 ML UDC PO ONE (05:44)
[2018-04-17] MEDS: Morphine TAB Extended Release (*) 30 MG TAB.ER PO SCH ×3 (06:13→21:04)
[2018-04-17] MEDS: Famotidine TAB* 20 MG PO SCH (08:28)
[2018-04-17] MEDS: Potassium Chlor TAB* 20 MEQ TAB.ER PO SCH ×2 (08:28→21:03)
[2018-04-17] MEDS: Hydroxychloroquine TAB* 200 MG PO SCH (08:28)
[2018-04-17] MEDS: Docusate CAP* 100 MG PO SCH ×2 (08:28→21:03)
[2018-04-17] MEDS: Cefepime 2 GM in Dextrose(*) 2 GM/50 ML BAG IV SCH ×2 (08:29→19:53)
[2018-04-17] MEDS: methylPREDNISolone 125 MG* 2 ML VIAL IV SCH (08:29)
[2018-04-17] MEDS: Folic Acid TAB* 1 MG PO SCH (08:29)
[2018-04-17] MEDS: FORMOTEROL FUM INH SCH ×2 (08:33→21:07)
[2018-04-17] MEDS: GLYCOPYRROLATE INH SCH ×2 (08:33→21:07)
[2018-04-17] MEDS ORDERED: Magnesium Sulfate 2 GM IV* 2 GM/50 ML BAG IVPB ONE (09:26)
--- NOTE | 2018-04-17 09:26 | PN ---
Progress Note - Progress Note Date of Service: 04/17/18 SOAP: Subjective: [] May be feeling a little bit better today. Yesterday when fine. Continues to cough up dark-colored sputum. Breathing still difficult. Eating well. Blood pressure has been higher. Acetaminophen (Tylenol Tab*) 650 mg PO Q4H PRN PRN Reason: FEVER Last Admin: 04/16/18 11:35 Dose: 650 mg Aripiprazole (Abilify Tab*) 5 mg PO BEDTIME [facility] Last Admin: 04/16/18 22:40 Dose: 5 mg Baclofen (Lioresal Tab*) 20 mg PO DAILY PRN PRN Reason: SPASMS Diazepam (Valium Tab(*)) 5 mg PO TID PRN PRN Reason: ANXIETY Docusate Sodium (Colace Cap*) 100 mg PO BID [facility] Last Admin: 04/17/18 08:28 Dose: 100 mg Duloxetine HCl (Cymbalta Cap*) 60 mg PO QPM [facility] Last Admin: 04/16/18 16:38 Dose: 60 mg Famotidine (Pepcid Tab*) 40 mg PO DAILY [facility] Last Admin: 04/17/18 08:28 Dose: 40 mg Folic Acid (Folvite Tab*) 1 mg PO DAILY [facility] Last Admin: 04/17/18 08:29 Dose: 1 mg Heparin Sodium (Porcine) (Heparin Flush Port (Ivad)) 5 ml FLUSH DAILY [facility]; Protocol Last Admin: 04/17/18 04:24 Dose: 5 ml Hydroxychloroquine Sulfate (Plaquenil Tab*) 200 mg PO DAILY WITH MEAL [facility] Last Admin: 04/17/18 08:28 Dose: 200 mg Cefepime HCl (Maxipime 2 Gm In Dextrose Duplex (*)) 2 gm in 50 mls @ 100 mls/ hr IV Q12H [facility] Last Admin: 04/17/18 08:29 Dose: 100 mls/hr Methylprednisolone Sodium Succinate (Solu-Medrol 125mg *) 60 mg IV DAILY [facility] Last Admin: 04/17/18 08:29 Dose: 60 mg Morphine Sulfate (Morphine Oral.Soln 10 Mg*) 15 mg PO Q4H PRN PRN Reason: PAIN Last Admin: 04/17/18 04:22 Dose: 15 mg Morphine Sulfate (Ms Contin(*)) 90 mg PO Q8HR [facility] Last Admin: 04/17/18 06:13 Dose: 90 mg Non-Formulary Medication (Glycopyrrolate/Formoterol Fum [Bevespi Aerosphere Inhaler]) 1 puff INH BID [facility] Last Admin: 04/17/18 08:33 Dose: Not Given Ondansetron HCl (Zofran Tab*) 4 mg PO Q4HR PRN PRN Reason: NAUSEA Pharmacy Profile Note (Coumadin Per Pharmacy*) 0 note FOLLOW UP .PER PHARMACY PROTOC [facility]; Protocol Pharmacy Profile Note (Coumadin Daily Reminder*) 1 note FOLLOW UP 1700 [facility] Last Admin: 04/16/18 16:38 Dose: 1 note Potassium Chloride (Klor Con Er Tab*) 20 meq PO BID [facility] Last Admin: 04/17/18 08:28 Dose: 20 meq Pravastatin Sodium (Pravachol (Nf)) 10 mg PO BEDTIME [facility] Last Admin: 04/16/18 22:40 Dose: 10 mg Prochlorperazine (Compazine Tab*) 10 mg PO Q6HR PRN PRN Reason: CONSTIPATION Senna (Senokot Tab*) 1 tab PO DAILY PRN PRN Reason: CONSTIPATION Trazodone HCl (Desyrel Tab*) 100 mg PO BEDTIME [facility] Last Admin: 04/16/18 22:40 Dose: 100 mg Objective: [] Vital Signs Temp Pulse Resp BP Pulse Ox 97.7 F 83 18 108/61 92 04/17/18 08:01 04/17/18 08:01 04/17/18 08:40 04/17/18 08:01 04/17/18 08:01 HEENT: Conjunctiva pale, oral mucosa moist, no lesions. Lungs: Decreased breath sounds, some crackles at the base. No change. Heart: Regular rate and rhythm S1-S2 no murmur rubs or gallops. Abdomen: Positive bowel sounds nondistended nontender Extremities: Warm, no edema. Neurologic: Oriented 3. Blood cultures + strep pneumonia. Hemoglobin 8.7, down platelets 63,000, white count stable. Magnesium 1.7. CT brain: No evidence of metastatic disease, infarct. Assessment: [] 62-year-old female with metastatic non-small cell lung cancer currently on chemotherapy with carboplatinum and pemetrexed. Had been on pembrolizumab but held 4 weeks ago for a rash. Presents with a strep pneumonia complicated by persistent hypotension, bronchitis. Plan: [] 1. Strep pneumonia. Pansensitive, continue cefepime. 2. Shortness of breath. Secondary to pneumonia, COPD. Continue Solu-Medrol and follow. 3. Hypotension. Resolved, likely second to sepsis. 4. Hematologic. Mild pancytopenia from chemotherapy. Transfuse hemoglobin under 8.0 5. FEN. Replete magnesium. 6. Change in vision. CT brain negative. Continue to follow. 7. Non-small cell lung cancer. Therapy on hold until pneumonia resolved.
[2018-04-17] MEDS: DULoxetine DR CAP* 60 MG CAP.DR PO SCH (16:51)
[2018-04-17] MEDS: Diazepam TAB(*) 5 MG PO PRN (19:44)
[2018-04-17] MEDS: ARIPiprazole TAB* 5 MG PO SCH (21:03)
[2018-04-17] MEDS: traZODone TAB* 100 MG PO SCH (21:03)
[2018-04-17] MEDS: CMC:Pravastatin (NF) 20 MG TAB PO SCH (21:04)
[2018-04-18] MEDS: Morphine ORAL.SOLN 10 mg* 2 MG/ML UDC 5 ml PO PRN ×3 (03:31→17:11)
[2018-04-18] MEDS: Morphine TAB Extended Release (*) 30 MG TAB.ER PO SCH ×3 (05:43→21:12)
[2018-04-18 06:14] LABS: Hematocrit 27 % (35-47); Mean Corpuscular HGB Conc 34 g/dl (31-36); Mean Corpuscular Hemoglobin 32 pg (27-31); Mean Corpuscular Volume 95 fL (80-97); Mean Platelet Volume 8.7 fL (7.4-10.4); Platelet Count 74 10^3/ul (150-450); Red Blood Count 2.79 10^6/ul (4.00-5.40); Red Cell Distribution Width 15 % (10.5-15)
[2018-04-18 06:17] LABS: INR 1.26 (0.77-1.02)
[2018-04-18 06:39] LABS: Albumin/Globulin Ratio 1.1 (1-3); BUN/Creatinine Ratio 17.5 (8-20); Calcium 8.7 mg/dL (8.6-10.3); EGFR African American 116.2 (>60); EGFR Non-African American 96.1 (>60); Globulin 2.8 g/dL (2-4); Magnesium 1.7 mg/dL (1.9-2.7); Potassium 3.9 mmol/L (3.5-5.0); Total Bilirubin 0.3 mg/dL (0.2-1.0); Total Protein 5.8 g/dL (6.4-8.9)
[2018-04-18 07:29] LABS: ABS Basophils 0 10^3/ul (0-0.2); ABS Eosinophils 0 10^3/ul (0-0.6); ABS Monocytes 0.3 10^3/ul (0-0.8); ABS Neutrophils 2.7 10^3/ul (1.5-7.7); ABS Nucleated RBC 0 10^3/ul; Eosinophil % 0.4 %; Lymphocyte % 25.7 %; Nucleated Red Blood Cells % 0.1
[2018-04-18] MEDS: methylPREDNISolone 125 MG* 2 ML VIAL IV SCH (08:26)
[2018-04-18] MEDS: Potassium Chlor TAB* 20 MEQ TAB.ER PO SCH ×2 (08:26→21:15)
[2018-04-18] MEDS: Hydroxychloroquine TAB* 200 MG PO SCH (08:26)
[2018-04-18] MEDS: Docusate CAP* 100 MG PO SCH ×2 (08:27→21:15)
[2018-04-18] MEDS: Famotidine TAB* 20 MG PO SCH (08:27)
[2018-04-18] MEDS: Folic Acid TAB* 1 MG PO SCH (08:27)
[2018-04-18] MEDS: Cefepime 2 GM in Dextrose(*) 2 GM/50 ML BAG IV SCH (08:27)
[2018-04-18] MEDS ORDERED: Albuterol/Ipratropium NEB.SOL* Albuterol 2.5 MG/Ipratropium 0.5 MG 3 ML INH PRN (09:18)
[2018-04-18] MEDS: GLYCOPYRROLATE INH SCH (09:20)
[2018-04-18] MEDS: FORMOTEROL FUM INH SCH (09:20)
--- NOTE | 2018-04-18 09:37 | PN ---
Progress Note - Progress Note Date of Service: 04/18/18 SOAP: Subjective: []Feeling OK this AM. Better then on admission. Had a rough night, states she had a bad dream and then an episode of difficulty breathing. Coughing up lots of "junk" and had some blood in sputum last night. Has some mild swelling in LEs and discoloration of legs, "I've had that for a long time." Medications: Acetaminophen (Tylenol Tab*) 650 mg PO Q4H PRN PRN Reason: FEVER Last Admin: 04/16/18 11:35 Dose: 650 mg Albuterol/Ipratropium (Duoneb (Albuterol 2.5 Mg/Ipratropium 0.5 Mg)) 1 neb INH Q4H PRN PRN Reason: SOB/WHEEZING Aripiprazole (Abilify Tab*) 5 mg PO BEDTIME [facility] Last Admin: 04/17/18 21:03 Dose: 5 mg Baclofen (Lioresal Tab*) 20 mg PO DAILY PRN PRN Reason: SPASMS Diazepam (Valium Tab(*)) 5 mg PO TID PRN PRN Reason: ANXIETY Last Admin: 04/17/18 19:44 Dose: 5 mg Docusate Sodium (Colace Cap*) 100 mg PO BID [facility] Last Admin: 04/18/18 08:27 Dose: 100 mg Duloxetine HCl (Cymbalta Cap*) 60 mg PO QPM [facility] Last Admin: 04/17/18 16:51 Dose: 60 mg Famotidine (Pepcid Tab*) 40 mg PO DAILY [facility] Last Admin: 04/18/18 08:27 Dose: 40 mg Folic Acid (Folvite Tab*) 1 mg PO DAILY [facility] Last Admin: 04/18/18 08:27 Dose: 1 mg Heparin Sodium (Porcine) (Heparin Flush Port (Ivad)) 5 ml FLUSH DAILY [facility]; Protocol Last Admin: 04/18/18 08:26 Dose: 5 ml Hydroxychloroquine Sulfate (Plaquenil Tab*) 200 mg PO DAILY WITH MEAL [facility] Last Admin: 04/18/18 08:26 Dose: 200 mg Ceftriaxone Sodium 1 gm/ (Sodium Chloride) 50 mls @ 200 mls/hr IVPB Q24H [facility] Magnesium Oxide (Magox 400 Tab*) 400 mg PO BID WITH MEALS [facility] Methylprednisolone Sodium Succinate (Solu-Medrol 125mg *) 60 mg IV DAILY [facility] Last Admin: 04/18/18 08:26 Dose: 60 mg Morphine Sulfate (Morphine Oral.Soln 10 Mg*) 15 mg PO Q4H PRN PRN Reason: PAIN Last Admin: 04/18/18 03:31 Dose: 15 mg Morphine Sulfate (Ms Contin(*)) 90 mg PO Q8HR [facility] Last Admin: 04/18/18 05:43 Dose: 90 mg Ondansetron HCl (Zofran Tab*) 4 mg PO Q4HR PRN PRN Reason: NAUSEA Pharmacy Profile Note (Coumadin Per Pharmacy*) 0 note FOLLOW UP .PER PHARMACY PROTOC [facility]; Protocol Potassium Chloride (Klor Con Er Tab*) 20 meq PO BID [facility] Last Admin: 04/18/18 08:26 Dose: 20 meq Pravastatin Sodium (Pravachol (Nf)) 10 mg PO BEDTIME [facility] Last Admin: 04/17/18 21:04 Dose: 10 mg Prochlorperazine (Compazine Tab*) 10 mg PO Q6HR PRN PRN Reason: CONSTIPATION Senna (Senokot Tab*) 1 tab PO DAILY PRN PRN Reason: CONSTIPATION Trazodone HCl (Desyrel Tab*) 100 mg PO BEDTIME [facility] Last Admin: 04/17/18 21:03 Dose: 100 mg Objective: [] Vital Signs Temp Pulse Resp BP Pulse Ox 98.3 F 74 16 100/64 96 04/18/18 08:00 04/18/18 08:00 04/18/18 08:00 04/18/18 08:00 04/18/18 08:00 A&Ox3, EOMI, HALL, neuro grossly non-focal HRR, S1S2, SR on tele one run of PVCs overnight, approx. 3am, 4 beat run LS with crackles and wheezes bilat. bases Bilat. LE with rubor to ankles, trace edema, difficult to palpate pulses Skin warm, no ulcerations noted Good cap. refil Laboratory Results - last 24 hr 04/18/18 04/18/18 04/18/18 05:45 05:45 05:45 WBC 4.0 RBC 2.79 L Hgb 9.0 L Hct 27 L MCV 95 MCH 32 H MCHC 34 RDW 15 Plt Count 74 L MPV 8.7 Neut % (Auto) 66.0 Lymph % (Auto) 25.7 Giles % (Auto) 7.8 Eos % (Auto) 0.4 Baso % (Auto) 0.1 Absolute Neuts (auto) 2.7 Absolute Lymphs (auto) 1.0 Absolute Monos (auto) 0.3 Absolute Eos (auto) 0 Absolute Basos (auto) 0 Absolute Nucleated RBC 0 Nucleated RBC % 0.1 INR (Anticoag Therapy) 1.26 H Sodium 139 Potassium 3.9 Chloride 104 Carbon Dioxide 30 Anion Gap 5 BUN 11 Creatinine 0.63 Est GFR ( Amer) 116.2 Est GFR (Non-Af Amer) 96.1 BUN/Creatinine Ratio 17.5 Glucose 86 Calcium 8.7 Magnesium 1.7 L Total Bilirubin 0.30 AST 14 ALT 16 Alkaline Phosphatase 70 Total Protein 5.8 L Albumin 3.0 L Globulin 2.8 Albumin/Globulin Ratio 1.1 Assessment: []62 yo female with metastatic NSCLC admitted with sepsis secondary to Strep. Pneumo (fields-sensitive), slowly improving. Plan: []1. Strep. Pneumo Sepsis: felt 2/2 underlying pneumonia, however 2/4 bottles positive are from port therefore concernign for port tip colonization - repeat blood cultures and chest x-ray today - step down abx. to Ceftriaxone 1 gram IV daily, will require 14 day course of abx. from date of negative cultures (hopeful for today being D1) - check echo for valve colonization today - persistent but stable hypotension, monitor - add nebs 2. Hypomagnesemia: start oral replacement and follow daily labs 3. Pancytopenia 2/2 chemotherapy: improving, follow counts 4. Weakness on admission r/t acute illness: request PT eval. for d/c planning 5. 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 Chronic venous insufficiency: follow
[2018-04-18 09:55] LABS: Hematocrit 28 % (35-47); Hemoglobin 9.7 g/dl (12.0-16.0); Mean Corpuscular HGB Conc 34 g/dl (31-36); Mean Corpuscular Hemoglobin 33 pg (27-31); Mean Corpuscular Volume 96 fL (80-97); Red Blood Count 2.94 10^6/ul (4.00-5.40); Red Cell Distribution Width 16 % (10.5-15); White Blood Count 3.3 10^3/ul (3.5-10.8)
[2018-04-18 10:17] LABS: ABS Basophils 0 10^3/ul (0-0.2); ABS Eosinophils 0 10^3/ul (0-0.6); ABS Lymphocytes 0.8 10^3/ul (1.0-4.8); ABS Monocytes 0.2 10^3/ul (0-0.8); ABS Neutrophils 2.3 10^3/ul (1.5-7.7); ABS Nucleated RBC 0 10^3/ul; Eosinophil % 0.5 %; Lymphocyte % 23.1 %; Mean Platelet Volume 8.4 fL (7.4-10.4); Nucleated Red Blood Cells % 0.1; Platelet Count 88 10^3/ul (150-450)
[2018-04-18] MEDS: cefTRIAXone(*) 1 GM in NS 0.9% 50 ML* 50 ML IVPB SCH (10:34)
[2018-04-18] MEDS: Magnesium Oxide TAB* 400 MG PO SCH ×2 (11:53→17:11)
--- NOTE | 2018-04-18 15:05 | ECHO ---
Patient: RIP [facility] Rec#: [id number] : 1955 Date: 04/18/2018 Age: 62y Height: 168 cm / 66.1 in Weight: 57 kg / 125.6 lbs Sex: F BSA: 1.64 Room#: 3 Admit Date#: 04/16/2018 Type: Inpatient Referring: Randa Paul Reading: Gunner Mercer DO [employer]: Lay Somers,RDCS,RDMS CC: Ryan Mar MD Transthoracic Echocardiogram Indication: SOB, sepsis BP: 100/64 HR: 79 Rhythm: NSR Findings History: COPD, Factor V Leiden, small cell lung cancer, chemotherapy, smoker Technical Comments: The study quality is fair. Left Ventricle: The left ventricular chamber size is normal. Mild concentric left ventricular hypertrophy is observed. There is a prominent septal knuckle. Global left ventricular wall motion and contractility are within normal limits. The estimated ejection fraction is greater than 65%. There is no consistent Doppler evidence of clinically significant diastolic dysfunction. Left Atrium: The left atrial chamber size is normal. Right Ventricle: The right ventricular chamber size and systolic function are within normal limits. Right Atrium: The right atrial cavity size is normal. Aortic Valve: The aortic valve is trileaflet. Systolic excursion of the aortic valve is normal. There is trace to mild aortic regurgitation. There is no evidence of aortic stenosis. Mitral Valve: The mitral valve leaflets are mildly thickened. There is no evidence of mitral regurgitation. There is no evidence of mitral stenosis. Tricuspid Valve: The tricuspid valve leaflets are normal. There is mild tricuspid regurgitation. There is evidence of mild pulmonary hypertension. Pulmonic Valve: The pulmonic valve appears normal. There is a trace pulmonic regurgitation. There is no pulmonic stenosis. Pericardium: There is no significant pericardial effusion. Aorta: The aortic root appears normal. The aortic arch is not well visualized. Pulmonary Artery: The main pulmonary artery is not well visualized. Venous: The inferior vena cava appears normal in size. There is a greater than 50% respiratory change in the inferior vena cava dimension. Conclusions The left ventricular chamber size is normal. Mild concentric left ventricular hypertrophy is observed. Global left ventricular wall motion and contractility are within normal limits. The estimated ejection fraction is 65-70% The left atrial chamber size is normal. The right ventricular chamber size and systolic function are within normal limits. There is mild tricuspid regurgitation. There is evidence of mild pulmonary hypertension. Compared to prior study from 11/2017, no clinically significant changes noted Measurements Name Value Normal Range RVIDd (AP) 2D 2.6 cm (0.9 - 2.6) RVDdMajor (2D) 2.4 cm (2.2 - 4.4) RAd ISD 4CH 4.4 cm (3.4 - 4.9) RA (A4C)W 3.4 cm (2.9 - 4.6) IVSd (2D) 1.1 cm (0.6 - 1) LVPWd (2D) 0.9 cm (0.6 - 1) LVIDd (2D) 4.1 cm (3.6 - 5.4) LVIDs (2D) 2.6 cm - LV FS (2D) 37 % (25 - 45) Aortic Annulus 1.9 cm (1.4 - 2.6) Ao root diameter (2D) 3 cm (2.1 - 3.5) Ascending Ao 3.1 cm (2.1 - 3.4) Aortic arch 3.4 cm (1.8 - 3.4) LA dimension (AP) 2D 3 cm (2.3 - 3.8) LAd ISD 4CH 5.1 cm (2.9 - 5.3) LA ISD 4CH W 3.6 cm (2.5 - 4.5) Name Value Normal Range LA ESV BP (A/L) index 29 ml/m2 - Name Value Normal Range MV E-wave Vmax 0.9 m/sec - MV deceleration time 158 msec - MV A-wave Vmax 1.1 m/sec - MV E:A ratio 0.8 ratio - P. vein S-wave Vmax 0.6 m/sec - P. vein D-wave Vmax 0.4 m/sec - P. vein S:D Vmax ratio 1.4 ratio - P. vein A-wave duration 100 msec - LV septal e' Vmax 0.08 m/sec - LV lateral e' Vmax 0.08 m/sec - LV E:e' septal ratio 11 ratio - LV E:e' lateral ratio 11 ratio - Name Value Normal Range AV Vmax 2 m/sec - AV VTI 39 cm - AV peak gradient 16 mmHg - AV mean gradient 8 mmHg - LVOT diameter 2 cm - LVOT Vmax 1.6 m/sec - LVOT VTI 36 cm - LVOT peak gradient 10 mmHg - LVOT mean gradient 6 mmHg - DOI (VTI) 0.9 ratio - MICHAEL (continuity Vmax) 2.5 cm2 - MICHAEL (continuity VTI) 2.9 cm2 - Name Value Normal Range MV Vmax 1.1 m/sec - MV VTI 33 cm - MV peak gradient 5 mmHg - MV mean gradient 2 mmHg - MV PHT 62 msec - MVA (PHT) 3.6 cm2 - MVA (continuity VTI) 3.4 cm2 - Name Value Normal Range TR Vmax 2.9 m/sec - TR peak gradient 33 mmHg - RAP 8 mmHg - RVSP 41 mmHg - IVC diameter 2 cm - Name Value Normal Range PV Vmax 1.1 m/sec - PV peak gradient 5 mmHg -
[2018-04-18] MEDS ORDERED: Warfarin TAB(*) 2 MG PO ONE (17:00)
[2018-04-18] MEDS: DULoxetine DR CAP* 60 MG CAP.DR PO SCH (17:11)
[2018-04-18] MEDS: CMC:Pravastatin (NF) 20 MG TAB PO SCH (21:14)
[2018-04-18] MEDS: traZODone TAB* 100 MG PO SCH (21:15)
[2018-04-18] MEDS: ARIPiprazole TAB* 5 MG PO SCH (21:15)
[2018-04-19] MEDS: Diazepam TAB(*) 5 MG PO PRN (01:35)
[2018-04-19] MEDS: Morphine TAB Extended Release (*) 30 MG TAB.ER PO SCH ×3 (05:38→21:15)
[2018-04-19 06:23] LABS: INR 1.02 (0.77-1.02)
[2018-04-19 06:28] LABS: Hematocrit 27 % (35-47); Hemoglobin 9.1 g/dl (12.0-16.0); Mean Corpuscular HGB Conc 34 g/dl (31-36); Mean Corpuscular Hemoglobin 32 pg (27-31); Mean Corpuscular Volume 96 fL (80-97); Mean Platelet Volume 8.7 fL (7.4-10.4); Platelet Count 105 10^3/ul (150-450); Red Blood Count 2.82 10^6/ul (4.00-5.40); Red Cell Distribution Width 16 % (10.5-15); White Blood Count 4.7 10^3/ul (3.5-10.8)
[2018-04-19 06:35] LABS: Albumin 3.1 g/dL (3.2-5.2); Albumin/Globulin Ratio 1.1 (1-3); BUN/Creatinine Ratio 19.3 (8-20); Calcium 8.7 mg/dL (8.6-10.3); EGFR African American 130.5 (>60); EGFR Non-African American 107.8 (>60); Globulin 2.9 g/dL (2-4); Magnesium 1.8 mg/dL (1.9-2.7); Potassium 4.1 mmol/L (3.5-5.0); Total Bilirubin 0.3 mg/dL (0.2-1.0)
[2018-04-19 07:32] LABS: ABS Basophils 0 10^3/ul (0-0.2); ABS Eosinophils 0 10^3/ul (0-0.6); ABS Lymphocytes 1.3 10^3/ul (1.0-4.8); ABS Monocytes 0.3 10^3/ul (0-0.8)
[2018-04-19 07:34] LABS: Immature Granulocytes 2 % (0-9); Lymphocytes % 45 %; Monocytes % 8 %; Myelocytes % 2 % (0-1); Neutrophil % 45 %
[2018-04-19 07:35] LABS: Nucleated Red Blood Cells/100 1 (0-0); Polychromasia 1+
[2018-04-19 07:36] LABS: ABS Neutrophils 2.2 10^3/ul (1.5-7.7)
[2018-04-19] MEDS: Famotidine TAB* 20 MG PO SCH (08:41)
[2018-04-19] MEDS: Potassium Chlor TAB* 20 MEQ TAB.ER PO SCH ×2 (08:41→19:33)
[2018-04-19] MEDS: Magnesium Oxide TAB* 400 MG PO SCH ×2 (08:41→17:02)
[2018-04-19] MEDS: methylPREDNISolone 125 MG* 2 ML VIAL IV SCH (08:41)
[2018-04-19] MEDS: Docusate CAP* 100 MG PO SCH ×2 (08:41→19:34)
[2018-04-19] MEDS: Folic Acid TAB* 1 MG PO SCH (08:41)
[2018-04-19] MEDS: Hydroxychloroquine TAB* 200 MG PO SCH (08:41)
--- NOTE | 2018-04-19 09:51 | PN ---
Progress Note - Progress Note Date of Service: 04/19/18 SOAP: Subjective: [Paris reports that she continues to slowly improve and would like to get home soon. Some persistent dyspnea on exertion. Cough improved. No recent fevers. Appetite improving.] Objective: [ Laboratory Results - last 24 hr 04/18/18 04/19/18 04/19/18 09:40 05:50 05:50 WBC 3.3 L 4.7 RBC 2.94 L 2.82 L Hgb 9.7 L 9.1 L Hct 28 L 27 L MCV 96 96 MCH 33 H 32 H MCHC 34 34 RDW 16 H 16 H Plt Count 88 L 105 L MPV 8.4 8.7 Neut % (Auto) 69.6 Not Reportable Lymph % (Auto) 23.1 Not Reportable [place] % (Auto) 6.7 Not Reportable Eos % (Auto) 0.5 Not Reportable Baso % (Auto) 0.1 Not Reportable Absolute Neuts (auto) 2.3 3.0 Absolute Lymphs (auto) 0.8 L 1.3 Absolute Monos (auto) 0.2 0.3 Absolute Eos (auto) 0 0 Absolute Basos (auto) 0 0 Absolute Nucleated RBC 0 Not Reportable Immature Gran % 2 Neutrophils % 45 Lymphocytes % 45 Monocytes % 8 Myelocytes % 2 H Nucleated RBC % 0.1 Not Reportable Abs Neuts (Manual) 2.2 Abs Lymphs (Manual) 2.1 Abs Monocytes (Manual) 0.4 Nucleated RBCs/100 WBC 1 H Normal RBC Morphology Not Reportable Polychromasia 1+ Hypochromasia 1+ Anisocytosis 1+ INR (Anticoag Therapy) Sodium 137 Potassium 4.1 Chloride 102 Carbon Dioxide 31 Anion Gap 4 BUN 11 Creatinine 0.57 Est GFR ( Amer) 130.5 Est GFR (Non-Af Amer) 107.8 BUN/Creatinine Ratio 19.3 Glucose 85 Calcium 8.7 Magnesium 1.8 L Total Bilirubin 0.30 AST 12 L ALT 16 Alkaline Phosphatase 71 Total Protein 6.0 L Albumin 3.1 L Globulin 2.9 Albumin/Globulin Ratio 1.1 04/19/18 05:50 WBC RBC Hgb Hct MCV MCH MCHC RDW Plt Count MPV Neut % (Auto) Lymph % (Auto) [place] % (Auto) Eos % (Auto) Baso % (Auto) Absolute Neuts (auto) Absolute Lymphs (auto) Absolute Monos (auto) Absolute Eos (auto) Absolute Basos (auto) Absolute Nucleated RBC Immature Gran % Neutrophils % Lymphocytes % Monocytes % Myelocytes % Nucleated RBC % Abs Neuts (Manual) Abs Lymphs (Manual) Abs Monocytes (Manual) Nucleated RBCs/100 WBC Normal RBC Morphology Polychromasia Hypochromasia Anisocytosis INR (Anticoag Therapy) 1.02 Sodium Potassium Chloride Carbon Dioxide Anion Gap BUN Creatinine Est GFR ( Amer) Est GFR (Non-Af Amer) BUN/Creatinine Ratio Glucose Calcium Magnesium Total Bilirubin AST ALT Alkaline Phosphatase Total Protein Albumin Globulin Albumin/Globulin Ratio Acetaminophen (Tylenol Tab*) 650 mg PO Q4H PRN PRN Reason: FEVER Last Admin: 04/16/18 11:35 Dose: 650 mg Albuterol/Ipratropium (Duoneb (Albuterol 2.5 Mg/Ipratropium 0.5 Mg)) 1 neb INH Q4H PRN PRN Reason: SOB/WHEEZING Aripiprazole (Abilify Tab*) 5 mg PO BEDTIME [facility] Last Admin: 04/18/18 21:15 Dose: 5 mg Baclofen (Lioresal Tab*) 20 mg PO DAILY PRN PRN Reason: SPASMS Diazepam (Valium Tab(*)) 5 mg PO TID PRN PRN Reason: ANXIETY Last Admin: 04/19/18 01:35 Dose: 5 mg Docusate Sodium (Colace Cap*) 100 mg PO BID [facility] Last Admin: 04/19/18 08:41 Dose: 100 mg Duloxetine HCl (Cymbalta Cap*) 60 mg PO QPM [facility] Last Admin: 04/18/18 17:11 Dose: 60 mg Famotidine (Pepcid Tab*) 40 mg PO DAILY [facility] Last Admin: 04/19/18 08:41 Dose: 40 mg Folic Acid (Folvite Tab*) 1 mg PO DAILY [facility] Last Admin: 04/19/18 08:41 Dose: 1 mg Heparin Sodium (Porcine) (Heparin Flush Port (Ivad)) 5 ml FLUSH DAILY [facility]; Protocol Last Admin: 04/19/18 08:42 Dose: 5 ml Hydroxychloroquine Sulfate (Plaquenil Tab*) 200 mg PO DAILY WITH MEAL [facility] Last Admin: 04/19/18 08:41 Dose: 200 mg Ceftriaxone Sodium 1 gm/ (Sodium Chloride) 50 mls @ 200 mls/hr IVPB Q24H [facility] Last Admin: 04/18/18 10:34 Dose: 200 mls/hr Magnesium Oxide (Magox 400 Tab*) 400 mg PO BID WITH MEALS [facility] Last Admin: 04/19/18 08:41 Dose: 400 mg Methylprednisolone Sodium Succinate (Solu-Medrol 125mg *) 60 mg IV DAILY [facility] Last Admin: 04/19/18 08:41 Dose: 60 mg Morphine Sulfate (Morphine Oral.Soln 10 Mg*) 15 mg PO Q4H PRN PRN Reason: PAIN Last Admin: 04/18/18 17:11 Dose: 15 mg Morphine Sulfate (Ms Contin(*)) 90 mg PO Q8HR [facility] Last Admin: 04/19/18 05:38 Dose: 90 mg Ondansetron HCl (Zofran Tab*) 4 mg PO Q4HR PRN PRN Reason: NAUSEA Pharmacy Profile Note (Coumadin Per Pharmacy*) 0 note FOLLOW UP .PER PHARMACY PROTOC [facility]; Protocol Potassium Chloride (Klor Con Er Tab*) 20 meq PO BID [facility] Last Admin: 04/19/18 08:41 Dose: 20 meq Pravastatin Sodium (Pravachol (Nf)) 10 mg PO BEDTIME [facility] Last Admin: 04/18/18 21:14 Dose: 10 mg Prochlorperazine (Compazine Tab*) 10 mg PO Q6HR PRN PRN Reason: CONSTIPATION Senna (Senokot Tab*) 1 tab PO DAILY PRN PRN Reason: CONSTIPATION Trazodone HCl (Desyrel Tab*) 100 mg PO BEDTIME [facility] Last Admin: 04/18/18 21:15 Dose: 100 mg Vital Signs: Temp Pulse Resp BP Pulse Ox 98.4 F 77 18 113/63 96 04/19/18 07:18 04/19/18 07:18 04/19/18 07:18 04/19/18 07:18 04/19/18 07:18 Exam: Gen: Chronically ill appearing 62 yo female in NAD, fatigued appearing HEENT: MMM CV: faint murmur appreciated, RRR Resp: occasional wheeze on R lung field Abd: soft and nonTTP Ext: trace edema, chronic venous stasis changes ] [Assessment: []62 yo female with metastatic NSCLC and COPD admitted with sepsis secondary to Strep. Pneumo (fields-sensitive), slowly improving. Plan: []1. Strep. Pneumo Sepsis: - 2/2 underlying pneumonia, however 2/4 bottles positive are from port therefore concerning that the port has been seeded - TTE neg for vegetations - repeat blood cultures drawn yesterday and are currently pending - step down abx. to Ceftriaxone 1 gram IV daily, will require 14 day course of abx. from date of negative cultures 2. Pneumonia and COPD exacerbation - improved appearing infiltrate on CXR - cont ceftriaxone as described above - prn nebs - cont steroids, but step down to oral prednisone from methylprednisolone 3. Hypomagnesemia: - cont oral supplementation 4. Pancytopenia 2/2 chemotherapy: - improving, follow counts 5. 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 Chronic venous insufficiency 7. h/o PE with supratherapeutic INR - home dose of Coumadin 4 mg daily, INR reached >6 during hospitalization and she received 10mg oral vitamin K - INR 1 yesterday - resume usual home dose of 4mg daily - cont to follow daily INR Dispo: assuming blood cultures collected yesterday are resulted as negative today then plan for discharge home with IV ceftriaxone for a total of 14d
[2018-04-19] MEDS: cefTRIAXone(*) 1 GM in NS 0.9% 50 ML* 50 ML IVPB SCH (10:13)
[2018-04-19] MEDS: Nicotine PATCH 21 MG/24 HR* PATCH TRANSDERM SCH (14:51)
[2018-04-19] MEDS: Warfarin TAB(*) 4 MG PO SCH (17:01)
[2018-04-19] MEDS: DULoxetine DR CAP* 60 MG CAP.DR PO SCH (17:01)
[2018-04-19] MEDS: ARIPiprazole TAB* 5 MG PO SCH (19:29)
[2018-04-19] MEDS: CMC:Pravastatin (NF) 20 MG TAB PO SCH (19:31)
[2018-04-19] MEDS: Nicotine Patch Removal NOTE FOLLOW UP SCH (19:38)
[2018-04-19] MEDS: traZODone TAB* 100 MG PO SCH (21:15)
[2018-04-20] MEDS: Morphine TAB Extended Release (*) 30 MG TAB.ER PO SCH ×3 (05:56→22:30)
[2018-04-20] MEDS: Nicotine PATCH 21 MG/24 HR* PATCH TRANSDERM SCH (08:52)
[2018-04-20] MEDS: Docusate CAP* 100 MG PO SCH ×2 (08:53→22:32)
[2018-04-20] MEDS: Potassium Chlor TAB* 20 MEQ TAB.ER PO SCH ×2 (08:53→22:33)
[2018-04-20] MEDS: predniSONE TAB* 20 MG PO SCH (08:53)
[2018-04-20] MEDS: Hydroxychloroquine TAB* 200 MG PO SCH (08:53)
[2018-04-20] MEDS: Magnesium Oxide TAB* 400 MG PO SCH ×2 (08:54→16:55)
[2018-04-20] MEDS: Famotidine TAB* 20 MG PO SCH (08:54)
[2018-04-20] MEDS: Folic Acid TAB* 1 MG PO SCH (08:55)
[2018-04-20] MEDS: cefTRIAXone(*) 1 GM in NS 0.9% 50 ML* 50 ML IVPB SCH ×2 (08:56→09:22)
[2018-04-20] MEDS: Morphine ORAL.SOLN 10 mg* 2 MG/ML UDC 5 ml PO PRN ×2 (09:04→20:25)
[2018-04-20] MEDS ORDERED: Nicotine Lozenge* 4 MG LOZENGE MT PRN (11:43)
--- NOTE | 2018-04-20 11:45 | PN ---
Progress Note - Progress Note Date of Service: 04/20/18 SOAP: Subjective: [Feeling well. Very anxious to get home, but otherwise has no complaints.] Objective: [ Vital Signs: Temp Pulse Resp BP Pulse Ox 97.8 F 68 18 91/58 98 04/20/18 08:04 04/20/18 08:04 04/20/18 09:04 04/20/18 08:04 04/20/18 08:04 Acetaminophen (Tylenol Tab*) 650 mg PO Q4H PRN PRN Reason: FEVER Last Admin: 04/16/18 11:35 Dose: 650 mg Albuterol/Ipratropium (Duoneb (Albuterol 2.5 Mg/Ipratropium 0.5 Mg)) 1 neb INH Q4H PRN PRN Reason: SOB/WHEEZING Aripiprazole (Abilify Tab*) 5 mg PO BEDTIME [facility] Last Admin: 04/19/18 19:29 Dose: 5 mg Baclofen (Lioresal Tab*) 20 mg PO DAILY PRN PRN Reason: SPASMS Diazepam (Valium Tab(*)) 5 mg PO TID PRN PRN Reason: ANXIETY Last Admin: 04/19/18 01:35 Dose: 5 mg Docusate Sodium (Colace Cap*) 100 mg PO BID [facility] Last Admin: 04/20/18 08:53 Dose: 100 mg Duloxetine HCl (Cymbalta Cap*) 60 mg PO QPM [facility] Last Admin: 04/19/18 17:01 Dose: 60 mg Famotidine (Pepcid Tab*) 40 mg PO DAILY [facility] Last Admin: 04/20/18 08:54 Dose: 40 mg Folic Acid (Folvite Tab*) 1 mg PO DAILY [facility] Last Admin: 04/20/18 08:55 Dose: 1 mg Heparin Sodium (Porcine) (Heparin Flush Port (Ivad)) 5 ml FLUSH DAILY [facility]; Protocol Last Admin: 04/20/18 07:43 Dose: 5 ml Hydroxychloroquine Sulfate (Plaquenil Tab*) 200 mg PO DAILY WITH MEAL [facility] Last Admin: 04/20/18 08:53 Dose: 200 mg Ceftriaxone Sodium 1 gm/ (Sodium Chloride) 50 mls @ 200 mls/hr IVPB Q24H [facility] Last Admin: 04/20/18 09:22 Dose: 200 mls/hr Magnesium Oxide (Magox 400 Tab*) 400 mg PO BID WITH MEALS [facility] Last Admin: 04/20/18 08:54 Dose: 400 mg Morphine Sulfate (Morphine Oral.Soln 10 Mg*) 15 mg PO Q4H PRN PRN Reason: PAIN Last Admin: 04/20/18 09:04 Dose: 15 mg Morphine Sulfate (Ms Contin(*)) 90 mg PO Q8HR [facility] Last Admin: 04/20/18 05:56 Dose: 90 mg Nicotine (Nicotine Patch 21 Mg/24 Hr*) 1 patch TRANSDERM DAILY [facility] Last Admin: 04/20/18 08:52 Dose: 1 patch Nicotine Polacrilex (Nicotine Lozenge*) 4 mg MT Q2H PRN PRN Reason: CRAVINGS Ondansetron HCl (Zofran Tab*) 4 mg PO Q4HR PRN PRN Reason: NAUSEA Pharmacy Profile Note (Nicotine Patch Removal Note*) 1 note FOLLOW UP 2100 [facility] Last Admin: 04/19/18 19:38 Dose: 1 note Potassium Chloride (Klor Con Er Tab*) 20 meq PO BID [facility] Last Admin: 04/20/18 08:53 Dose: 20 meq Pravastatin Sodium (Pravachol (Nf)) 10 mg PO BEDTIME [facility] Last Admin: 04/19/18 19:31 Dose: 10 mg Prednisone (Deltasone Tab*) 40 mg PO DAILY [facility] Last Admin: 04/20/18 08:53 Dose: 40 mg Prochlorperazine (Compazine Tab*) 10 mg PO Q6HR PRN PRN Reason: CONSTIPATION Senna (Senokot Tab*) 1 tab PO DAILY PRN PRN Reason: CONSTIPATION Trazodone HCl (Desyrel Tab*) 100 mg PO BEDTIME [facility] Last Admin: 04/19/18 21:15 Dose: 100 mg Warfarin Sodium (Coumadin Tab(*)) 4 mg PO DAILY@1700 [facility]; Protocol Last Admin: 04/19/18 17:01 Dose: 4 mg Exam: Gen: Chronically ill appearing 62 yo female in NAD, fatigued appearing HEENT: MMM CV: faint murmur appreciated, RRR Resp: occasional wheeze on R lung field Abd: soft and nonTTP Ext: trace edema, chronic venous stasis changes ] [Assessment: []62 yo female with metastatic NSCLC and COPD admitted with sepsis secondary to Strep. Pneumo (fields-sensitive), slowly improving. Plan: []1. Strep. Pneumo Sepsis: - 2/2 underlying pneumonia, however 2/4 bottles positive are from port therefore concerning that the port has been seeded - TTE neg for vegetations - repeat blood cultures from 04/18 are negative - cont Ceftriaxone 1 gram IV daily, will require 14 day course of abx. ( starting 04/18/18) 2. Pneumonia and COPD exacerbation - improved appearing infiltrate on CXR - cont ceftriaxone as described above - prn nebs - cont steroids, but step down to oral prednisone from methylprednisolone 3. Hypomagnesemia: - cont oral supplementation 4. Pancytopenia / chemotherapy: - improving, follow counts 5. 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 Chronic venous insufficiency 7. h/o PE with supratherapeutic INR - home dose of Coumadin 4 mg daily, INR reached >6 during hospitalization and she received 10mg oral vitamin K - INR 1 yesterday - resume usual home dose of 4mg daily - cont to follow daily INR Dispo: pending insurance authorization for home antibiotics. When authorization has been received she will be discharged home]
[2018-04-20] MEDS: DULoxetine DR CAP* 60 MG CAP.DR PO SCH (16:55)
[2018-04-20] MEDS: Diazepam TAB(*) 5 MG PO PRN ×2 (16:55→20:26)
[2018-04-20] MEDS: Warfarin TAB(*) 4 MG PO SCH (16:55)
[2018-04-20] MEDS: CMC:Pravastatin (NF) 20 MG TAB PO SCH (22:31)
[2018-04-20] MEDS: ARIPiprazole TAB* 5 MG PO SCH (22:32)
[2018-04-20] MEDS: Nicotine Patch Removal NOTE FOLLOW UP SCH (22:33)
[2018-04-20] MEDS: traZODone TAB* 100 MG PO SCH (22:33)
[2018-04-21] MEDS: Morphine TAB Extended Release (*) 30 MG TAB.ER PO SCH ×2 (05:53→13:22)
[2018-04-21 06:19] LABS: Hematocrit 28 % (35-47); Hemoglobin 9.2 g/dl (12.0-16.0); Mean Corpuscular HGB Conc 33 g/dl (31-36); Mean Corpuscular Hemoglobin 32 pg (27-31); Mean Corpuscular Volume 96 fL (80-97); Mean Platelet Volume 8.3 fL (7.4-10.4); Platelet Count 218 10^3/ul (150-450); Red Blood Count 2.89 10^6/ul (4.00-5.40); Red Cell Distribution Width 17 % (10.5-15); White Blood Count 5.1 10^3/ul (3.5-10.8)
[2018-04-21 06:27] LABS: INR 1.29 (0.77-1.02)
[2018-04-21 06:39] LABS: Albumin 3.2 g/dL (3.2-5.2); Albumin/Globulin Ratio 1.1 (1-3); BUN/Creatinine Ratio 21.1 (8-20); Calcium 8.8 mg/dL (8.6-10.3); EGFR African American 130.5 (>60); EGFR Non-African American 107.8 (>60); Globulin 2.8 g/dL (2-4); Potassium 4.1 mmol/L (3.5-5.0); Total Bilirubin 0.2 mg/dL (0.2-1.0)
[2018-04-21 07:04] LABS: Immature Granulocytes 9 % (0-9); Lymphocytes % 43 %; Metamyelocytes % 5 % (0-2); Monocytes % 6 %; Myelocytes % 2 % (0-1); Neutrophil % 42 %; Polychromasia 1+
[2018-04-21 07:06] LABS: ABS Neutrophils 2.601 10^3/ul (1.5-7.7)
[2018-04-21] MEDS: Nicotine PATCH 21 MG/24 HR* PATCH TRANSDERM SCH (09:30)
[2018-04-21] MEDS: Magnesium Oxide TAB* 400 MG PO SCH ×2 (09:31→17:51)
[2018-04-21] MEDS: Docusate CAP* 100 MG PO SCH (09:31)
[2018-04-21] MEDS: predniSONE TAB* 20 MG PO SCH (09:32)
[2018-04-21] MEDS: Famotidine TAB* 20 MG PO SCH (09:32)
[2018-04-21] MEDS: Potassium Chlor TAB* 20 MEQ TAB.ER PO SCH (09:32)
[2018-04-21] MEDS: Folic Acid TAB* 1 MG PO SCH (09:32)
[2018-04-21] MEDS: Hydroxychloroquine TAB* 200 MG PO SCH (09:32)
[2018-04-21] MEDS: cefTRIAXone(*) 1 GM in NS 0.9% 50 ML* 50 ML IVPB SCH (09:33)
[2018-04-21] MEDS: Morphine ORAL.SOLN 10 mg* 2 MG/ML UDC 5 ml PO PRN (13:22)
--- NOTE | 2018-04-21 17:04 | DS ---
- Discharge Summary Admit Date: 04/14/18 Discharge Date: 04/21/18 Discharge Diagnosis: 1. Sepsis 2/2 Strep. Pneumo: felt 2/2 underlying pneumonia with marked improvement and now stable for discharge, however positive cultures from port therefore concerning for seeding and will plan sterilization 2. COPD and PNA: improving, abx. As above 3. Pancytopenia 2/2 chemotherapy: resolving, consider dose reduction with tx. resumption 4. PE (2009 unprovoked) and Factor V Leiden heterozygote: cont. Coumadin 5. Chronic Venous Insufficiency: compression stockings recommended 6. NSCLC: s/p C3 Carbo/Pemetrexed (Pembrolizumab on hold d/t immune mediated dermatitis), resume tx. C4 after completion of abx., consideration of dose reduction at that time and plan restaging scans after C4. Resume prednisone taper @ 30 mg Discharge Medications: 1. Ceftriaxone 1 gram IV daily through 05/01/18 2. Heparin 500 u port lock daily 3. Prednisone taper: 30 mg daily 04/22-04/26, 20 mg daily 04/27-05/01, 10 mg 05/02 daily until otherwise directed 4. KCl 20 mEq PO BID 5. Nicotine patch 21 mcg daily 6. Nicotine lozenge 4 mg q2hrs PRN cravings 7. Trazodone 100 mg PO qHS PRN sleep 8. Orphenadrine Citrate 100 mg PO TID PRN muscle spasms 9. Spironolactone 25 mg PO BID 10. Aripiprazole 5 mg PO qHS 11. Hydroxychloroquine 200 mg PO daily with meal 12. Baclofen 20 mg PO daily PRN spasms 13. Colace 100 mg PO BID 14. Pravastatin 10 mg PO qHS 15. Duloxetine 60 mg PO qPM 16. Diazepam 5 mg PO TID PRN anxiety 17. Morphine ER 30 mg PO q8hrs 18. Morphine 15 mg PO q4hrs PRN pain 19. Warfarin 4 mg PO qPM 20. Bevespi (Glycopyrrolate/Formoterol) 1 puff inh. BID 21. Famotidine 40 mg PO daily 22. Folic Acid 1 mg PO daily 23. Ondansetron 4 mg PO q4hrs PRN nausea 24. Prochlorperazine 10 mg PO q6hrs PRN nausea 25. Senna 1-2 tabs daily PRN constipation 26. MgOx 400 mg PO BID with meals Hospital Course: Please see admission note for full H&P, however briefly, Ms. Aguiar is well known to our service due to her unfortunate diagnosis of metastatic non-small cell lung cancer on palliative treatment with Carboplatin, Pemetrexed, and Pembrolizumab. 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 She presented to the office on 04/14 for routine follow-up s/p cycle 3 (day 11) feeling very weak, with a fever. She was admitted for work-up with question of viral syndrome, she was not neutropenic. She was hypotensive in the office and was started on stress dose steroids and received aggressive hydration. On 04/15 she remained hypotensive and had continued SOB with 2 of 4 blood culture bottles (obtained in the office) revealing Gram Positive Cocci (resembling strep). She was started empirically on Cefepime due to mild leukopenia and recent chemotherapy. Later that day results confirmed strep. Pneumo. Ms. Aguiar and her caregivers complained of some poor memory and she noted blurred vision therefore a CT of the brain was obtained on 04/16 that was negative. A TTE obtained on 04/18 was negative for valve vegetation and a repeat chest x-ray showed improvement of infiltrates. Repeat cultures drawn 04/18 are all negative. Antibiotics were stepped down on 04/18 to Ceftriaxone with plan for IV abx. via port x14 days. Insurance authorization has delayed discharge until today. Today she feels very well and has marked improvement in her breathing, she is very anxious to get home. She will discharged with plan for Cetriaxone through 05/01/18 (today being day 4 of 14), [facility] will assist with home abx. She will follow-up with our office on 05/03 with plan to resume chemo as well. >40 min. spent with >50% face to face counseling
[2018-04-21 17:25] VITALS: BP 105/70
[2018-04-21] MEDS: Warfarin TAB(*) 4 MG PO SCH (17:51)
[2018-04-21] MEDS: DULoxetine DR CAP* 60 MG CAP.DR PO SCH (17:51)
== END 2018-04-21 19:30 | disposition home health service (06) | DRG 720 ==
LOC: MEDTELE 18:05 → OBSVTOIN 04-16 15:16 → MED 04-20 19:30
PROVIDERS: ADMIT Internal Medicine Hematology & Oncology; ATTEND Internal Medicine Hematology & Oncology
DX: A40.3 Sepsis due to Streptococcus pneumoniae (principal); D61.810 Antineoplastic chemotherapy induced pancytopenia; J13 Pneumonia due to Streptococcus pneumoniae; C34.90 Malignant neoplasm of unspecified part of unspecified bronchus or lung; C79.9 Secondary malignant neoplasm of unspecified site; D68.51 Activated protein C resistance; J44.1 Chronic obstructive pulmonary disease with (acute) exacerbation; E78.5 Hyperlipidemia, unspecified; F41.9 Anxiety disorder, unspecified; G89.4 Chronic pain syndrome; F32.9 Major depressive disorder, single episode, unspecified; I10 Essential (primary) hypertension; G47.30 Sleep apnea, unspecified; M32.9 Systemic lupus erythematosus, unspecified; F17.210 Nicotine dependence, cigarettes, uncomplicated; T45.1X5A Adverse effect of antineoplastic and immunosuppressive drugs, initial encounter; Y92.239 Unspecified place in hospital as the place of occurrence of the external cause; I87.2 Venous insufficiency (chronic) (peripheral); J40 Bronchitis, not specified as acute or chronic; Z66 Do not resuscitate; Z51.5 Encounter for palliative care; R79.1 Abnormal coagulation profile; Z72.89 Other problems related to lifestyle; Z80.3 Family history of malignant neoplasm of breast; Z80.6 Family history of leukemia; Z86.711 Personal history of pulmonary embolism; Z90.89 Acquired absence of other organs; Z88.5 Allergy status to narcotic agent; Z91.048 Other nonmedicinal substance allergy status; Z90.711 Acquired absence of uterus with remaining cervical stump; Z79.01 Long term (current) use of anticoagulants; Z80.1 Family history of malignant neoplasm of trachea, bronchus and lung; E83.42 Hypomagnesemia
CPT/HCPCS: 36415; 70460; 71046; 80053; 83735; 85025; 85610; 85652; 86140; 87040; 87899; 93306; 99223; 99232; 99233; 99239; A9270-GY; J0692; J0696; J1642; J2930; J3475; J7512; Q9967

== ENCOUNTER 2018-08-18 21:08 | Inpatient (IN) | payer OTHER ==
[2018-08-18] MEDS ORDERED: metroNIDAZOLE IV 500 MG/100ML* 500 MG/100 ML BAG IVPB ONE (21:16)
[2018-08-18] MEDS ORDERED: NS 0.9% 1000 ML** 1,000 ML IV.FLUID IV ONE (21:16)
[2018-08-18] MEDS ORDERED: Cefepime(*) 2 GM in NS 0.9% 50 ML* 50 ML IVPB ONE (21:16)
--- NOTE | 2018-08-18 21:17 | ED ---
HPI Febrile Illness - HPI Summary HPI Summary: This pt is a 62 y/o female presenting to [facility] via EMS for chills and fever since tonight. Pt reports she had chemotherapy for stage 4 lung cancer 2 days ago. Pt states she took her temperature today and it was 101.9F. She also notes she has nausea, cough, and redness on right lower extremity that is painful. Denies abd pain, chest pain. Pt reports a couple of months ago she had pneumonia that turned into sepsis. Her oncologist is Dr. Bragg. - History of Current Complaint Time Seen by Provider: 08/18/18 21:11 Hx Obtained From: Patient Onset/Duration: Started Hours Ago, Still Present Timing: Lasting Hours Temperature: 38.8 C Current Severity: Moderate Pain Intensity: 8 - chronic back pain Pain Scale Used: 0-10 Numeric Aggravating Factors: Nothing Alleviating Factors: Nothing Associated Signs and Symptoms: Chills, Cough, Nausea, Other: - POSITIVE: right leg redness. NEGATIVE: abd pain, chest pain. - Additional Pertinent History Primary Care Physician: ALBER - Allergy/Home Medications Allergies/Adverse Reactions: Allergies Allergy/AdvReac Type Severity Reaction Status Date / Time aspirin Allergy Intermediate on Verified 08/18/18 21:23 Coumadin, Hx of GI bleed codeine Allergy Intermediate makes pt Verified 08/18/18 21:23 jittery Adhesive Tape Allergy Mild Rash Verified 08/18/18 21:23 Home Medications: Home Medications Potassium Chlor TAB* [Potassium Chlor TAB 20 MEQ*] 10 meq PO BID 08/18/18 [ History Confirmed 08/18/18] PMH/Surg Hx/FS Hx/Imm Hx Endocrine/Hematology History: Reports: Hx Anticoagulant Therapy - coumadin, Hx Blood Disorders - Leiden factor V, Hx Systemic Lupus Erythematosus, Hx Anemia Denies: Hx Diabetes, Hx Thyroid Disease Cardiovascular History: Reports: Hx Embolism - DVT and PE 2005, Hx Hypercholesterolemia, Hx Peripheral Vascular Disease, Other Cardiovascular Problems/Disorders - DVT TO LEGS/CLOT TO LUNG-2005 Denies: Hx Hypertension, Hx Pacemaker/ICD Respiratory History: Reports: Hx Asthma, Hx Chronic Obstructive Pulmonary Disease (COPD), Hx Pneumonia - 2018, Hx Pulmonary Embolism - 2014, Hx Seasonal Allergies, Hx Sleep Apnea, Other Respiratory Problems/Disorders - hx PE, poss. COPD GI History: Reports: Hx Gastrointestinal Bleed, Hx Obstructive Bowel, Hx Ulcer - hx of GI bleed- -5 years ago, Other GI Disorders - PROBLEMS WITH CONSTIPATION / HISTORY OF GI BLEED-2012 History: Denies: Hx Renal Disease Musculoskeletal History: Reports: Hx Arthritis - r/t lupus, Hx Rheumatoid Arthritis - vs. osteo, Hx Back Problems, Other Musculoskeletal History - STENOSIS/spinal stimulator, discectomy Sensory History: Reports: Hx Contacts or Glasses, Hx Hearing Problem Denies: Hx Hearing Aid Opthamlomology History: Reports: Hx Contacts or Glasses Neurological History: Reports: Hx Headaches, Other Neuro Impairments/Disorders - LUPUS Denies: Hx Dementia, Hx Seizures Psychiatric History: Reports: Hx Anxiety - ON MEDICATION FOR, Hx Depression - ON MEDICATION FOR, Other Psychiatric Issues/Disorders Denies: Hx Substance Abuse - Cancer History Cancer Type, Location and Year: lupus, lung Hx Chemotherapy: Yes Hx Radiation Therapy: No - Surgical History Surgery Procedure, Year, and Place: L4-5 diskectomy;hysterectomy;dorsal column stimulator; appendectomy;, polypectomy GI; resection damaged tissue right forearm Hx Anesthesia Reactions: No - Immunization History Date of Tetanus Vaccine: Unknown Infectious Disease History: Reports: Hx Hepatitis - hepatitis b, History Other Infectious Disease - Herpes Denies: Hx Human Immunodeficiency Virus (HIV) - Family History Known Family History: Negative: Hypertension, Diabetes, Blood Disorder - Social History Alcohol Use: None Alcohol Amount: 1 highball a day- will not drink today Hx Substance Use: No Substance Use Type: Reports: None Substance Use Comment - Amount & Last Used: oxycodone Hx Tobacco Use: Yes Smoking Status (MU): Current Every Day Smoker Type: Cigarettes, eCigarettes Amount Used/How Often: 12/02/17 - DOWN TO 12 CIGS DAILY Length of Time of Smoking/Using Tobacco: a few a day with ecigs Have You Smoked in the Last Year: Yes Review of Systems Positive: Fever, Chills Negative: Chest Pain Positive: Cough Positive: Nausea. Negative: Abdominal Pain Musculoskeletal: Other - POSITIVE: chronic back pain Skin: Other - POSITIVE: redness on right leg All Other Systems Reviewed And Are Negative: Yes Physical Exam - Summary Physical Exam Summary: Appearance: Well-appearing, Well-nourished, lying in bed comfortably Skin: Warm, dry, Cellulitis on right lower extremity extending from a couple of inches below the knee into the ankle. Healing skin wound on her moe. Eyes: sclera anicteric, no conjunctival pallor ENT: mucous membranes moist, pharynx appears normal Neck: Supple, nontender Respiratory: Clear to auscultation, no signs of respiratory distress Cardiovascular: Normal S1, S2. No murmurs. Normal distal pulses in tibial and radial bilaterally. Abdomen: Soft, nontender, normal active bowel sounds present Musculoskeletal: Normal, Strength/ROM Intact Neurological: A&Ox3, awake and alert, mentation is normal, speech is fluent and appropriate Psychiatric: affect is normal, does not appear anxious or depressed Triage Information Reviewed: Yes Vital Signs On Initial Exam: Initial Vitals Temp Pulse Resp BP Pulse Ox 102.0 F 94 20 102/70 97 08/18/18 21:11 08/18/18 21:11 08/18/18 21:11 08/18/18 21:11 08/18/18 21:11 Vital Signs Reviewed: Yes Diagnostics - Laboratory Result Diagrams: 08/19/18 05:18 08/19/18 05:18 Lab Statement: Any lab studies that have been ordered have been reviewed, and results considered in the medical decision making process. - Radiology Chest XR Radiology Interpretation Completed By: ED Physician Summary of Radiographic Findings: No acute process. Course/Dx - Course Assessment/Plan: Pt is a 62 y/o female presenting to [facility] via EMS for chills and fever since tonight. Pt had chemotherapy for stage 4 lung cancer 2 days ago on 08/16. Pt states her temperature today was 101.9F. She also notes she has nausea, cough, and redness on right lower extremity that is painful. Lab results remarkable for WBC of 13.9, potassium of 3.1, glucose of 68, lactic acid of 4.0, magnesium of 1.3. Chest XR shows no acute process. In the ED course the pt was given IV fluids, Vancomycin, Cefepime, Flagyl, morphine. Discussed the case with Dr. Mo, hospitalist, who accepted the pt for admission. - Diagnoses Provider Diagnoses: Cellulitis, Sepsis, Septic shock - Provider Notifications Discussed Care Of Patient With: Christoph Mo - hospitalist Time Discussed With Above Provider: 23:42 Instructed by Provider To: Admit As Inpatient - Critical Care Time Critical Care Time: 30-74 min - 62-year-old immunosuppressed woman with cellulitis complicated by severe sepsis and septic shock requiring repeated IV fluid boluses and IV vasopressors Discharge - Sign-Out/Discharge Documenting (check all that apply): Patient Departure - Admit to [facility] All imaging exams completed and their final reports reviewed: No Patient Received Moderate/Deep Sedation with Procedure: No - Discharge Plan Condition: Stable Disposition: ADMITTED TO [facility] - Billing Disposition and Condition Condition: STABLE Disposition: Admitted to [facility] - Attestation Statements Document Initiated by Valerie: Yes Documenting Scribe: Janie Alexander Provider For Whom Valerie is Documenting (Include Credential): Tanner Trujillo MD [employer] Attestation: Janie Guerrero scribed for Tanner Trujillo MD on 08/19/18 at 0641. Scribe Documentation Reviewed: Yes Provider Attestation: The documentation as recorded by the Janie zhang accurately reflects the service I personally performed and the decisions made by Tanner quigley MD Status of Scribe Document: Viewed
[2018-08-18] MEDS ORDERED: NS 0.9% 50 ML* 50 ML ONE (21:50)
[2018-08-18] MEDS ORDERED: Morphine 4 MG/ML VIAL (1 ml) 4 MG/ML VIAL IV ONE (21:55)
[2018-08-18 21:59] LABS: ABS Lymphocytes 0.6 10^3/ul (1.0-4.8); ABS Neutrophils 13.3 10^3/ul (1.5-7.7); Hematocrit 36 % (35-47); Hemoglobin 12.4 g/dL (12.0-16.0); Mean Corpuscular HGB Conc 35 g/dL (31-36); Mean Corpuscular Hemoglobin 35 pg (27-31); Mean Corpuscular Volume 102 fL (80-97); Mean Platelet Volume 7.3 fL (7.4-10.4); Platelet Count 296 10^3/uL (150-450); Red Blood Count 3.54 10^6 /uL (3.70-4.87); Red Cell Distribution Width 16 % (10-15); White Blood Count 13.9 10^3/uL (3.5-10.8)
[2018-08-18] MEDS ORDERED: Vancomycin(*) 750 MG in NS 0.9% 250 ML* 250 ML IVPB ONE (22:00)
[2018-08-18] MEDS ORDERED: Vancomycin(*) 1,000 MG VIAL IVPB SCH (22:00)
[2018-08-18] MEDS ORDERED: Cefepime* 2 GM in Dextrose 50mL (Duplex) IV ONE (22:00)
[2018-08-18 22:16] LABS: Albumin 4.8 g/dL (3.2-5.2); Albumin/Globulin Ratio 1.6 (1-3); BUN/Creatinine Ratio 19.1 (8-20); Calcium 9.8 mg/dL (8.6-10.3); EGFR African American 61.1 (>60); EGFR Non-African American 50.5 (>60); Potassium 3.1 mmol/L (3.5-5.0); Total Bilirubin 0.7 mg/dL (0.2-1.0); Total Protein 7.8 g/dL (6.4-8.9)
[2018-08-18 22:19] LABS: Activated Partial Thrombo Time 24.4 seconds (26.0-38.0); INR 0.98 (0.82-1.09)
[2018-08-18] MEDS ORDERED: NS 0.9% 1000 ML** 1,000 ML IV ONE (23:49)
[2018-08-18] MEDS ORDERED: NS 0.9% 250 ML* 250 ML ONE (23:55)
[2018-08-19] MEDS ORDERED: Diazepam TAB(*) 5 MG PO PRN (00:28)
[2018-08-19] MEDS ORDERED: Albuterol HFA INHALER* 8 gm MDI INH PRN (00:28)
[2018-08-19] MEDS ORDERED: Norepinephrine 16MCG/ML IVPRE* 4,000 MCG/250 ML BAG IV ONE (00:35)
[2018-08-19] MEDS: Norepinephrine 16MCG/ML IVPRE* 4,000 MCG/250 ML BAG IV SCH ×3 (00:36→06:44)
--- NOTE | 2018-08-19 00:46 | HP ---
History of Present Illness - History of Present Illness Reason for Visit: left leg pain History of Present Illness: PCP: Dr. Mar HPI: Patient is 62 year old woman with stage 4 lung cancer, who presented to emergency department with progressive pain in the right lower extremity, and fevers to 101.9 at home. She states she scraped her RT moe on a "cat pole" about 3 days ago, and has had spreading redness on right leg since then. She also states she has pre-existing peripheral arterial disease of both legs. Patient is under active treatment for lung cancer with metastasis to the peritoneum with Dr. Bragg, receiving chemotherapy consisting of Carbo/pem/pem as recently as 3 days ago. In the ER, she was recognized to have sepsis, was given 2.5 liters NS fluid resuscitation, had blood cultures taken. We were asked to admit patient. - Past Medical History Cardiac: HTN, Valve insufficiency, Other - PAD Pulmonary: COPD - 2 liter/min O2 dependent, Other - history of PE, Factor 5 Leiden positive Gastrointestinal: GI bleed - h/o while on aspirin and warfarin Psych: Anxiety, Depression Musculoskeletal: Chronic low back pain Rheumatologic: Other - systemic lupus - Past Surgical History Past Surgical History: Appendectomy, Cataract Removal, Hysterectomy - partial, Other - L4-5 discectomy, lumbar laminectomy, dorsal column stimulator, Tonsillectomy - Past Family History Family History: Cancer - sister with lung/brain cancer, mother with breast cancer - Past Social History Smoke: <1 pack per day Occupation: disabled Alcohol: None Drugs: Heroin - history of Lives: Alone - , 1 child, friend Consuelo Samayoa is HCP Domestic Violence: Negative Review of Systems - Measurements Intake and Output: Intake and Output Last 24 Hours 08/16/18 08/17/18 08/18/18 08/19/18 06:59 06:59 06:59 06:59 Intake Total 1650 Balance 1650 Weight 48.534 kg Intake: IV Fluids 1650 - Review of Systems Constitutional Symptoms: Positive: Weight Loss, Fever Dermatology: Positive: Rash HEENT: Positive: Normal Eyes: Positive: Normal Thyroid: Positive: Normal Pulmonary: Positive: Cough, COPD Negative: Hemoptysis Cardiology: Positive: Peripheral Vascular Dis, Claudication Gastroenterology: Positive: Normal, Abdominal Pain Genital - Urinary: Positive: Normal Genitourinay - Female: Positive: Menopause Musculoskeletal: Positive: Low Back Pain Endocrinology: Positive: Normal Hematologic/Lymphatic: Positive: Anemia, Use of Anticoagulant Neurology: Positive: Normal Psychiatry: Positive: Depression, Anxiety Allergic/Immunologic: Positive: Immunocompromise Objective Active Medications: Ambulatory Orders traZODone TAB* [Desyrel TAB*] 100 mg PO BEDTIME 12/16/11 Orphenadrine Citrate 100 mg PO TID 09/01/12 Spironolactone TAB* [Aldactone TAB 25 MG*] 25 mg PO BID 02/21/14 ARIPiprazole TAB* [Abilify TAB*] 5 mg PO BEDTIME 05/16/14 Hydroxychloroquine TAB* [Plaquenil TAB*] 200 mg PO DAILY WITH MEAL 04/22/16 Baclofen TAB* [Lioresal TAB*] 20 mg PO DAILY PRN 09/21/16 Docusate CAP* [Colace Cap*] 100 mg PO BID 09/21/16 Pravastatin (NF) [Pravachol (NF)] 10 mg PO BEDTIME 09/21/[address] CAP* [Cymbalta CAP*] 60 mg PO QPM 06/26/17 Diazepam TAB(*) [Valium TAB(*)] 5 mg PO TID PRN 06/26/17 Morphine TAB Extended Rel(*) [Ms Contin(*)] 30 mg PO Q8H 06/26/17 Warfarin TAB(*) [Coumadin TAB(*)] 4 mg PO QPM 06/26/17 Famotidine [Pepcid] 40 mg PO DAILY 04/14/18 Folic Acid 1 mg PO DAILY 04/14/18 Ondansetron HCl [Zofran 4 MG TAB] 4 mg PO Q4HR PRN 04/14/18 Prochlorperazine Maleate 10 mg PO Q6HR PRN 04/14/18 Sennosides [Senna] 8.6 mg PO DAILY PRN 04/14/18 Magnesium Oxide TAB* [MagOx 400 TAB*] 400 mg PO BID WITH MEALS #60 tab Albuterol HFA INHALER* [Ventolin HFA Inhaler*] 1 puff INH Q4HR PRN 05/05/18 Heparin FLUSH PORT (IVAD) 5 ml FLUSH SEE INSTRUCTIONS 05/05/18 Morphine Sulfate [Ms Contin] 60 mg PO Q8H PRN 05/05/18 Potassium Chlor TAB* [Potassium Chlor TAB 20 MEQ*] 10 meq PO BID 08/18/18 Vital Signs - 8 hr 08/18/18 08/18/18 08/18/18 21:11 21:15 21:16 Temperature 38.9 C Pulse Rate 94 93 92 Respiratory 20 19 19 Rate Blood Pressure 102/70 102/70 (mmHg) O2 Sat by Pulse 97 93 97 Oximetry 08/18/18 08/19/18 08/19/18 23:51 00:00 00:04 Temperature Pulse Rate 98 95 97 Respiratory 23 17 22 Rate Blood Pressure 80/42 (mmHg) O2 Sat by Pulse 97 98 99 Oximetry 08/19/18 08/19/18 00:06 00:21 Temperature Pulse Rate 104 97 Respiratory 25 23 Rate Blood Pressure 74/40 73/39 (mmHg) O2 Sat by Pulse 98 100 Oximetry Oxygen Devices in Use Now: Nasal Cannula Appearance: alert, no respiratory distress Eyes: No Scleral Icterus Ears/Nose/Mouth/Throat: NL Teeth, Lips, Gums, - - dry mouth Neck: NL Appearance and Movements; NL JVP Respiratory: Symmetrical Chest Expansion and Respiratory Effort, - - port LT upper chest, diminished breath sounds throughout Cardiovascular: NL Sounds; No Murmurs; No JVD, RRR Abdominal: NL Sounds; No Tenderness; No Distention, No Hepatosplenomegaly Lymphatic: No Cervical Adenopathy Extremities: - - Bright red erythema RT moe, calf, with 1 cm eschar in center ; Both legs have absent PT/DP pulses, atrophic PAD changes Skin: - - as above Neurological: Alert and Oriented x 3 Lines/Tubes/Other Access: Clean, Dry and Intact Peripheral IV Nutrition: Taking PO's Result Diagrams: 08/19/18 05:18 08/19/18 05:18 Additional Lab and Data: Laboratory Tests 08/18/18 08/18/18 08/18/18 21:48 21:48 21:48 INR (Anticoag Therapy) 0.98 APTT 24.4 L Glucose 68 L Lactic Acid 4.0 H* Calcium 9.8 Magnesium AST 20 ALT 15 Troponin I 0.00 08/19/18 08/19/18 00:44 00:44 INR (Anticoag Therapy) APTT Glucose Lactic Acid 2.5 H* Calcium Magnesium 1.3 L AST ALT Troponin I 0.01 Diagnostic Imaging: CXR: negative EKG Data: sinus tachycardia, Qs in III, aVF, old IMI Assess/Plan/Problems-Billing Assessment: 62 year old woman with RLE cellulitis, septic shock, in the setting of lung cancer - Patient Problems (1) Severe sepsis Current Visit: Yes Status: Acute Priority: High Code(s): A41.9 - SEPSIS, UNSPECIFIED ORGANISM; R65.20 - SEVERE SEPSIS WITHOUT SEPTIC SHOCK SNOMED Code( s): 53590796 Comment: Patient will be admitted to ICU Norepinephrine drip initiated at 5 mcg/kg/min Continued resucitation with NS required. Will continue cefepime, vanco, flagyl, follow blood and urine cultures to narrow coverage. (2) Lung cancer Current Visit: Yes Status: Acute Priority: Medium Code(s): C34.90 - MALIGNANT NEOPLASM OF UNSP PART OF UNSP BRONCHUS OR LUNG SNOMED Code(s): 584943075 Comment: -Patient immunosuppressed w/ recent chemotherapy and active malignancy -Discussed case with Dr. Salinas, she will consult. (3) Hypokalemia Current Visit: Yes Status: Acute Priority: Medium Code(s): E87.6 - HYPOKALEMIA SNOMED Code(s): 14454126 Comment: Potassium will be repleted intravenously and rechecked in AM (4) DVT prophylaxis Current Visit: No Status: Acute Priority: Medium Code(s): FTV1089 - SNOMED Code(s): 031043842 Comment: - High risk of DVT, will start lovenox - Warfarin continued, will stop lovenox when she attains therapeutic INR. Status and Disposition: inpatient
[2018-08-19] MEDS ORDERED: Vancomycin(*) 0 MG in NS 0.9% 250 ML* 250 ML IVPB SCH (01:00)
[2018-08-19] MEDS ORDERED: Morphine TAB Extended Release (*) 15 MG TAB.ER PO SCH (01:00)
[2018-08-19] MEDS ORDERED: NS 0.45% KCl 20 Meq 1000 ML* 1,000 ML IV SCH (01:00)
[2018-08-19 01:13] LABS: Troponin I 0.01 ng/mL (<0.04)
[2018-08-19 01:24] LABS: Magnesium 1.3 mg/dL (1.9-2.7)
[2018-08-19] MEDS ORDERED: Vancomycin per Pharmacy* NOTE FOLLOW UP PRN (01:40)
[2018-08-19] MEDS: NS 0.9% w/ 20 Meq KCL 1000 ML* 1,000 ML IV SCH ×2 (01:52→08:06)
[2018-08-19] MEDS ORDERED: metroNIDAZOLE IV 500 MG/100ML* 500 MG/100 ML BAG IVPB SCH (02:00)
[2018-08-19] MEDS: Enoxaparin(*) 40 MG/0.4 ML SYR SUBCUT SCH ×2 (02:02→20:49)
[2018-08-19] MEDS: HYDROmorphone INJ* 0.5 MG/0.5 ML SYRINGE IV SLOW PU PRN ×2 (02:03→23:26)
[2018-08-19] MEDS ORDERED: Magnesium Sulfate IV* 3 GM in NS 0.9% 100 ML* 100 ML IVPB ONE (02:30)
[2018-08-19 04:41] LABS: Urine Appearance Cloudy; Urine Bilirubin Negative (Negative); Urine Blood Negative (Negative); Urine Color Yellow; Urine Glucose Negative (Negative); Urine Ketones Negative (Negative); Urine Nitrite Negative (Negative); Urine Protein Negative (Negative); Urine Specific Gravity 1.008 (1.010-1.030); Urine Urobilinogen Negative (Negative)
[2018-08-19 05:26] LABS: ABS Eosinophils 0.1 10^3/ul (0-0.6); ABS Monocytes 0.1 10^3/ul (0-0.8); ABS Neutrophils 19.4 10^3/ul (1.5-7.7); Eosinophil % 0.3 %; Hematocrit 35 % (35-47); Hemoglobin 11.6 g/dL (12.0-16.0); Lymphocyte % 4.8 %; Mean Corpuscular HGB Conc 33 g/dL (31-36); Mean Corpuscular Hemoglobin 34 pg (27-31); Mean Corpuscular Volume 103 fL (80-97); Mean Platelet Volume 7.3 fL (7.4-10.4); Platelet Count 222 10^3/uL (150-450); Red Blood Count 3.36 10^6 /uL (3.70-4.87); Red Cell Distribution Width 16 % (10-15); White Blood Count 20.5 10^3/uL (3.5-10.8)
[2018-08-19 05:44] LABS: BUN/Creatinine Ratio 17.4 (8-20); C Reactive Protein 53.88 mg/L (<8.01); Calcium 7.7 mg/dL (8.6-10.3); EGFR African American 54.7 (>60); EGFR Non-African American 45.2 (>60); Potassium 3.7 mmol/L (3.5-5.0)
[2018-08-19] MEDS: Morphine TAB Extended Release (*) 30 MG TAB.ER PO SCH ×3 (06:14→21:49)
[2018-08-19] MEDS: metroNIDAZOLE IV 500 MG/100ML* 500 MG/100 ML BAG IVPB SCH ×3 (06:14→22:28)
[2018-08-19] MEDS: Potassium Chlor TAB* 10 MEQ TAB.ER PO SCH ×2 (08:46→20:51)
[2018-08-19] MEDS: Docusate CAP* 100 MG PO SCH ×2 (08:46→20:51)
[2018-08-19] MEDS: Famotidine TAB* 20 MG PO SCH (08:46)
[2018-08-19] MEDS: Folic Acid TAB* 1 MG PO SCH (08:46)
[2018-08-19] MEDS: [UNRECOGNIZED DRUG - OTHER] PO SCH ×3 (08:47→21:46)
[2018-08-19] MEDS ORDERED: Acetaminophen TAB* 325 MG PO ONE (09:00)
[2018-08-19] MEDS ORDERED: Norepinephrine 16MCG/ML IVPRE* 4,000 MCG/250 ML BAG IV SCH (10:26)
--- NOTE | 2018-08-19 11:09 | PN ---
Progress Note - Progress Note Date of Service: 08/19/18 SOAP: Subjective: [Paris was admitted overnight to ICU with septic shock secondary to cellulitis. She reports that she hit her moe on the cat post in her home a couple of days ago and yesterday noted rapidly progressive erythema with fever. She was hypotensive and febrile on presentation. This am, she reports feeling very poorly. No c/o dyspnea or cough. No pain in leg.] Objective: [ Vital Signs: Temp Pulse Resp BP Pulse Ox 102.1 F 107 23 115/67 97 08/19/18 08:00 08/19/18 07:00 08/19/18 07:00 08/19/18 07:00 08/19/18 07:00 Laboratory Results - last 24 hr 08/18/18 08/18/18 08/18/18 21:48 21:48 21:48 WBC 13.9 H RBC 3.54 L Hgb 12.4 Hct 36 MCV 102 H MCH 35 H MCHC 35 RDW 16 H Plt Count 296 MPV 7.3 L Neut % (Auto) 95.6 Lymph % (Auto) 4.0 [place] % (Auto) 0.3 Eos % (Auto) 0.0 Baso % (Auto) 0.1 Absolute Neuts (auto) 13.3 H Absolute Lymphs (auto) 0.6 L Absolute Monos (auto) 0.0 Absolute Eos (auto) 0.0 Absolute Basos (auto) 0.0 Absolute Nucleated RBC 0.0 Nucleated RBC % 0.0 INR (Anticoag Therapy) 0.98 APTT 24.4 L Sodium 137 Potassium 3.1 L Chloride 90 L Carbon Dioxide 35 H Anion Gap 12 H BUN 21 Creatinine 1.10 H Est GFR ( Amer) 61.1 Est GFR (Non-Af Amer) 50.5 BUN/Creatinine Ratio 19.1 Glucose 68 L Lactic Acid Calcium 9.8 Magnesium Total Bilirubin 0.70 AST 20 ALT 15 Alkaline Phosphatase 77 Troponin I 0.00 C-Reactive Protein Total Protein 7.8 Albumin 4.8 Globulin 3.0 Albumin/Globulin Ratio 1.6 Urine Color Urine Appearance Urine pH Ur Specific [place] Urine Protein Urine Ketones Urine Blood Urine Nitrate Urine Bilirubin Urine Urobilinogen Ur Leukocyte Esterase Urine Glucose 08/18/18 08/19/18 08/19/18 21:48 00:44 00:44 WBC RBC Hgb Hct MCV MCH MCHC RDW Plt Count MPV Neut % (Auto) Lymph % (Auto) [place] % (Auto) Eos % (Auto) Baso % (Auto) Absolute Neuts (auto) Absolute Lymphs (auto) Absolute Monos (auto) Absolute Eos (auto) Absolute Basos (auto) Absolute Nucleated RBC Nucleated RBC % INR (Anticoag Therapy) APTT Sodium Potassium Chloride Carbon Dioxide Anion Gap BUN Creatinine Est GFR ( Amer) Est GFR (Non-Af Amer) BUN/Creatinine Ratio Glucose Lactic Acid 4.0 H* 2.5 H* Calcium Magnesium 1.3 L Total Bilirubin AST ALT Alkaline Phosphatase Troponin I 0.01 C-Reactive Protein Total Protein Albumin Globulin Albumin/Globulin Ratio Urine Color Urine Appearance Urine pH Ur Specific [place] Urine Protein Urine Ketones Urine Blood Urine Nitrate Urine Bilirubin Urine Urobilinogen Ur Leukocyte Esterase Urine Glucose 08/19/18 08/19/18 08/19/18 04:30 05:18 05:18 WBC 20.5 H RBC 3.36 L Hgb 11.6 L Hct 35 MCV 103 H MCH 34 H MCHC 33 RDW 16 H Plt Count 222 MPV 7.3 L Neut % (Auto) 94.5 Lymph % (Auto) 4.8 [place] % (Auto) 0.3 Eos % (Auto) 0.3 Baso % (Auto) 0.1 Absolute Neuts (auto) 19.4 H Absolute Lymphs (auto) 1.0 Absolute Monos (auto) 0.1 Absolute Eos (auto) 0.1 Absolute Basos (auto) 0.0 Absolute Nucleated RBC 0.0 Nucleated RBC % 0.0 INR (Anticoag Therapy) APTT Sodium 138 Potassium 3.7 Chloride 103 Carbon Dioxide 27 Anion Gap 8 BUN 21 Creatinine 1.21 H Est GFR ( Amer) 54.7 Est GFR (Non-Af Amer) 45.2 BUN/Creatinine Ratio 17.4 Glucose 98 Lactic Acid Calcium 7.7 L Magnesium Total Bilirubin AST ALT Alkaline Phosphatase Troponin I C-Reactive Protein 53.88 H Total Protein Albumin Globulin Albumin/Globulin Ratio Urine Color Yellow Urine Appearance Cloudy Urine pH 7.0 Ur Specific [place] 1.008 L Urine Protein Negative Urine Ketones Negative Urine Blood Negative Urine Nitrate Negative Urine Bilirubin Negative Urine Urobilinogen Negative Ur Leukocyte Esterase Negative Urine Glucose Negative 08/19/18 05:18 WBC RBC Hgb Hct MCV MCH MCHC RDW Plt Count MPV Neut % (Auto) Lymph % (Auto) [place] % (Auto) Eos % (Auto) Baso % (Auto) Absolute Neuts (auto) Absolute Lymphs (auto) Absolute Monos (auto) Absolute Eos (auto) Absolute Basos (auto) Absolute Nucleated RBC Nucleated RBC % INR (Anticoag Therapy) APTT Sodium Potassium Chloride Carbon Dioxide Anion Gap BUN Creatinine Est GFR ( Amer) Est GFR (Non-Af Amer) BUN/Creatinine Ratio Glucose Lactic Acid 1.9 Calcium Magnesium Total Bilirubin AST ALT Alkaline Phosphatase Troponin I C-Reactive Protein Total Protein Albumin Globulin Albumin/Globulin Ratio Urine Color Urine Appearance Urine pH Ur Specific [place] Urine Protein Urine Ketones Urine Blood Urine Nitrate Urine Bilirubin Urine Urobilinogen Ur Leukocyte Esterase Urine Glucose Albuterol (Ventolin Hfa Inhaler*) 2 puff INH Q4HR PRN PRN Reason: CONGESTION Aripiprazole (Abilify Tab*) 5 mg PO BEDTIME [facility] Diazepam (Valium Tab(*)) 5 mg PO TID PRN PRN Reason: ANXIETY Docusate Sodium (Colace Cap*) 100 mg PO BID [facility] Last Admin: 08/19/18 08:46 Dose: 100 mg Duloxetine HCl (Cymbalta Cap*) 60 mg PO QPM [facility] Enoxaparin Sodium (Lovenox(*)) 40 mg SUBCUT BEDTIME [facility] Last Admin: 08/19/18 02:02 Dose: 40 mg Famotidine (Pepcid Tab*) 40 mg PO DAILY [facility] Last Admin: 08/19/18 08:46 Dose: 40 mg Folic Acid (Folvite Tab*) 1 mg PO DAILY [facility] Last Admin: 08/19/18 08:46 Dose: 1 mg Heparin Sodium (Porcine) (Heparin Flush Port (Ivad)) 5 ml FLUSH DAILY [facility]; Protocol Last Admin: 08/19/18 07:16 Dose: Not Given Hydromorphone HCl (Dilaudid Inj*) 0.5 mg IV SLOW PU Q4H PRN PRN Reason: PAIN Last Admin: 08/19/18 02:03 Dose: 0.5 mg Potassium Chloride/Sodium Chloride (Ns 0.9% W/ 20 Meq Kcl 1000 Ml*) 1,000 mls @ 200 mls/hr IV PER RATE [facility] Last Admin: 08/19/18 08:06 Dose: 200 mls/hr Cefepime HCl (Maxipime 2 Gm In Dextrose Duplex (*)) 2 gm in 50 mls @ 100 mls/ hr IV Q12H [facility] Metronidazole/Sodium Chloride (Flagyl 500 Mg Ivpb*) 500 mg in 100 mls @ 100 mls /hr IVPB Q8H [facility] Last Admin: 08/19/18 06:14 Dose: 100 mls/hr Vancomycin HCl 750 mg/ Sodium (Chloride) 250 mls @ 166.667 mls/hr IVPB Q24H [facility] Norepinephrine Bitartrate (Levophed 16 Mcg/Ml Premix Bag*) 4,000 mcg in 250 mls @ 18.75 mls/hr IV .PER PROTOCOL [facility]; Protocol Morphine Sulfate (Ms Contin(*)) 60 mg PO Q8H PRN PRN Reason: PAIN Morphine Sulfate (Ms Contin(*)) 30 mg PO Q8HR [facility] Last Admin: 08/19/18 06:14 Dose: 30 mg Nft* (Orphenadrine Citrate 100 Mg Tablet) 100 mg PO TID [facility] Last Admin: 08/19/18 08:47 Dose: Not Given Pharmacy Consult (Vancomycin Per Pharmacy*) 1 note FOLLOW UP . PRN PRN Reason: PER PROTOCOL Pharmacy Profile Note (Vancomycin Trough Check) 1 note FOLLOW UP 1530 ONE Stop: 08/21/18 15:31 Potassium Chloride (Klor Con Er Tab*) 10 meq PO BID [facility] Last Admin: 08/19/18 08:46 Dose: 10 meq Pravastatin Sodium (Pravachol (Nf)) 10 mg PO BEDTIME [facility] Trazodone HCl (Desyrel Tab*) 100 mg PO BEDTIME [facility] Warfarin Sodium (Coumadin Tab(*)) 4 mg PO DAILY@1700 [facility]; Protocol Exam: Gen: Acutely ill appearing, opens eyes and converses. Recognizes me HEENT: dry/cracked lips, mildly dry MM CV: RRR, no m/r/g Resp: decreased BS, no w/c/r Abd: soft, nonTTP Ext: erythema and mild edema of RLE, erythema has receeded from lines drawn in ER] Assessment: [62 yo female with metastatic NSCLC on single agent pemetrexed, C9D4, admitted with septic shock secondary to RLE cellulitis.] Plan: [1. Septic shock secondary to RLE cellulitis - 4/4 blood cx growing gram + cocci resembling strep - cont Cefepime/Flagyl until cultures finalized, but can likely drop anaerobic coverage after ~24h - she does have a port in place which may become colonized in the setting of gram + bacteremia, will be vigilant to eval for port colonization as she improves, port can be accessed and used for IV abx administration - cont pressor support per hot dip plater 2. NSCLC, metastatic - C9D4 pemetrexed - not neutropenic, but early in cycle 3. COPD - stable, no acute exacerbation 4. FULL CODE Dispo: cont ICU care, oncology will continue to co-manage
[2018-08-19] MEDS: Cefepime 2 GM in Dextrose(*) 2 GM/50 ML BAG IV SCH ×2 (11:11→21:49)
[2018-08-19] MEDS ORDERED: Ondansetron INJ* 2 MG/ML VIAL ONE (11:14)
[2018-08-19] MEDS ORDERED: Albuterol/Ipratropium NEB.SOL* Albuterol 2.5 MG/Ipratropium 0.5 MG 3 ML INH PRN (11:59)
[2018-08-19] MEDS ORDERED: NS 0.9% w/ 20 Meq KCL 1000 ML* 1,000 ML IV SCH ×2 (12:14→12:23)
--- NOTE | 2018-08-19 12:27 | PN ---
Subjective Date of Service: 08/19/18 Interval History: Seen in Conjunction with Shale Processing Technician: Patient is feeling better than yesterday. Denies rigors, subjective fevers. Patient is somewhat drowsy. Patient has pain in her leg with movement but not at rest. Patient wears O2 intemittently at home. Patient denies CP, N/V, abdominal pain, diarrhea. Patient states she has nto take her prednisone in over a week and has not noticed a difference off it. Family History: Unchanged from Admission Social History: Unchanged from Admission Past Medical History: Unchanged from Admission Objective Active Medications: Albuterol (Ventolin Hfa Inhaler*) 2 puff INH Q4HR PRN PRN Reason: CONGESTION Albuterol/Ipratropium (Duoneb (Albuterol 2.5 Mg/Ipratropium 0.5 Mg)) 1 neb INH Q6H PRN PRN Reason: SOB/WHEEZING Aripiprazole (Abilify Tab*) 5 mg PO BEDTIME [facility] Diazepam (Valium Tab(*)) 5 mg PO TID PRN PRN Reason: ANXIETY Docusate Sodium (Colace Cap*) 100 mg PO BID REPLACED BY [facility] Last Admin: 08/19/18 08:46 Dose: 100 mg Duloxetine HCl (Cymbalta Cap*) 60 mg PO QPM REPLACED BY [facility] Enoxaparin Sodium (Lovenox(*)) 40 mg SUBCUT BEDTIME REPLACED BY [facility] Last Admin: 08/19/18 02:02 Dose: 40 mg Famotidine (Pepcid Tab*) 40 mg PO DAILY REPLACED BY [facility] Last Admin: 08/19/18 08:46 Dose: 40 mg Folic Acid (Folvite Tab*) 1 mg PO DAILY REPLACED BY [facility] Last Admin: 08/19/18 08:46 Dose: 1 mg Heparin Sodium (Porcine) (Heparin Flush Port (Ivad)) 5 ml FLUSH DAILY REPLACED BY [facility]; Protocol Last Admin: 08/19/18 07:16 Dose: Not Given Hydromorphone HCl (Dilaudid Inj*) 0.5 mg IV SLOW PU Q4H PRN PRN Reason: PAIN Last Admin: 08/19/18 02:03 Dose: 0.5 mg Cefepime HCl (Maxipime 2 Gm In Dextrose Duplex (*)) 2 gm in 50 mls @ 100 mls/ hr IV Q12H REPLACED BY [facility] Last Admin: 08/19/18 11:11 Dose: 100 mls/hr Metronidazole/Sodium Chloride (Flagyl 500 Mg Ivpb*) 500 mg in 100 mls @ 100 mls /hr IVPB Q8H REPLACED BY [facility] Last Admin: 08/19/18 06:14 Dose: 100 mls/hr Vancomycin HCl 750 mg/ Sodium (Chloride) 250 mls @ 166.667 mls/hr IVPB Q24H REPLACED BY [facility] Norepinephrine Bitartrate (Levophed 16 Mcg/Ml Premix Bag*) 4,000 mcg in 250 mls @ 18.75 mls/hr IV .PER PROTOCOL [facility]; Protocol Potassium Chloride/Sodium Chloride (Ns 0.9% W/ 20 Meq Kcl 1000 Ml*) 1,000 mls @ 100 mls/hr IV PER RATE REPLACED BY [facility] Morphine Sulfate (Ms Contin(*)) 60 mg PO Q8H PRN PRN Reason: PAIN Morphine Sulfate (Ms Contin(*)) 30 mg PO Q8HR REPLACED BY [facility] Last Admin: 08/19/18 06:14 Dose: 30 mg Nft* (Orphenadrine Citrate 100 Mg Tablet) 100 mg PO TID REPLACED BY [facility] Last Admin: 08/19/18 08:47 Dose: Not Given Pharmacy Consult (Vancomycin Per Pharmacy*) 1 note FOLLOW UP . PRN PRN Reason: PER PROTOCOL Pharmacy Profile Note (Vancomycin Trough Check) 1 note FOLLOW UP 1530 ONE Stop: 08/21/18 15:31 Potassium Chloride (Klor Con Er Tab*) 10 meq PO BID REPLACED BY [facility] Last Admin: 08/19/18 08:46 Dose: 10 meq Pravastatin Sodium (Pravachol (Nf)) 10 mg PO BEDTIME REPLACED BY [facility] Trazodone HCl (Desyrel Tab*) 100 mg PO BEDTIME REPLACED BY [facility] Warfarin Sodium (Coumadin Tab(*)) 4 mg PO DAILY@1700 REPLACED BY [facility]; Protocol Vital Signs - 8 hr 08/19/18 08/19/18 08/19/18 04:30 04:45 05:00 Temperature Pulse Rate 116 112 111 Respiratory 25 21 22 Rate Blood Pressure 108/55 114/56 116/56 (mmHg) O2 Sat by Pulse 97 95 98 Oximetry 08/19/18 08/19/18 08/19/18 05:15 05:30 05:45 Temperature Pulse Rate 112 110 110 Respiratory 19 21 21 Rate Blood Pressure 118/54 113/52 116/58 (mmHg) O2 Sat by Pulse 98 97 97 Oximetry 08/19/18 08/19/18 08/19/18 06:00 06:15 06:30 Temperature Pulse Rate 110 112 110 Respiratory 23 19 24 Rate Blood Pressure 114/58 91/74 124/63 (mmHg) O2 Sat by Pulse 97 98 97 Oximetry 08/19/18 08/19/18 08/19/18 07:00 08:00 11:58 Temperature 102.1 F 99 F Pulse Rate 107 Respiratory 23 Rate Blood Pressure 115/67 (mmHg) O2 Sat by Pulse 97 Oximetry Oxygen Devices in Use Now: Nasal Cannula Appearance: Patient is a 62yo female who appears stated age and is sitting in the bed in [facility]. Eyes: No Scleral Icterus, PERRLA Ears/Nose/Mouth/Throat: NL Teeth, Lips, Gums, Clear Oropharnyx, Mucous Membranes Moist Neck: NL Appearance and Movements; NL JVP, Trachea Midline Respiratory: Symmetrical Chest Expansion and Respiratory Effort, - - Rhonchi in B/L Lower lobes. Cardiovascular: NL Sounds; No Murmurs; No JVD, RRR, - - RLE edema around infection. Abdominal: NL Sounds; No Tenderness; No Distention, No Hepatosplenomegaly Lymphatic: No Cervical Adenopathy Extremities: No Edema, No Clubbing, Cyanosis Skin: No Nodules or Sclerosis, - - Right leg erythema and warmth spreading up to the knee. Neurological: NL Sensation, NL Muscle Strength and Tone, - - Drowsy but able to be roused. No other neurological deficits. Result Diagrams: 08/19/18 05:18 08/19/18 05:18 Additional Lab and Data: Laboratory Tests Microbiology and Other Data: Microbiology 08/18/18 21:48 Aerobic Blood Culture - Preliminary Blood Venous Anaerobic Blood Culture - Preliminary 08/18/18 21:48 Aerobic Blood Culture - Preliminary Blood Venous Anaerobic Blood Culture - Preliminary 08/19/18 02:10 Nasal Screen MRSA (PCR) - Final Nasal Mrsa Not Detected Diagnostic Imaging: CXR: negative EKG Data: sinus tachycardia, Qs in III, aVF, old IMI Assess/Plan/Problems-Billing Assessment: 62 year old woman with RLE cellulitis, septic shock, in the setting of lung cancer on palliative chemotherapy and severe COPD, currently in the ICU on vasopressors. - Patient Problems (1) Septic shock Current Visit: Yes Status: Acute Code(s): A41.9 - SEPSIS, UNSPECIFIED ORGANISM; R65.21 - SEVERE SEPSIS WITH SEPTIC SHOCK SNOMED Code(s): 39522381 Comment: - Currently on Norepinephrine at 6mcg/min to keep MAP>65, titrate as needed. - On fluids, not responsive to initial fluid boluses. decrease rate to 150mls/ hr due to new abnormal lung findings and monitor respiratory status for fluid overload. Appears euvolemic at this time. - Continue broad spectrum antibiotics, Blood culture showing GPC in strings, awaiting culture to narrow antibiotics given patient's tenuous clinical state. - Stress dose steroids IV due to recent steroid use and possible relative adrenal insufficiency. (2) Cellulitis of right lower extremity Current Visit: Yes Status: Acute Code(s): L03.115 - CELLULITIS OF RIGHT LOWER LIMB SNOMED Code(s): 670684121 Comment: - From scrape with pole used frequently by cats - In setting of probable PVD - Concenr for polymicrobial infection, continue broad spectrum antibiotics. (3) Hypokalemia Current Visit: Yes Status: Acute Priority: Medium Code(s): E87.6 - HYPOKALEMIA SNOMED Code(s): 47460002 Comment: - Improved, continue IV supplementation - Replete magnesium concurrently. (4) Lung cancer Current Visit: Yes Status: Acute Priority: Medium Code(s): C34.90 - MALIGNANT NEOPLASM OF UNSP PART OF UNSP BRONCHUS OR LUNG SNOMED Code(s): 307301487 Comment: -Patient immunosuppressed w/ recent chemotherapy and active malignancy -Oncology following - Recently on Dexamethazone. (5) COPD (chronic obstructive pulmonary disease) Current Visit: No Status: Acute Code(s): J44.9 - CHRONIC OBSTRUCTIVE PULMONARY DISEASE, UNSPECIFIED SNOMED Code(s): 29413605 Comment: - No signs of exacerbation. - PRN nebs. (6) Chronic pain Current Visit: No Status: Acute Code(s): G89.29 - OTHER CHRONIC PAIN SNOMED Code(s): 37323785 Comment: - History of multiple back surgeries and dorsal root stimulator. - Continue Cymbalta, valium, morphine per home routine. (7) DVT prophylaxis Current Visit: No Status: Acute Priority: Medium Code(s): OVP9260 - SNOMED Code(s): 385157153 Comment: - High risk of DVT, will start lovenox - Warfarin continued, will stop lovenox when she attains therapeutic INR. (8) Full code status Current Visit: No Status: Acute Code(s): Z78.9 - OTHER SPECIFIED HEALTH STATUS SNOMED Code(s): 407057227 Status and Disposition: ICU inpatient
[2018-08-19] MEDS ORDERED: Hydrocortisone INJ* 100 MG VIAL IV ONE (13:04)
[2018-08-19] MEDS: Norepinephrine VIAL* 4 MG in NS 0.9% 250 ML* 246 ML IV SCH (15:23)
--- NOTE | 2018-08-19 15:49 | PN ---
Progress Note - Progress Note Date of Service: 08/19/18 Note: Blood cultures positive for Group A Strep pyogenes. patient is currently on cefepime, flagyl, and vancomycin. Will adjust antibiotics when culture results are final.
[2018-08-19] MEDS ORDERED: Vancomycin(*) 750 MG in NS 0.9% 250 ML* 250 ML IVPB SCH (16:00)
[2018-08-19] MEDS: DULoxetine DR CAP* 60 MG CAP.DR PO SCH (19:08)
[2018-08-19] MEDS: Warfarin TAB(*) 4 MG PO SCH (19:08)
[2018-08-19] MEDS: NS 0.9% 1000 ML** 1,000 ML IV SCH (20:49)
[2018-08-19] MEDS: traZODone TAB* 100 MG PO SCH (20:51)
[2018-08-19] MEDS: CMC:Pravastatin (NF) 20 MG TAB PO SCH (20:51)
[2018-08-19] MEDS: ARIPiprazole TAB* 5 MG PO SCH (20:51)
[2018-08-19] MEDS: Hydrocortisone INJ* 100 MG VIAL IV SCH (21:49)
[2018-08-19] MEDS ORDERED: Acetaminophen TAB* 325 MG PO PRN (23:18)
[2018-08-20] MEDS: NS 0.9% 1000 ML** 1,000 ML IV SCH ×4 (04:26→19:33)
[2018-08-20] MEDS: HYDROmorphone INJ* 0.5 MG/0.5 ML SYRINGE IV SLOW PU PRN ×2 (04:28→08:56)
[2018-08-20] MEDS: Norepinephrine VIAL* 4 MG in NS 0.9% 250 ML* 246 ML IV SCH ×3 (04:36→18:51)
[2018-08-20] MEDS: Morphine TAB Extended Release (*) 30 MG TAB.ER PO SCH ×3 (05:50→20:35)
[2018-08-20] MEDS: Hydrocortisone INJ* 100 MG VIAL IV SCH ×3 (05:51→20:34)
[2018-08-20] MEDS: metroNIDAZOLE IV 500 MG/100ML* 500 MG/100 ML BAG IVPB SCH (05:51)
[2018-08-20 06:22] LABS: ABS Lymphocytes 0.1 10^3/ul (1.0-4.8); ABS Neutrophils 8.8 10^3/ul (1.5-7.7); Hematocrit 28 % (35-47); Hemoglobin 9.6 g/dL (12.0-16.0); Lymphocyte % 1.1 %; Mean Corpuscular HGB Conc 34 g/dL (31-36); Mean Corpuscular Hemoglobin 35 pg (27-31); Mean Corpuscular Volume 102 fL (80-97); Mean Platelet Volume 7.8 fL (7.4-10.4); Platelet Count 108 10^3/uL (150-450); Red Blood Count 2.75 10^6 /uL (3.70-4.87); Red Cell Distribution Width 17 % (10-15)
[2018-08-20 06:51] LABS: BUN/Creatinine Ratio 22.6 (8-20); Calcium 7.1 mg/dL (8.6-10.3); EGFR African American 118.4 (>60); EGFR Non-African American 97.9 (>60); Magnesium 1.9 mg/dL (1.9-2.7); Potassium 3.2 mmol/L (3.5-5.0)
[2018-08-20] MEDS: Potassium Chlor TAB* 10 MEQ TAB.ER PO SCH ×2 (08:54→20:35)
[2018-08-20] MEDS: Docusate CAP* 100 MG PO SCH ×2 (08:55→20:35)
[2018-08-20] MEDS: Folic Acid TAB* 1 MG PO SCH (08:55)
[2018-08-20] MEDS: Famotidine TAB* 20 MG PO SCH (08:55)
[2018-08-20 10:14] LABS: INR 2.59 (0.82-1.09)
[2018-08-20] MEDS: Cefepime 2 GM in Dextrose(*) 2 GM/50 ML BAG IV SCH (11:00)
[2018-08-20] MEDS: [UNRECOGNIZED DRUG - OTHER] PO SCH ×3 (11:00→20:08)
[2018-08-20] MEDS: KCL 10 MEQ/50 ML IVPREMIX* 10 MEQ/50 ML BAG IV SCH ×3 (11:01→14:03)
[2018-08-20] MEDS: Morphine TAB Extended Release (*) 30 MG TAB.ER PO PRN ×2 (12:03→19:19)
--- NOTE | 2018-08-20 14:01 | PN ---
Progress Note - Progress Note Date of Service: 08/20/18 SOAP: Subjective: [Feels slightly better today. Appetite ok, tolerating clear liquids, but does not want to advance. ] Objective: [ Vital Signs: Temp Pulse Resp BP Pulse Ox 97.8 F 82 16 89/60 98 08/20/18 03:36 08/20/18 10:00 08/20/18 11:08 08/20/18 10:00 08/20/18 10:00 Acetaminophen (Tylenol Tab*) 650 mg PO Q6H PRN PRN Reason: FEVER Last Admin: 08/19/18 23:27 Dose: 650 mg Albuterol (Ventolin Hfa Inhaler*) 2 puff INH Q4HR PRN PRN Reason: CONGESTION Albuterol/Ipratropium (Duoneb (Albuterol 2.5 Mg/Ipratropium 0.5 Mg)) 1 neb INH Q6H PRN PRN Reason: SOB/WHEEZING Aripiprazole (Abilify Tab*) 5 mg PO BEDTIME [facility] Last Admin: 08/19/18 20:51 Dose: 5 mg Diazepam (Valium Tab(*)) 5 mg PO TID PRN PRN Reason: ANXIETY Docusate Sodium (Colace Cap*) 100 mg PO BID [facility] Last Admin: 08/20/18 08:55 Dose: 100 mg Duloxetine HCl (Cymbalta Cap*) 60 mg PO QPM [facility] Last Admin: 08/19/18 19:08 Dose: 60 mg Famotidine (Pepcid Tab*) 40 mg PO DAILY [facility] Last Admin: 08/20/18 08:55 Dose: 40 mg Folic Acid (Folvite Tab*) 1 mg PO DAILY [facility] Last Admin: 08/20/18 08:55 Dose: 1 mg Heparin Sodium (Porcine) (Heparin Flush Port (Ivad)) 5 ml FLUSH DAILY [facility]; Protocol Last Admin: 08/20/18 08:55 Dose: Not Given Hydrocortisone Sodium Succinate (Solu-Cortef*) 50 mg IV Q8H [facility] Last Admin: 08/20/18 05:51 Dose: 50 mg Hydromorphone HCl (Dilaudid Inj*) 0.5 mg IV SLOW PU Q4H PRN PRN Reason: PAIN Last Admin: 08/20/18 08:56 Dose: 0.5 mg Norepinephrine Bitartrate 4 mg (/ Sodium Chloride) 250 mls @ 18.75 mls/hr IV Q13H [facility]; Protocol Last Admin: 08/20/18 12:27 Dose: 11.3 mls/hr Sodium Chloride (Ns 0.9% 1000 Ml) 1,000 mls @ 150 mls/hr IV PER RATE [facility] Last Admin: 08/20/18 12:28 Dose: 150 mls/hr Ceftriaxone Sodium 1 gm/ (Sodium Chloride) 50 mls @ 200 mls/hr IVPB Q24H [facility] Morphine Sulfate (Ms Contin(*)) 60 mg PO Q8H PRN PRN Reason: PAIN Last Admin: 08/20/18 12:03 Dose: 60 mg Morphine Sulfate (Ms Contin(*)) 30 mg PO Q8HR [facility] Last Admin: 08/20/18 05:50 Dose: 30 mg Nft* (Orphenadrine Citrate 100 Mg Tablet) 100 mg PO TID [facility] Last Admin: 08/20/18 11:00 Dose: Not Given Potassium Chloride (Klor Con Er Tab*) 10 meq PO BID [facility] Last Admin: 08/20/18 08:54 Dose: 10 meq Pravastatin Sodium (Pravachol (Nf)) 10 mg PO BEDTIME [facility] Last Admin: 08/19/18 20:51 Dose: 10 mg Trazodone HCl (Desyrel Tab*) 100 mg PO BEDTIME [facility] Last Admin: 08/19/18 20:51 Dose: 100 mg Warfarin Sodium (Coumadin Tab(*)) 4 mg PO DAILY@1700 [facility]; Protocol Last Admin: 08/19/18 19:08 Dose: 4 mg Laboratory Results - last 24 hr 08/20/18 08/20/18 08/20/18 06:00 06:00 09:05 WBC 9.0 RBC 2.75 L Hgb 9.6 L Hct 28 L MCV 102 H MCH 35 H MCHC 34 RDW 17 H Plt Count 108 L MPV 7.8 Neut % (Auto) 98.2 Lymph % (Auto) 1.1 Whiteside % (Auto) 0.3 Eos % (Auto) 0.0 Baso % (Auto) 0.4 Absolute Neuts (auto) 8.8 H Absolute Lymphs (auto) 0.1 L Absolute Monos (auto) 0.0 Absolute Eos (auto) 0.0 Absolute Basos (auto) 0.0 Absolute Nucleated RBC 0.0 Nucleated RBC % 0.0 INR (Anticoag Therapy) 2.59 H Sodium 139 Potassium 3.2 L Chloride 112 H Carbon Dioxide 22 Anion Gap 5 BUN 14 Creatinine 0.62 Est GFR ( Amer) 118.4 Est GFR (Non-Af Amer) 97.9 BUN/Creatinine Ratio 22.6 H Glucose 108 H Calcium 7.1 L Magnesium 1.9 Exam: Gen: Acutely ill appearing, but improved. Eating lunch HEENT: MMM CV: RRR, no m/r/g Resp: decreased BS, no w/c/r Abd: soft, nonTTP Ext: erythema and mild edema of RLE, erythema has receeded from lines drawn in ER] Assessment: [62 yo female with metastatic NSCLC on single agent pemetrexed, C9D4, admitted with septic shock secondary to RLE cellulitis.] Plan: [1. Septic shock secondary to RLE cellulitis: improving - 4/4 blood cx growing group A strep - narrow abx to ceftriaxone, 1g q 24h - she does have a port in place which may become colonized in the setting of gram + bacteremia, will be vigilant to eval for port colonization as she improves, port can be accessed and used for IV abx administration - cont pressor support per cleat feeder, weaning today - TTE to eval for vegetation 2. NSCLC, metastatic - C9D5 pemetrexed - not neutropenic, but early in cycle 3. COPD - stable, no acute exacerbation 4. h/o PE - cont Coumadin, therapeutic today 5. Steroid use - has required freq courses of high dose steroids for immune mediated rash/lupus , tapered just prior to admission - cont stress dose hydrocortisone, will taper as she improves later in her hospital stay 4. FULL CODE Dispo: cont ICU care, oncology will continue to co-manage - may be able to transfer from ICU tomorrow am]
--- NOTE | 2018-08-20 16:19 | PN ---
Date of Service: 08/20/18 Critical Care Services: Doing well clinically - Has Strep pyogenes bacteremia, and is now Rxed with ceftriaxone. On low-dose levophed, but lactate has normalized. Vital Signs: Temp Pulse Resp BP SpO2 FiO2 99.7 F 82 23 103/70 96 Physical Exam: Gen:Alert and oriented. Seems comfortable Lungs:Clear Extremities: Right leg erythema and edema up to knee. Fluid Balance (Past 24 Hours): 08/19/18 08/20/18 06:59 06:59 Intake Total 3032 4495 Output Total 100 1800 Balance 2932 2695 Weight 111 lb 5.335 oz 123 lb 14.397 oz Intake: IV Fluids 2626 3011 NS 749 NSKCl 976 2262 IVPB 673 Abx 453 Flagyl 170 NSKCl 50 Medicated IV 406 511 Levophed 406 511 Oral 300 Output: Urine 100 1575 Mejia 225 Other: Estimated Void Large Date of Last Bowel 08/19/18 Movement # Bowel Movements 1 Estimated Stool Amount Large # Voids 0 0 5.5 liters positive past 48 hrs. Labs: 08/20/18 08/20/18 08/20/18 06:00 06:00 09:05 WBC 9.0 RBC 2.75 L Hgb 9.6 L Hct 28 L MCV 102 H MCH 35 H MCHC 34 RDW 17 H Plt Count 108 L MPV 7.8 Neut % (Auto) 98.2 Lymph % (Auto) 1.1 Carlton % (Auto) 0.3 Eos % (Auto) 0.0 Baso % (Auto) 0.4 Absolute Neuts (auto) 8.8 H Absolute Lymphs (auto) 0.1 L Absolute Monos (auto) 0.0 Absolute Eos (auto) 0.0 Absolute Basos (auto) 0.0 Absolute Nucleated RBC 0.0 Nucleated RBC % 0.0 INR (Anticoag Therapy) 2.59 H Sodium 139 Potassium 3.2 L Chloride 112 H Carbon Dioxide 22 Anion Gap 5 BUN 14 Creatinine 0.62 Est GFR ( Amer) 118.4 Est GFR (Non-Af Amer) 97.9 BUN/Creatinine Ratio 22.6 H Glucose 108 H Calcium 7.1 L Magnesium 1.9 Studies: All 4 blood cultures positive for Strep pyogenes Nutrition: Oral diet Impression: Satisfactory Rx for gram+ septicemia (with normalization of serum lactate within 24 hrs). Plan: Continue present management, but wean off vasopressor when feasable. Will continue steroids and coumadin. Critical Care Time: 30 minutes
[2018-08-20] MEDS: Warfarin TAB(*) 4 MG PO SCH (18:53)
[2018-08-20] MEDS: DULoxetine DR CAP* 60 MG CAP.DR PO SCH (18:53)
[2018-08-20] MEDS: ARIPiprazole TAB* 5 MG PO SCH (20:34)
[2018-08-20] MEDS: cefTRIAXone* 1 GM in NS 0.9% 50 ML BAG IVPB SCH (20:34)
[2018-08-20] MEDS: traZODone TAB* 100 MG PO SCH (20:35)
[2018-08-20] MEDS: CMC:Pravastatin (NF) 20 MG TAB PO SCH (20:35)
[2018-08-21] MEDS: NS 0.9% 1000 ML** 1,000 ML IV SCH (02:24)
[2018-08-21] MEDS: Norepinephrine VIAL* 4 MG in NS 0.9% 250 ML* 246 ML IV SCH (04:24)
[2018-08-21] MEDS: Morphine TAB Extended Release (*) 30 MG TAB.ER PO SCH ×3 (05:50→21:05)
[2018-08-21] MEDS: Hydrocortisone INJ* 100 MG VIAL IV SCH ×3 (05:50→21:07)
[2018-08-21] MEDS: Morphine TAB Extended Release (*) 30 MG TAB.ER PO PRN ×2 (05:56→23:59)
[2018-08-21] MEDS ORDERED: Norepinephrine VIAL* 4 MG in NS 0.9% 250 ML* 246 ML IV SCH (06:00)
[2018-08-21 06:06] LABS: INR 3.41 (0.82-1.09)
[2018-08-21 06:11] LABS: Hematocrit 27 % (35-47); Mean Corpuscular HGB Conc 34 g/dL (31-36); Mean Corpuscular Hemoglobin 35 pg (27-31); Mean Corpuscular Volume 102 fL (80-97); Platelet Count 80 10^3/uL (150-450); Red Blood Count 2.61 10^6 /uL (3.70-4.87); Red Cell Distribution Width 17 % (10-15); White Blood Count 6.6 10^3/uL (3.5-10.8)
[2018-08-21 06:17] LABS: Albumin 2.5 g/dL (3.2-5.2); Albumin/Globulin Ratio 1.3 (1-3); Calcium 7.7 mg/dL (8.6-10.3); EGFR African American 151.3 (>60); Potassium 3.3 mmol/L (3.5-5.0); Total Bilirubin 0.3 mg/dL (0.2-1.0); Total Protein 4.5 g/dL (6.4-8.9)
[2018-08-21 09:34] LABS: Magnesium 1.8 mg/dL (1.9-2.7)
[2018-08-21] MEDS: Folic Acid TAB* 1 MG PO SCH (09:53)
[2018-08-21] MEDS: Potassium Chlor TAB* 10 MEQ TAB.ER PO SCH ×2 (09:53→21:02)
[2018-08-21] MEDS: Docusate CAP* 100 MG PO SCH ×2 (09:53→21:03)
[2018-08-21] MEDS: [UNRECOGNIZED DRUG - OTHER] PO SCH ×3 (09:53→21:16)
[2018-08-21] MEDS: Famotidine TAB* 20 MG PO SCH (09:53)
[2018-08-21] MEDS ORDERED: Magnesium Sulfate 2 GM IV* 2 GM/50 ML BAG IVPB ONE (10:05)
--- NOTE | 2018-08-21 10:17 | PN ---
Progress Note - Progress Note Date of Service: 08/21/18 SOAP: Subjective: [Reports feeling a little better. Respiratory symptoms stable. Appetite improving. Leg is hall tender and swollen.] Objective: [ Vital Signs: Temp Pulse Resp BP Pulse Ox 98.4 F 73 15 116/75 94 08/21/18 07:24 08/21/18 07:00 08/21/18 07:00 08/21/18 07:00 08/21/18 07:00 Acetaminophen (Tylenol Tab*) 650 mg PO Q6H PRN PRN Reason: FEVER Last Admin: 08/19/18 23:27 Dose: 650 mg Albuterol (Ventolin Hfa Inhaler*) 2 puff INH Q4HR PRN PRN Reason: CONGESTION Albuterol/Ipratropium (Duoneb (Albuterol 2.5 Mg/Ipratropium 0.5 Mg)) 1 neb INH Q6H PRN PRN Reason: SOB/WHEEZING Aripiprazole (Abilify Tab*) 5 mg PO BEDTIME [facility] Last Admin: 08/20/18 20:34 Dose: 5 mg Diazepam (Valium Tab(*)) 5 mg PO TID PRN PRN Reason: ANXIETY Docusate Sodium (Colace Cap*) 100 mg PO BID [facility] Last Admin: 08/21/18 09:53 Dose: 100 mg Duloxetine HCl (Cymbalta Cap*) 60 mg PO QPM [facility] Last Admin: 08/20/18 18:53 Dose: 60 mg Famotidine (Pepcid Tab*) 40 mg PO DAILY [facility] Last Admin: 08/21/18 09:53 Dose: 40 mg Folic Acid (Folvite Tab*) 1 mg PO DAILY [facility] Last Admin: 08/21/18 09:53 Dose: 1 mg Hydrocortisone Sodium Succinate (Solu-Cortef*) 50 mg IV Q8H [facility] Last Admin: 08/21/18 05:50 Dose: 50 mg Hydromorphone HCl (Dilaudid Inj*) 0.5 mg IV SLOW PU Q4H PRN PRN Reason: PAIN Last Admin: 08/20/18 08:56 Dose: 0.5 mg Ceftriaxone Sodium 1 gm/ (Sodium Chloride) 50 mls @ 200 mls/hr IVPB Q24H [facility] Last Admin: 08/20/18 20:34 Dose: 200 mls/hr Magnesium Sulfate (Magnesium Sulfate 2 Gm Iv*) 2 gm in 50 mls @ 50 mls/hr IVPB ONCE ONE Stop: 08/21/18 11:04 Potassium Chloride (Potassium Chloride 10 Meq/50 Ml Ivpremix*) 10 meq in 50 mls @ 50 mls/hr IV Q1H [facility] Stop: 08/21/18 13:59 Morphine Sulfate (Ms Contin(*)) 60 mg PO Q8H PRN PRN Reason: PAIN Last Admin: 08/21/18 05:56 Dose: 60 mg Morphine Sulfate (Ms Contin(*)) 30 mg PO Q8HR [facility] Last Admin: 08/21/18 05:50 Dose: 30 mg Nft* (Orphenadrine Citrate 100 Mg Tablet) 100 mg PO TID [facility] Last Admin: 08/21/18 09:53 Dose: Not Given Potassium Chloride (Klor Con Er Tab*) 10 meq PO BID [facility] Last Admin: 08/21/18 09:53 Dose: 10 meq Pravastatin Sodium (Pravachol (Nf)) 10 mg PO BEDTIME [facility] Last Admin: 08/20/18 20:35 Dose: 10 mg Trazodone HCl (Desyrel Tab*) 100 mg PO BEDTIME [facility] Last Admin: 08/20/18 20:35 Dose: 100 mg Warfarin Sodium (Coumadin Tab(*)) 3 mg PO DAILY@1700 [facility]; Protocol Laboratory Results - last 24 hr 08/20/18 08/21/18 08/21/18 09:05 05:51 05:51 WBC 6.6 RBC 2.61 L Hgb 9.0 L Hct 27 L MCV 102 H MCH 35 H MCHC 34 RDW 17 H Plt Count 80 L D MPV 8.0 INR (Anticoag Therapy) 2.59 H 3.41 H Sodium Potassium Chloride Carbon Dioxide Anion Gap BUN Creatinine Est GFR ( Amer) Est GFR (Non-Af Amer) BUN/Creatinine Ratio Glucose Calcium Magnesium Total Bilirubin AST ALT Alkaline Phosphatase Total Protein Albumin Globulin Albumin/Globulin Ratio 08/21/18 05:51 WBC RBC Hgb Hct MCV MCH MCHC RDW Plt Count MPV INR (Anticoag Therapy) Sodium 137 Potassium 3.3 L Chloride 110 Carbon Dioxide 21 L Anion Gap 6 BUN 9 Creatinine 0.50 L Est GFR ( Amer) 151.3 Est GFR (Non-Af Amer) 125.0 BUN/Creatinine Ratio 18.0 Glucose 84 Calcium 7.7 L Magnesium 1.8 L Total Bilirubin 0.30 AST 18 ALT 10 Alkaline Phosphatase 57 Total Protein 4.5 L Albumin 2.5 L Globulin 2.0 Albumin/Globulin Ratio 1.3 Exam: Gen: Acutely ill appearing, but improved HEENT: MMM, some thrush CV: RRR, no m/r/g Resp: decreased BS, no w/c/r Abd: soft, nonTTP Ext: erythema and mild edema of RLE, erythema has receeded from lines drawn in ER] Assessment: [62 yo female with metastatic NSCLC on single agent pemetrexed, C9D6, admitted with septic shock secondary to RLE cellulitis.] Plan: [1. Septic shock secondary to RLE cellulitis: improving - / blood cx growing group A strep, repeat cx clear after 24h - narrowed abx to ceftriaxone, 1g q 24h - she does have a port in place which may become colonized in the setting of gram + bacteremia, will be vigilant to eval for port colonization as she improves, port can be accessed and used for IV abx administration - TTE to eval for vegetation ordered and pending - ID consultation tomorrow 2. NSCLC, metastatic - C9D6 pemetrexed - not neutropenic, but early in cycle 3. COPD - stable, no acute exacerbation 4. h/o PE - cont Coumadin, therapeutic today 5. Steroid use - has required freq courses of high dose steroids for immune mediated rash/lupus , tapered just prior to admission - cont stress dose hydrocortisone, will taper as she improves later in her hospital stay 4. FULL CODE Dispo: stable for transfer to medical floor on oncology service]
[2018-08-21] MEDS: KCL 10 MEQ/50 ML IVPREMIX* 10 MEQ/50 ML BAG IV SCH ×3 (11:29→15:40)
--- NOTE | 2018-08-21 13:39 | ECHO ---
*[facility]* [place] [address] Fax #: [phone] Transthoracic Echocardiogram Patient: Paris Aguiar : 1955 Study Date: 08/21/2018 Age: 63 Gender: F HR: 88 bpm Height: 66 in /167.6 cm BSA: 1.63 m^2 Weight: 122.7 lb /55.8 kg BMI: 19.9 kg/m^2 *Mobile Marketing Manager: * Lay Somers [facility] *Referring Physician: * Avi Agudelo *Reading Physician: * Mishel Blanca MD Indications: Bacteremia. History: Chronic obstructive pulmonary disease. The patient has a lung malignancy and is undergoingchemotherapy. 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 Risk factors: Current tobacco use. Conclusions Summary: 1. Left ventricle: The cavity size is normal. Wall thickness is mildly increased. Systolic function is normal. The estimated ejection fraction is 55-60%. Features are consistent with a pseudonormal left ventricular filling pattern, with concomitant abnormal relaxation and increased filling pressure (grade 2 diastolic dysfunction). 2. Right ventricle: Systolic pressure is mildly increased. 3. Aortic valve: There is mild to moderate regurgitation. 4. Tricuspid valve: There is moderate regurgitation. 5. Pulmonary arteries: Systolic pressure is mildly increased. The peak pressure during systole by Doppler is 39.0 mm Hg. 6. C/t 04/16/2018, there is increase mild increase in AI and tricuspid regurgitation severity now. Study data: Transthoracic echocardiogram. Procedure: Transthoracic echocardiography was performed. Image quality was fair. Complete 2D, spectral Doppler, and color flow Doppler. Location: ICU Patient status: Inpatient. Patient room number: 3. Rhythm: Normal sinus rhythm. Findings Left ventricle: The cavity size is normal. Wall thickness is mildly increased. Systolic function is normal. The estimated ejection fraction is 55-60%. Wall motion is normal; there are no regional wall motion abnormalities. Features are consistent with a pseudonormal left ventricular filling pattern, with concomitant abnormal relaxation and increased filling pressure (grade 2 diastolic dysfunction). Right ventricle: The cavity size is normal. Wall thickness is mildly increased. Systolic function is normal. Systolic pressure is mildly increased. Left atrium: The atrium is normal in size. Right atrium: The atrium is normal in size. Mitral valve: The leaflets are normal thickness. There is no evidence of a vegetation. There is no evidence of stenosis. There is no significant regurgitation. Aortic valve: The valve is probably trileaflet. The leaflets are normal thickness. There is no evidence of a vegetation. There is no evidence of stenosis. There is mild to moderate regurgitation. Tricuspid valve: The leaflets are normal thickness. There is no evidence of a vegetation. There is no evidence of stenosis. There is moderate regurgitation. Pulmonic valve: The leaflets are normal thickness. There is no evidence of a vegetation. There is no evidence of stenosis. There is no significant regurgitation. Aorta: Aortic root: The aortic root is appears normal. Ascending aorta: The ascending aorta is appears normal. Aortic arch: The aortic arch is poorly visualized. Pericardium: There is no significant pericardial effusion. Pulmonary arteries: Not well visualized. Systolic pressure is mildly increased. Systemic veins: Inferior vena cava: The vessel is normal in size. The respirophasic diameter changes are blunted (< 50%). Measurements Left ventricle Value Ref Aortic valve continued Value Ref APPLE, LAX 4.1 cm 3.8 - 5.2 Peak v, S 1.77 m/sec ----- ESD, LAX 2.9 cm 2.2 - 3.5 VTI, S 35.7 cm ----- FS, LAX 31 % 27 - 45 Mean grad, S 6.0 mm Hg ----- PW, ED, LAX (H) 1.1 cm 0.6 - 0.9 Peak grad, S 13.0 mm Hg ----- EF 59 % 54 - 74 AR peak v 3.68 m/sec ----- E', lat arely, TDI (L) 8.4 cm/sec >=10.0 AR PHT 619 ms - ---- E/e', lat arely, 15 AR peak grad 54 mm Hg ---- - TDI E', med arely, TDI 7.9 cm/sec >=7.0 Mitral valve Value R ef E/e', med arely, 16 Peak E 1.25 m/sec ---- - TDI Peak A 1.06 m/sec ----- E', avg, TDI 8.2 cm/sec Decel time 166 ms ---- - E/e', avg, TDI (H) 15 <=14 PHT 86 ms - ---- Mean grad, D 3.0 mm Hg ----- LVOT Value Ref Peak grad, D 7.0 mm Hg ----- Peak maciej, S 1.71 m/sec Peak E/A ratio 1.2 ----- Peak grad, S 12 mm Hg MVA, PHT 2.6 cm^2 ----- Mean grad, S 5 mm Hg Pulmonic valve Value Ref Ventricular septum Value Ref Peak v, S 1.14 m/sec ----- IVS, ED (H) 1.2 cm 0.6 - 0.9 Peak grad, S 5.0 mm Hg ----- Right ventricle Value Ref Tricuspid valve Value Ref APPLE, LAX 1.9 cm TR peak v (H) 3 m/sec <=2.8 APPLE minor ax, A4C 2.3 cm 1.9 - 3.5 Peak RV-RA grad, S 36 mm Hg ----- mid Pressure, S 44 mm Hg Aortic root Value Ref Root diam 3.4 cm <3.9 Left atrium Value Ref AP dim, ES 3.40 cm 2.70 - Ascending aorta Value Ref 3.80 AAo AP diam, S 2.8 cm ----- ML dim, A4C 3.5 cm SI dim, A4C 5.5 cm Pulmonary artery Value Ref Vol/bsa, ES, A/L 30 ml/m^2 16 - 34 Pressure, S 39.0 mm Hg ----- Right atrium Value Ref Inferior vena cava Value Ref SI dim, ES 4.5 cm 3.4 - 5.3 Diam 1.5 cm ----- ML dim, ES, A4C 3.5 cm 2.6 - 4.4 Estimated RAP 8 mm Hg Aortic valve Value Ref Arely diam, ED 1.9 cm Legend: (L) and (H) love values outside specified reference range. Prepared and electronically signed by Mishel Blanca MD 08/21/2018 13:38
[2018-08-21] MEDS ORDERED: Vancomycin Trough Check NOTE FOLLOW UP ONE (15:30)
[2018-08-21] MEDS: Nystatin SUSPENSION* 100000 UNITS/ML 5 ML UDC PO SCH ×3 (15:39→21:06)
[2018-08-21] MEDS: DULoxetine DR CAP* 60 MG CAP.DR PO SCH (17:39)
[2018-08-21] MEDS: CMC:Pravastatin (NF) 20 MG TAB PO SCH (21:01)
[2018-08-21] MEDS: ARIPiprazole TAB* 5 MG PO SCH (21:02)
[2018-08-21] MEDS: cefTRIAXone* 1 GM in NS 0.9% 50 ML BAG IVPB SCH (21:06)
[2018-08-21] MEDS: traZODone TAB* 100 MG PO SCH (23:59)
[2018-08-22] MEDS: Hydrocortisone INJ* 100 MG VIAL IV SCH ×3 (05:25→23:13)
[2018-08-22] MEDS: Morphine TAB Extended Release (*) 30 MG TAB.ER PO SCH ×3 (05:25→23:12)
[2018-08-22 05:50] LABS: Hematocrit 25 % (35-47); Hemoglobin 8.5 g/dL (12.0-16.0); Mean Corpuscular HGB Conc 35 g/dL (31-36); Mean Corpuscular Hemoglobin 35 pg (27-31); Mean Corpuscular Volume 102 fL (80-97); Mean Platelet Volume 8.2 fL (7.4-10.4); Platelet Count 51 10^3/uL (150-450); Red Blood Count 2.42 10^6 /uL (3.70-4.87); Red Cell Distribution Width 16 % (10-15); White Blood Count 3.1 10^3/uL (3.5-10.8)
[2018-08-22 05:52] LABS: INR 4.97 (0.82-1.09)
[2018-08-22 06:24] LABS: Calcium 7.7 mg/dL (8.6-10.3); EGFR African American 162.5 (>60); EGFR Non-African American 134.3 (>60); Magnesium 1.8 mg/dL (1.9-2.7); Potassium 2.9 mmol/L (3.5-5.0)
[2018-08-22] MEDS ORDERED: Magnesium Sulf 4 GM/100 ML IV* 4,000 MG/100 ML BAG IVPB ONE (09:18)
--- NOTE | 2018-08-22 09:24 | PN ---
Progress Note - Progress Note Date of Service: 08/22/18 SOAP: Subjective: []Feeling OK, but still tired. Right leg still very red, warm, and tender. States that she injured her leg on her cat's "pole." Hasn't been eating well and at home usually tolerates protein drinks but not liking how warm they are here. Interested in trying other things. Diarrhea is "acting up, it's runny." Medications: Acetaminophen (Tylenol Tab*) 650 mg PO Q6H PRN PRN Reason: FEVER Last Admin: 08/19/18 23:27 Dose: 650 mg Albuterol (Ventolin Hfa Inhaler*) 2 puff INH Q4HR PRN PRN Reason: CONGESTION Albuterol/Ipratropium (Duoneb (Albuterol 2.5 Mg/Ipratropium 0.5 Mg)) 1 neb INH Q6H PRN PRN Reason: SOB/WHEEZING Aripiprazole (Abilify Tab*) 5 mg PO BEDTIME [facility] Last Admin: 08/21/18 21:02 Dose: 5 mg Diazepam (Valium Tab(*)) 5 mg PO TID PRN PRN Reason: ANXIETY Docusate Sodium (Colace Cap*) 100 mg PO BID [facility] Last Admin: 08/21/18 21:03 Dose: Not Given Duloxetine HCl (Cymbalta Cap*) 60 mg PO QPM [facility] Last Admin: 08/21/18 17:39 Dose: 60 mg Famotidine (Pepcid Tab*) 40 mg PO DAILY [facility] Last Admin: 08/21/18 09:53 Dose: 40 mg Folic Acid (Folvite Tab*) 1 mg PO DAILY [facility] Last Admin: 08/21/18 09:53 Dose: 1 mg Heparin Sodium (Porcine) (Heparin Flush Port (Ivad)) 5 ml FLUSH DAILY [facility]; Protocol Last Admin: 08/22/18 05:27 Dose: 5 ml Hydrocortisone Sodium Succinate (Solu-Cortef*) 50 mg IV Q8H [facility] Last Admin: 08/22/18 05:25 Dose: 50 mg Hydromorphone HCl (Dilaudid Inj*) 0.5 mg IV SLOW PU Q4H PRN PRN Reason: PAIN Last Admin: 08/20/18 08:56 Dose: 0.5 mg Ceftriaxone Sodium 1 gm/ (Sodium Chloride) 50 mls @ 200 mls/hr IVPB Q24H [facility] Last Admin: 08/21/18 21:06 Dose: 200 mls/hr Morphine Sulfate (Ms Contin(*)) 60 mg PO Q8H PRN PRN Reason: PAIN Last Admin: 08/21/18 23:59 Dose: 60 mg Morphine Sulfate (Ms Contin(*)) 30 mg PO Q8HR [facility] Last Admin: 08/22/18 05:25 Dose: 30 mg Nft* (Orphenadrine Citrate 100 Mg Tablet) 100 mg PO TID [facility] Last Admin: 08/21/18 21:16 Dose: Not Given Nystatin (Nystatin Suspension*) 500,000 units PO QID [facility] Stop: 08/28/18 10:15 Last Admin: 08/21/18 21:06 Dose: 500,000 units Potassium Chloride (Klor Con Er Tab*) 10 meq PO BID [facility] Last Admin: 08/21/18 21:02 Dose: 10 meq Pravastatin Sodium (Pravachol (Nf)) 10 mg PO BEDTIME [facility] Last Admin: 08/21/18 21:01 Dose: 10 mg Trazodone HCl (Desyrel Tab*) 100 mg PO BEDTIME [facility] Last Admin: 08/21/18 23:59 Dose: 100 mg Objective: [] Vital Signs Temp Pulse Resp BP Pulse Ox 97.9 F 80 16 107/56 95 08/22/18 03:08 08/22/18 03:08 08/22/18 05:25 08/22/18 03:08 08/22/18 03:08 A&Ox3, EOMI, neuro grossly non-focal HRR, S1S2, II/ ROSANNA LS clear Scant mila rash to arms, chest, and cheeks Bilat. LE vascular insufficiency RLE bright red, warm, swollen, and tender, scabbed wound @ moe, no weeping Laboratory Results - last 24 hr 08/21/18 08/22/18 08/22/18 05:51 05:30 05:30 WBC 3.1 L RBC 2.42 L Hgb 8.5 L Hct 25 L MCV 102 H MCH 35 H MCHC 35 RDW 16 H Plt Count 51 L MPV 8.2 INR (Anticoag Therapy) Sodium 140 Potassium 2.9 L Chloride 110 Carbon Dioxide 26 Anion Gap 4 BUN 8 Creatinine 0.47 L Est GFR ( Amer) 162.5 Est GFR (Non-Af Amer) 134.3 BUN/Creatinine Ratio 17.0 Glucose 117 H Calcium 7.7 L Magnesium 1.8 L 1.8 L 08/22/18 05:30 WBC RBC Hgb Hct MCV MCH MCHC RDW Plt Count MPV INR (Anticoag Therapy) 4.97 H Sodium Potassium Chloride Carbon Dioxide Anion Gap BUN Creatinine Est GFR ( Amer) Est GFR (Non-Af Amer) BUN/Creatinine Ratio Glucose Calcium Magnesium Microbiology 08/19/18 23:45 Aerobic Blood Culture - Preliminary Blood Venous No Growth Day 2 Anaerobic Blood Culture - Preliminary No Growth Day 2 08/19/18 23:35 Aerobic Blood Culture - Preliminary Blood Venous No Growth Day 2 Anaerobic Blood Culture - Preliminary No Growth Day 2 08/18/18 21:48 Aerobic Blood Culture - Final Blood Venous Strep Pyogenes (Grp A) Anaerobic Blood Culture - Final Strep Pyogenes (Grp A) 08/18/18 21:48 Aerobic Blood Culture - Final Blood Venous Strep Pyogenes (Grp A) Anaerobic Blood Culture - Final Strep Group A 08/19/18 02:10 Nasal Screen MRSA (PCR) - Final Nasal Mrsa Not Detected Assessment: []62 yo female with metastatic NSCLC on single agent pemetrexed, C9D7, admitted with septic shock due to group A bacteremia related to RLE cellulitis. Her blood cultures have cleared and she is improving overall, however her cellulitis remains significant. Plan: []1. Septic shock secondary to RLE cellulitis: improving - 4/4 blood cx growing group A strep, repeat cx clear after 24h - narrowed abx to ceftriaxone, 1g q 24h - she does have a port in place which may become colonized in the setting of gram + bacteremia, will be vigilant to eval for port colonization as she improves, port can be accessed and used for IV abx administration - TTE negative for vegetation - ID consultation pending 2. NSCLC, metastatic: C9D7 pemetrexed - mild pancytopenia, cont. daily counts for now 3. Electrolyte abnormalities: likely related to poor PO intake and diarrhea from abx. - start imodium - dietary consult 4. h/o PE: supratherapeutic today - hold coumadin and give Vit K d/t thrombocytopenia 5. 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 FULL CODE
[2018-08-22] MEDS: [UNRECOGNIZED DRUG - OTHER] PO SCH ×2 (10:18→15:16)
[2018-08-22] MEDS ORDERED: Loperamide CAP* 2 MG PO PRN (10:41)
[2018-08-22] MEDS: KCL 20 MEQ/100 ML IVPREMIX* 20 MEQ/100 ML BAG IV SCH ×2 (11:02→17:34)
[2018-08-22] MEDS: Famotidine TAB* 20 MG PO SCH (11:03)
[2018-08-22] MEDS: Nystatin SUSPENSION* 100000 UNITS/ML 5 ML UDC PO SCH ×4 (11:03→21:02)
[2018-08-22] MEDS: Potassium Chlor TAB* 10 MEQ TAB.ER PO SCH ×2 (11:03→21:03)
[2018-08-22] MEDS: Docusate CAP* 100 MG PO SCH ×2 (11:03→21:02)
[2018-08-22] MEDS: Folic Acid TAB* 1 MG PO SCH (11:03)
[2018-08-22 12:39] LABS: INR 4.39 (0.82-1.09)
[2018-08-22] MEDS ORDERED: Phytonadione Oral Solution* 5 MG/25 ML UDC PO ONE (13:02)
[2018-08-22] MEDS: HYDROmorphone INJ1* 1 MG/ML SYRINGE IV SLOW PU PRN ×2 (13:24→17:35)
--- NOTE | 2018-08-22 15:35 | CONS ---
CONSULTATION REPORT: DATE OF CONSULT: 08/22/18 REQUESTING PROVIDER: Randa Leo NP. CONSULTING SERVICE: Infectious disease. REASON FOR CONSULT: Right leg cellulitis. IMPRESSION: 1. Right leg cellulitis due to group A strep, which is in 4/4 blood culture bottles. She does also have right ankle pain with weightbearing, which she feels is getting worse in the last few days. She could have a septic arthritis or septic tenosynovitis. Her blood cultures have cleared infectious endocarditis on the differential diagnosis. Her transthoracic echocardiogram showed [id number] aortic regurgitation. 2. Stage IV lung cancer, on chemotherapy. RECOMMENDATIONS: I will continue ceftriaxone. I will obtain an MRI of the right ankle as the next step in workup. HISTORY OF PRESENT ILLNESS: A 63-year-old woman with lung cancer scraped the right leg on some furniture and developed redness, pain, swelling, and fevers, chills, and sweats. She came to the hospital on 08/19/18. She was febrile at 39 degrees Celsius. She was started on antibiotics. Blood cultures taken at that time grew group A strep. She was initially on cefepime, vancomycin, and Flagyl. The streptococcus is sensitive to everything, other than azithromycin and erythromycin. She is on ceftriaxone now and tolerating it well. The redness and swelling in the right lower leg are easing a little bit, though not much and then she has had ongoing right ankle pain, which was worse with weightbearing and that she thinks is getting worse. She does not have any right knee pain. She has stiffness in the knee, she thinks, due to the amount of swelling through the leg. Initial white count was 13 on admission; it is down to 3000 today. Platelets were 296 and are down to 51,000. She does not have pain or joint symptoms in other areas. She does not have any diarrhea. PAST MEDICAL HISTORY: 1. Stage IV lung cancer, on chemotherapy and has a PowerPort. 2. History of pulmonary embolism. 3. Factor V Leiden positive. 4. COPD, chronic oxygen supplementation dependent. 5. Hypertension. 6. Aortic insufficiency. 7. Peripheral arterial disease. 8. Lupus. 9. Chronic low back pain. 10. Anxiety. 11. Depression. 12. History of GI bleed. 13. Status post appendectomy. 14. Status post hysterectomy. 15. Status post L4-L5 diskectomy and laminectomy and history of dorsal column stimulator. 16. Status post tonsillectomy. MEDICATIONS: 1. Tylenol. 2. Albuterol. 3. Aripiprazole. 4. Ceftriaxone 1 g a day. 5. Diazepam as needed. 6. Duloxetine. 7. Famotidine. 8. Heparin flush through the port. 9. Hydrocortisone 50 mg every 8 hours. 10. Dilaudid as needed. 11. Loperamide as needed. 12. Morphine as needed. 13. Nystatin swish and spit. 14. Potassium. 15. Pravastatin. 16. Trazodone. ALLERGIES: ASPIRIN, CODEINE, and TAPE. FAMILY HISTORY: Sister with lung cancer. Mother with breast cancer. SOCIAL HISTORY: She lives in [place]. She has a pet cat. REVIEW OF SYSTEMS: All negative, except as noted above to a 12-point review. PHYSICAL EXAM: Vital Signs: Temperature is 37, heart rate 80, respiratory rate 16, blood pressure 107/56, oxygen saturation 95% on 2 L via nasal cannula. In general, she is awake, not in distress. Neurologic: She is oriented x3, follows commands. HEENT: There is no conjunctival hemorrhage. Oropharynx without lesions. Neck: Supple without mass. Heart is regular rate and rhythm without murmurs, rubs, or gallops. Lungs: Clear to auscultation bilaterally. Abdomen: Soft, nontender, nondistended. There are bowel sounds present. Skin: There are diffuse erythematous macules and patch on the upper extremities and chest which is blanching. The right lower extremity, there is diffuse edema below the knee with diffuse erythema and mild tenderness. Musculoskeletal: Right Ankle: There is tenderness to palpation and with flexion and extension. In the right knee, there is tightness, but not pain with active and passive flexion and extension. There is a right buttock generator for her dorsal column stimulator, which is not tender or erythematous. DIAGNOSTIC STUDIES/LAB DATA: White blood cell count 3.1, hemoglobin 8.5, platelets 51. Creatinine is 0.4. Please see impression and recommendation outlined above, which I discussed with Randa Leo NP. Thanks for asking me to see Ms. Aguiar in consultation. [id number]/[facility] #: [id number] [facility] HOSPITALJovita
[2018-08-22 15:57] LABS: Albumin 2.4 g/dL (3.2-5.2); Calcium 7.7 mg/dL (8.6-10.3); Total Bilirubin 0.3 mg/dL (0.2-1.0)
[2018-08-22 16:03] LABS: Albumin/Globulin Ratio 1.3 (1-3); BUN/Creatinine Ratio 16.4 (8-20); EGFR African American 135.5 (>60); Globulin 1.8 g/dL (2-4); Total Protein 4.2 g/dL (6.4-8.9)
[2018-08-22] MEDS ORDERED: Warfarin TAB(*) 3 MG PO SCH (17:00)
[2018-08-22] MEDS ORDERED: KCL 20 MEQ/100 ML IVPREMIX* 20 MEQ/100 ML BAG ONE (17:29)
[2018-08-22] MEDS: DULoxetine DR CAP* 60 MG CAP.DR PO SCH (17:34)
[2018-08-22] MEDS: traZODone TAB* 100 MG PO SCH (21:02)
[2018-08-22] MEDS: ARIPiprazole TAB* 5 MG PO SCH (21:03)
[2018-08-22] MEDS: CMC:Pravastatin (NF) 20 MG TAB PO SCH (21:03)
[2018-08-22] MEDS: cefTRIAXone* 1 GM in NS 0.9% 50 ML BAG IVPB SCH (21:52)
[2018-08-23] MEDS: [UNRECOGNIZED DRUG - OTHER] PO SCH ×4 (00:08→22:14)
[2018-08-23] MEDS ORDERED: Baclofen TAB* 20 MG PO PRN (02:19)
[2018-08-23] MEDS ORDERED: Baclofen TAB* 10 MG PO PRN (03:00)
[2018-08-23] MEDS: Morphine TAB Extended Release (*) 30 MG TAB.ER PO SCH ×3 (05:41→21:40)
[2018-08-23] MEDS: HYDROmorphone INJ1* 1 MG/ML SYRINGE IV SLOW PU PRN ×2 (05:45→18:45)
[2018-08-23] MEDS: Hydrocortisone INJ* 100 MG VIAL IV SCH (06:18)
[2018-08-23 06:59] LABS: Hematocrit 24 % (35-47); Hemoglobin 8.3 g/dL (12.0-16.0); Mean Corpuscular HGB Conc 35 g/dL (31-36); Mean Corpuscular Hemoglobin 35 pg (27-31); Mean Corpuscular Volume 101 fL (80-97); Mean Platelet Volume 8.7 fL (7.4-10.4); Platelet Count 35 10^3/uL (150-450); Red Blood Count 2.37 10^6 /uL (3.70-4.87); Red Cell Distribution Width 16 % (10-15); White Blood Count 1.7 10^3/uL (3.5-10.8)
[2018-08-23 07:08] LABS: Albumin 2.4 g/dL (3.2-5.2); Albumin/Globulin Ratio 1.1 (1-3); BUN/Creatinine Ratio 12.2 (8-20); Calcium 7.3 mg/dL (8.6-10.3); EGFR African American 190.2 (>60); EGFR Non-African American 157.2 (>60); Globulin 2.2 g/dL (2-4); Total Bilirubin 0.4 mg/dL (0.2-1.0); Total Protein 4.6 g/dL (6.4-8.9)
[2018-08-23 07:12] LABS: Potassium 2.7 mmol/L (3.5-5.0)
[2018-08-23 07:37] LABS: INR 1.6 (0.82-1.09)
[2018-08-23 08:50] LABS: ABS Lymphocytes 0.3 10^3/ul (1.0-4.8); ABS Monocytes 0.2 10^3/ul (0-0.8); ABS Neutrophils 1.2 10^3/ul (1.5-7.7); Eosinophil % 0.1 %; Lymphocyte % 17.1 %
[2018-08-23] MEDS: Nystatin SUSPENSION* 100000 UNITS/ML 5 ML UDC PO SCH ×4 (09:14→21:40)
[2018-08-23] MEDS: Potassium Chlor TAB* 10 MEQ TAB.ER PO SCH ×2 (09:15→21:42)
[2018-08-23] MEDS: Famotidine TAB* 20 MG PO SCH (09:15)
[2018-08-23] MEDS: Folic Acid TAB* 1 MG PO SCH (09:15)
[2018-08-23] MEDS: Docusate CAP* 100 MG PO SCH ×2 (09:22→21:43)
--- NOTE | 2018-08-23 10:51 | PN ---
Progress Note - Progress Note Date of Service: 08/23/18 SOAP: Subjective: []Feeling fine. Right leg still sore, no worse. Appetite still so-so. Tired. Medications: Acetaminophen (Tylenol Tab*) 650 mg PO Q6H PRN PRN Reason: FEVER Last Admin: 08/19/18 23:27 Dose: 650 mg Albuterol (Ventolin Hfa Inhaler*) 2 puff INH Q4HR PRN PRN Reason: CONGESTION Albuterol/Ipratropium (Duoneb (Albuterol 2.5 Mg/Ipratropium 0.5 Mg)) 1 neb INH Q6H PRN PRN Reason: SOB/WHEEZING Aripiprazole (Abilify Tab*) 5 mg PO BEDTIME [facility] Last Admin: 08/22/18 21:03 Dose: 5 mg Baclofen (Lioresal Tab*) 20 mg PO Q24H PRN PRN Reason: SPASMS Diazepam (Valium Tab(*)) 5 mg PO TID PRN PRN Reason: ANXIETY Docusate Sodium (Colace Cap*) 100 mg PO BID [facility] Last Admin: 08/23/18 09:22 Dose: Not Given Duloxetine HCl (Cymbalta Cap*) 60 mg PO QPM [facility] Last Admin: 08/22/18 17:34 Dose: 60 mg Famotidine (Pepcid Tab*) 40 mg PO DAILY [facility] Last Admin: 08/23/18 09:15 Dose: 40 mg Folic Acid (Folvite Tab*) 1 mg PO DAILY [facility] Last Admin: 08/23/18 09:15 Dose: 1 mg Heparin Sodium (Porcine) (Heparin Flush Port (Ivad)) 5 ml FLUSH DAILY [facility]; Protocol Last Admin: 08/23/18 09:14 Dose: 5 ml Hydrocortisone Sodium Succinate (Solu-Cortef*) 50 mg IV Q8H [facility] Last Admin: 08/23/18 06:18 Dose: 50 mg Hydromorphone HCl (Dilaudid Inj1s*) 0.5 mg IV SLOW PU Q4H PRN PRN Reason: PAIN Last Admin: 08/23/18 05:45 Dose: 0.5 mg Ceftriaxone Sodium 1 gm/ (Sodium Chloride) 50 mls @ 200 mls/hr IVPB Q24H [facility] Last Admin: 08/22/18 21:52 Dose: 200 mls/hr Potassium Chloride (Potassium Chloride 20 Meq/100 Ml Ivpremix*) 20 meq in 100 mls @ 50 mls/hr IV Q2H [facility] Stop: 08/23/18 16:59 Loperamide HCl (Imodium Cap*) 2 mg PO .SEE DIRECTIONS PRN PRN Reason: DIARRHEA Last Admin: 08/22/18 17:34 Dose: 2 mg Morphine Sulfate (Ms Contin(*)) 60 mg PO Q8H PRN PRN Reason: PAIN Last Admin: 08/21/18 23:59 Dose: 60 mg Morphine Sulfate (Ms Contin(*)) 30 mg PO Q8HR [facility] Last Admin: 08/23/18 05:41 Dose: 30 mg Nft* (Orphenadrine Citrate 100 Mg Tablet) 100 mg PO TID [facility] Last Admin: 08/23/18 09:17 Dose: Not Given Nystatin (Nystatin Suspension*) 500,000 units PO QID [facility] Stop: 08/28/18 10:15 Last Admin: 08/23/18 09:14 Dose: 500,000 units Potassium Chloride (Klor Con Er Tab*) 20 meq PO BID [facility] Last Admin: 08/23/18 09:15 Dose: 20 meq Pravastatin Sodium (Pravachol (Nf)) 10 mg PO BEDTIME [facility] Last Admin: 08/22/18 21:03 Dose: 10 mg Trazodone HCl (Desyrel Tab*) 100 mg PO BEDTIME [facility] Last Admin: 08/22/18 21:02 Dose: 100 mg Objective: [] Vital Signs Temp Pulse Resp BP Pulse Ox 98.7 F 72 18 100/55 94 08/23/18 04:42 08/23/18 08:00 08/23/18 08:00 08/23/18 04:42 08/23/18 08:00 A&Ox3, EOMI, neuro grossly non-focal HRR, S1S2, II/ ROSANNA LS clear +BS Right leg +erythema and edema Laboratory Results - last 24 hr 08/21/18 08/22/18 08/22/18 05:51 12:16 12:16 WBC RBC Hgb Hct MCV MCH MCHC RDW Plt Count MPV Neut % (Auto) Lymph % (Auto) [place] % (Auto) Eos % (Auto) Baso % (Auto) Absolute Neuts (auto) Absolute Lymphs (auto) Absolute Monos (auto) Absolute Eos (auto) Absolute Basos (auto) Absolute Nucleated RBC Neutrophils % Lymphocytes % Monocytes % Nucleated RBC % Normal RBC Morphology Anisocytosis Macrocytosis Hem Pathologist Commnt INR (Anticoag Therapy) 4.39 H Sodium 142 Potassium 3.0 L Chloride 111 Carbon Dioxide 28 Anion Gap 3 BUN 9 Creatinine 0.55 Est GFR ( Amer) 135.5 Est GFR (Non-Af Amer) 112.0 BUN/Creatinine Ratio 16.4 Glucose 131 H Calcium 7.7 L Total Bilirubin 0.30 AST 43 H ALT 20 Alkaline Phosphatase 64 Total Protein 4.2 L Albumin 2.4 L Globulin 1.8 L Albumin/Globulin Ratio 1.3 08/23/18 08/23/18 08/23/18 06:07 06:30 06:30 WBC 1.7 L RBC 2.37 L Hgb 8.3 L Hct 24 L MCV 101 H MCH 35 H MCHC 35 RDW 16 H Plt Count 35 L MPV 8.7 Neut % (Auto) 69.7 Lymph % (Auto) 17.1 Gates % (Auto) 13.1 Eos % (Auto) 0.1 Baso % (Auto) 0.0 Absolute Neuts (auto) 1.2 L Absolute Lymphs (auto) 0.3 L Absolute Monos (auto) 0.2 Absolute Eos (auto) 0.0 Absolute Basos (auto) 0.0 Absolute Nucleated RBC 0.0 Neutrophils % 72.0 Lymphocytes % 20.0 Monocytes % 8.0 Nucleated RBC % 0.0 Normal RBC Morphology Not Reportable Anisocytosis 2+ Macrocytosis 1+ Hem Pathologist Commnt INR (Anticoag Therapy) 1.60 H Sodium 143 Potassium 2.7 L* Chloride 110 Carbon Dioxide 29 Anion Gap 4 BUN 5 L Creatinine 0.41 L Est GFR ( Amer) 190.2 Est GFR (Non-Af Amer) 157.2 BUN/Creatinine Ratio 12.2 Glucose 116 H Calcium 7.3 L Total Bilirubin 0.40 AST 35 ALT 24 Alkaline Phosphatase 64 Total Protein 4.6 L Albumin 2.4 L Globulin 2.2 Albumin/Globulin Ratio 1.1 Assessment: []62 yo female with metastatic NSCLC on single agent pemetrexed, C9D8, admitted with septic shock due to group A bacteremia related to RLE cellulitis. Her blood cultures have cleared and she is improving overall, however her cellulitis remains significant and she is now nadiring with neutropenia and thrombocytopenia; fortunately her CT does not appear to show a more severe infection (unable to get MRI d/t stimulator). Plan: []1. Septic shock secondary to RLE cellulitis: improving - 4/4 blood cx growing group A strep, repeat cx clear after 24h - abx changed per ID, now on clindamycin - she does have a port in place which may become colonized in the setting of gram + bacteremia, will be vigilant to eval for port colonization as she improves, port can be accessed and used for IV abx administration - TTE negative for vegetation - ID consultation appreciated, CT obtained yesterday without obvious osteomyelitis 2. NSCLC, metastatic: C9D8 pemetrexed - pancytopenia, cont. daily counts - neutropenic precautions - hold anticoagulants 3. Electrolyte abnormalities: likely related to poor PO intake and diarrhea from abx. as well as positive fluid balance last several days - cont. PRN imodium - dietary consult - replace with IV and cont. to follow daily labs 4. h/o PE: coumadin on hold d/t supratherapuetic INR yesterday, now normalized - cont. to hold coumadin d/t thrombocytopenia and may need to bridge with Lovenox once restarting 5. 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 FULL CODE
[2018-08-23 11:06] LABS: Magnesium 1.9 mg/dL (1.9-2.7)
[2018-08-23] MEDS: KCL 20 MEQ/100 ML IVPREMIX* 20 MEQ/100 ML BAG IV SCH ×3 (11:35→17:53)
--- NOTE | 2018-08-23 14:15 | PN ---
Progress Note - Progress Note Date of Service: 08/23/18 SOAP: Subjective: CC: cellulitis HPI: 63 year old woman with lung cancer, on chemotherapy, with right leg cellulitis. Pain and swelling a little better, less painful to bear weight and walk around. No fever, rash, or diarrhea. Couldn't have MRI due to spine stimulator. Objective: Vital Signs Temp 37.1 C 08/23/18 04:42 Pulse 72 08/23/18 08:00 Resp 18 08/23/18 12:55 BP 100/55 08/23/18 04:42 Pulse Ox 94 08/23/18 08:00 Intake & Output 08/22/18 08/23/18 08/23/18 18:59 06:59 18:59 Intake Total 1040 0 480 Output Total 400 2400 Balance 640 -2400 480 Weight 124 lb 12.506 oz Intake: IV Fluids 200 NS 200 IVPB 200 Magnesium 100 NSKCl 100 Oral 640 0 480 Output: Urine 400 2400 Other: Estimated Void Medium # Bowel Movements 0 # Voids 2 Gen:awake, no distress HEENT: no thrush Heart:RRR no murmur Lungs:CTA BL Abd:+BS NTND soft Skin: erythematous macules on trunk MSK: Right lower leg tender, mild diffuse erythema, receded from ankle, ankle no pain with passive ROM; tender to palpation Laboratory Results - last 24 hr 08/21/18 08/22/18 08/23/18 05:51 12:16 06:07 WBC RBC Hgb Hct MCV MCH MCHC RDW Plt Count MPV Neut % (Auto) Lymph % (Auto) [place] % (Auto) Eos % (Auto) Baso % (Auto) Absolute Neuts (auto) Absolute Lymphs (auto) Absolute Monos (auto) Absolute Eos (auto) Absolute Basos (auto) Absolute Nucleated RBC Neutrophils % Lymphocytes % Monocytes % Nucleated RBC % Normal RBC Morphology Anisocytosis Macrocytosis Hem Pathologist Commnt INR (Anticoag Therapy) 1.60 H Sodium 142 Potassium 3.0 L Chloride 111 Carbon Dioxide 28 Anion Gap 3 BUN 9 Creatinine 0.55 Est GFR ( Amer) 135.5 Est GFR (Non-Af Amer) 112.0 BUN/Creatinine Ratio 16.4 Glucose 131 H Calcium 7.7 L Magnesium Total Bilirubin 0.30 AST 43 H ALT 20 Alkaline Phosphatase 64 Total Protein 4.2 L Albumin 2.4 L Globulin 1.8 L Albumin/Globulin Ratio 1.3 08/23/18 08/23/18 06:30 06:30 WBC 1.7 L RBC 2.37 L Hgb 8.3 L Hct 24 L MCV 101 H MCH 35 H MCHC 35 RDW 16 H Plt Count 35 L MPV 8.7 Neut % (Auto) 69.7 Lymph % (Auto) 17.1 [place] % (Auto) 13.1 Eos % (Auto) 0.1 Baso % (Auto) 0.0 Absolute Neuts (auto) 1.2 L Absolute Lymphs (auto) 0.3 L Absolute Monos (auto) 0.2 Absolute Eos (auto) 0.0 Absolute Basos (auto) 0.0 Absolute Nucleated RBC 0.0 Neutrophils % 72.0 Lymphocytes % 20.0 Monocytes % 8.0 Nucleated RBC % 0.0 Normal RBC Morphology Not Reportable Anisocytosis 2+ Macrocytosis 1+ Hem Pathologist Commnt INR (Anticoag Therapy) Sodium 143 Potassium 2.7 L* Chloride 110 Carbon Dioxide 29 Anion Gap 4 BUN 5 L Creatinine 0.41 L Est GFR ( Amer) 190.2 Est GFR (Non-Af Amer) 157.2 BUN/Creatinine Ratio 12.2 Glucose 116 H Calcium 7.3 L Magnesium 1.9 Total Bilirubin 0.40 AST 35 ALT 24 Alkaline Phosphatase 64 Total Protein 4.6 L Albumin 2.4 L Globulin 2.2 Albumin/Globulin Ratio 1.1 Assessment: 1. Grp A Strep cellulitis; right leg. 2. Right ankle pain, exam improving, I think septic joint or tenosynovitis less likely 3. Stage 4 lung cancer, on chemotherapy Plan: 1. continue antibiotics, rest, anti-inflammatory medications; will change ceftriaxone to clindamycin 600 mg IV Q8hrs
[2018-08-23] MEDS ORDERED: Clindamycin 600 MG IVPREMIX(* 600 MG/50 ML SDV IV SCH (15:00)
[2018-08-23] MEDS: Dronabinol CAP* 2.5 MG PO SCH (17:03)
[2018-08-23] MEDS: Dexamethasone TAB* 1 MG PO SCH ×2 (17:03→21:42)
[2018-08-23] MEDS: Clindamycin 600 MG IVPREMIX(* 600 MG/50 ML SDV IV SCH (17:04)
[2018-08-23] MEDS: DULoxetine DR CAP* 60 MG CAP.DR PO SCH (18:33)
[2018-08-23] MEDS: CMC:Pravastatin (NF) 20 MG TAB PO SCH (21:40)
[2018-08-23] MEDS: ARIPiprazole TAB* 5 MG PO SCH (21:42)
[2018-08-23] MEDS: traZODone TAB* 100 MG PO SCH (21:42)
[2018-08-24] MEDS: Clindamycin 600 MG IVPREMIX(* 600 MG/50 ML SDV IV SCH ×3 (01:47→17:55)
[2018-08-24] MEDS: HYDROmorphone INJ1* 1 MG/ML SYRINGE IV SLOW PU PRN ×3 (01:47→20:00)
[2018-08-24] MEDS: Morphine TAB Extended Release (*) 30 MG TAB.ER PO SCH ×3 (05:43→22:30)
[2018-08-24 05:55] LABS: Hematocrit 24 % (35-47); Hemoglobin 8.4 g/dL (12.0-16.0); Mean Corpuscular HGB Conc 35 g/dL (31-36); Mean Corpuscular Hemoglobin 35 pg (27-31); Mean Corpuscular Volume 101 fL (80-97); Mean Platelet Volume 9.3 fL (7.4-10.4); Platelet Count 32 10^3/uL (150-450); Red Blood Count 2.42 10^6 /uL (3.70-4.87); Red Cell Distribution Width 16 % (10-15); White Blood Count 2.3 10^3/uL (3.5-10.8)
[2018-08-24 06:08] LABS: Albumin 2.6 g/dL (3.2-5.2); Albumin/Globulin Ratio 1.1 (1-3); BUN/Creatinine Ratio 16.7 (8-20); Calcium 7.7 mg/dL (8.6-10.3); EGFR Non-African American 152.9 (>60); Globulin 2.3 g/dL (2-4); Magnesium 1.8 mg/dL (1.9-2.7); Potassium 3.8 mmol/L (3.5-5.0); Total Bilirubin 0.4 mg/dL (0.2-1.0); Total Protein 4.9 g/dL (6.4-8.9)
[2018-08-24 07:04] LABS: ABS Lymphocytes 0.4 10^3/ul (1.0-4.8); ABS Monocytes 0.3 10^3/ul (0-0.8); ABS Neutrophils 1.6 10^3/ul (1.5-7.7); Eosinophil % 0.1 %; Lymphocyte % 17.2 %
[2018-08-24 07:05] LABS: INR 1.33 (0.82-1.09)
[2018-08-24] MEDS: Dronabinol CAP* 2.5 MG PO SCH ×3 (08:22→17:55)
[2018-08-24] MEDS: Dexamethasone TAB* 1 MG PO SCH ×2 (08:24→18:14)
[2018-08-24] MEDS: Nystatin SUSPENSION* 100000 UNITS/ML 5 ML UDC PO SCH ×4 (08:24→20:15)
[2018-08-24] MEDS: Potassium Chlor TAB* 10 MEQ TAB.ER PO SCH ×2 (08:24→20:16)
[2018-08-24] MEDS: Folic Acid TAB* 1 MG PO SCH (08:24)
[2018-08-24] MEDS: Famotidine TAB* 20 MG PO SCH (08:25)
[2018-08-24] MEDS: [UNRECOGNIZED DRUG - OTHER] PO SCH ×3 (09:01→20:17)
[2018-08-24] MEDS: Docusate CAP* 100 MG PO SCH ×2 (09:01→20:06)
--- NOTE | 2018-08-24 11:30 | PN ---
Progress Note - Progress Note Date of Service: 08/24/18 SOAP: Subjective: []Feels OK, tired, "but all there is to do is sleep" Wants to go home. Has been walking to bathroom. Pain RLE remains but controlled. Medications: Acetaminophen (Tylenol Tab*) 650 mg PO Q6H PRN PRN Reason: FEVER Last Admin: 08/19/18 23:27 Dose: 650 mg Albuterol (Ventolin Hfa Inhaler*) 2 puff INH Q4HR PRN PRN Reason: CONGESTION Albuterol/Ipratropium (Duoneb (Albuterol 2.5 Mg/Ipratropium 0.5 Mg)) 1 neb INH Q6H PRN PRN Reason: SOB/WHEEZING Aripiprazole (Abilify Tab*) 5 mg PO BEDTIME [facility] Last Admin: 08/23/18 21:42 Dose: 5 mg Baclofen (Lioresal Tab*) 20 mg PO Q24H PRN PRN Reason: SPASMS Last Admin: 08/23/18 21:45 Dose: 20 mg Dexamethasone (Decadron Tab*) 2 mg PO BID WITH MEALS [facility] Last Admin: 08/24/18 08:24 Dose: 2 mg Diazepam (Valium Tab(*)) 5 mg PO TID PRN PRN Reason: ANXIETY Docusate Sodium (Colace Cap*) 100 mg PO BID [facility] Last Admin: 08/24/18 09:01 Dose: Not Given Dronabinol (Marinol Cap*) 2.5 mg PO AC [facility] Last Admin: 08/24/18 08:22 Dose: 2.5 mg Duloxetine HCl (Cymbalta Cap*) 60 mg PO QPM [facility] Last Admin: 08/23/18 18:33 Dose: 60 mg Famotidine (Pepcid Tab*) 40 mg PO DAILY [facility] Last Admin: 08/24/18 08:25 Dose: 40 mg Folic Acid (Folvite Tab*) 1 mg PO DAILY [facility] Last Admin: 08/24/18 08:24 Dose: 1 mg Heparin Sodium (Porcine) (Heparin Flush Port (Ivad)) 5 ml FLUSH DAILY [facility]; Protocol Last Admin: 08/24/18 09:01 Dose: Not Given Hydromorphone HCl (Dilaudid Inj1s*) 0.5 mg IV SLOW PU Q4H PRN PRN Reason: PAIN Last Admin: 08/24/18 01:47 Dose: 0.5 mg Clindamycin HCl/Dextrose (Cleocin 600 Mg Ivpremix(*) Sdv) 600 mg in 50 mls @ 100 mls/hr IV Q8H [facility] Last Admin: 08/24/18 08:25 Dose: 100 mls/hr Loperamide HCl (Imodium Cap*) 2 mg PO .SEE DIRECTIONS PRN PRN Reason: DIARRHEA Last Admin: 08/22/18 17:34 Dose: 2 mg Morphine Sulfate (Ms Contin(*)) 60 mg PO Q8H PRN PRN Reason: PAIN Last Admin: 08/21/18 23:59 Dose: 60 mg Morphine Sulfate (Ms Contin(*)) 30 mg PO Q8HR [facility] Last Admin: 08/24/18 05:43 Dose: 30 mg Nft* (Orphenadrine Citrate 100 Mg Tablet) 100 mg PO TID [facility] Last Admin: 08/24/18 09:01 Dose: Not Given Nystatin (Nystatin Suspension*) 500,000 units PO QID [facility] Stop: 08/28/18 10:15 Last Admin: 08/24/18 08:24 Dose: 500,000 units Potassium Chloride (Klor Con Er Tab*) 20 meq PO BID [facility] Last Admin: 08/24/18 08:24 Dose: 20 meq Pravastatin Sodium (Pravachol (Nf)) 10 mg PO BEDTIME [facility] Last Admin: 08/23/18 21:40 Dose: 10 mg Trazodone HCl (Desyrel Tab*) 100 mg PO BEDTIME [facility] Last Admin: 08/23/18 21:42 Dose: 100 mg Objective: [] Vital Signs Temp Pulse Resp BP Pulse Ox 96.8 F 73 17 145/73 100 08/24/18 07:15 08/24/18 07:15 08/24/18 08:22 08/24/18 07:15 08/24/18 08:00 A&Ox3, EOMI, neuro grossly non-focal HALL HRR, II/ ROSANNA LS clear +BS, abd. soft and non-tender +PP=bilat Right LE with erythema, pink extending up back of thigh - appears slightly improved from yesterday - warm with +2 edema, remains tender Laboratory Results - last 24 hr 08/23/18 08/24/18 08/24/18 06:30 05:40 05:40 WBC 2.3 L RBC 2.42 L Hgb 8.4 L Hct 24 L MCV 101 H MCH 35 H MCHC 35 RDW 16 H Plt Count 32 L MPV 9.3 Neut % (Auto) 70.4 Lymph % (Auto) 17.2 [place] % (Auto) 12.2 Eos % (Auto) 0.1 Baso % (Auto) 0.1 Absolute Neuts (auto) 1.6 Absolute Lymphs (auto) 0.4 L Absolute Monos (auto) 0.3 Absolute Eos (auto) 0.0 Absolute Basos (auto) 0.0 Absolute Nucleated RBC 0.0 Neutrophils % 77.0 Lymphocytes % 14.0 Monocytes % 9.0 Nucleated RBC % 0.0 Normal RBC Morphology Not Reportable Macrocytosis 1+ Hem Pathologist Commnt INR (Anticoag Therapy) 1.33 H Sodium 143 Potassium 3.8 Chloride 112 H Carbon Dioxide 28 Anion Gap 3 BUN 7 Creatinine 0.42 L Est GFR ( Amer) 185.0 Est GFR (Non-Af Amer) 152.9 BUN/Creatinine Ratio 16.7 Glucose 140 H Calcium 7.7 L Magnesium 1.8 L Total Bilirubin 0.40 AST 31 ALT 25 Alkaline Phosphatase 72 Total Protein 4.9 L Albumin 2.6 L Globulin 2.3 Albumin/Globulin Ratio 1.1 Microbiology 08/19/18 23:45 Aerobic Blood Culture - Preliminary Blood Venous No Growth Day 4 Anaerobic Blood Culture - Preliminary No Growth Day 4 08/19/18 23:35 Aerobic Blood Culture - Preliminary Blood Venous No Growth Day 4 Anaerobic Blood Culture - Preliminary No Growth Day 4 08/18/18 21:48 Aerobic Blood Culture - Final Blood Venous Strep Pyogenes (Grp A) Anaerobic Blood Culture - Final Strep Pyogenes (Grp A) 08/18/18 21:48 Aerobic Blood Culture - Final Blood Venous Strep Pyogenes (Grp A) Anaerobic Blood Culture - Final Strep Group A 08/19/18 02:10 Nasal Screen MRSA (PCR) - Final Nasal Mrsa Not Detected Assessment: []62 yo female with metastatic NSCLC on single agent pemetrexed, C9D9, admitted with septic shock due to group A bacteremia related to RLE cellulitis. Her blood cultures have cleared and she is improving overall, however her cellulitis remains significant, fortunately her CT does not appear to show a more severe infection (unable to get MRI d/t stimulator). Plan: []1. Septic shock secondary to group A strep bactermia: resolved - repeat cultures neg. after 24h - source likely RLE cellulitis that remains - SYLVESTER negative for vegatation - cont. abx. via port d/t risk of colonization 2. RLE cellulitis: seems a little better than yesterday - cont. clindamycin as per ID, length as per recommendations 3. NSCLC, metastatic: C9D9 pemetrexed single agent - currently in ruby, currently grade 3 thrombocytopenia - monitor daily counts 4. Electrolyte abnormalities: resolved 5. h/o PE: coumadin on holf d/t thrombocytopenia and may need to bridge with Lovenox once restarting 6. 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 FULL CODE Dispo: dependent on IV abx. need, ID recommendation re: length of time pending - she lives at home and has been amb. to bathroom with walker thus far though remains weak following acute illness
[2018-08-24] MEDS: DULoxetine DR CAP* 60 MG CAP.DR PO SCH (18:14)
[2018-08-24] MEDS: traZODone TAB* 100 MG PO SCH (20:16)
[2018-08-24] MEDS: ARIPiprazole TAB* 5 MG PO SCH (22:30)
[2018-08-24] MEDS: CMC:Pravastatin (NF) 20 MG TAB PO SCH (22:31)
[2018-08-25] MEDS: Clindamycin 600 MG IVPREMIX(* 600 MG/50 ML SDV IV SCH ×3 (01:34→17:37)
[2018-08-25] MEDS: Morphine TAB Extended Release (*) 30 MG TAB.ER PO SCH ×4 (05:23→22:15)
[2018-08-25 05:31] LABS: Hematocrit 24 % (35-47); Hemoglobin 8.2 g/dL (12.0-16.0); Mean Corpuscular HGB Conc 34 g/dL (31-36); Mean Corpuscular Hemoglobin 35 pg (27-31); Mean Corpuscular Volume 101 fL (80-97); Mean Platelet Volume 10.1 fL (7.4-10.4); Platelet Count 49 10^3/uL (150-450); Red Blood Count 2.35 10^6 /uL (3.70-4.87); Red Cell Distribution Width 16 % (10-15); White Blood Count 4.4 10^3/uL (3.5-10.8)
[2018-08-25 05:51] LABS: Albumin 2.6 g/dL (3.2-5.2); Albumin/Globulin Ratio 1.2 (1-3); BUN/Creatinine Ratio 13.7 (8-20); Calcium 7.7 mg/dL (8.6-10.3); EGFR African American 147.9 (>60); EGFR Non-African American 122.2 (>60); Globulin 2.2 g/dL (2-4); Magnesium 1.7 mg/dL (1.9-2.7); Potassium 3.7 mmol/L (3.5-5.0); Total Bilirubin 0.4 mg/dL (0.2-1.0); Total Protein 4.8 g/dL (6.4-8.9)
[2018-08-25 06:23] LABS: ABS Lymphocytes 0.7 10^3/ul (1.0-4.8); ABS Monocytes 0.3 10^3/ul (0-0.8); ABS Neutrophils 3.4 10^3/ul (1.5-7.7)
[2018-08-25 06:24] LABS: Lymphocyte % 16.2 %
--- NOTE | 2018-08-25 07:58 | PN ---
Progress Note - Progress Note Date of Service: 08/25/18 SOAP: Subjective: feeling a little better but very weak. diarrhea continues. thrush better. Objective: Vital Signs Temp Pulse Resp BP Pulse Ox 97.3 F 66 18 120/70 98 08/25/18 02:51 08/25/18 02:51 08/25/18 05:23 08/25/18 02:51 08/25/18 02:51 sitting up in nad perr eomi no thrush cta bl s1 s2 nl II/ georgi soft nt +bs 2+ RLE edema erythema within lines 1+ LLE edema w mild erythema and warmth (per patient chronic) A+O x 3 port clean Acetaminophen (Tylenol Tab*) 650 mg PO Q6H PRN PRN Reason: FEVER Last Admin: 08/19/18 23:27 Dose: 650 mg Albuterol (Ventolin Hfa Inhaler*) 2 puff INH Q4HR PRN PRN Reason: CONGESTION Albuterol/Ipratropium (Duoneb (Albuterol 2.5 Mg/Ipratropium 0.5 Mg)) 1 neb INH Q6H PRN PRN Reason: SOB/WHEEZING Aripiprazole (Abilify Tab*) 5 mg PO BEDTIME [facility] Last Admin: 08/24/18 22:30 Dose: 5 mg Baclofen (Lioresal Tab*) 20 mg PO Q24H PRN PRN Reason: SPASMS Last Admin: 08/23/18 21:45 Dose: 20 mg Dexamethasone (Decadron Tab*) 2 mg PO BID WITH MEALS [facility] Last Admin: 08/24/18 18:14 Dose: 2 mg Diazepam (Valium Tab(*)) 5 mg PO TID PRN PRN Reason: ANXIETY Docusate Sodium (Colace Cap*) 100 mg PO BID [facility] Last Admin: 08/24/18 20:06 Dose: Not Given Dronabinol (Marinol Cap*) 2.5 mg PO AC [facility] Last Admin: 08/24/18 17:55 Dose: 2.5 mg Duloxetine HCl (Cymbalta Cap*) 60 mg PO QPM [facility] Last Admin: 08/24/18 18:14 Dose: 60 mg Famotidine (Pepcid Tab*) 40 mg PO DAILY [facility] Last Admin: 08/24/18 08:25 Dose: 40 mg Folic Acid (Folvite Tab*) 1 mg PO DAILY [facility] Last Admin: 08/24/18 08:24 Dose: 1 mg Heparin Sodium (Porcine) (Heparin Flush Port (Ivad)) 5 ml FLUSH DAILY [facility]; Protocol Last Admin: 08/24/18 09:01 Dose: Not Given Hydromorphone HCl (Dilaudid Inj1s*) 0.5 mg IV SLOW PU Q4H PRN PRN Reason: PAIN Last Admin: 08/24/18 20:00 Dose: 0.5 mg Clindamycin HCl/Dextrose (Cleocin 600 Mg Ivpremix(*) Sdv) 600 mg in 50 mls @ 100 mls/hr IV Q8H [facility] Last Admin: 08/25/18 01:34 Dose: 100 mls/hr Loperamide HCl (Imodium Cap*) 2 mg PO .SEE DIRECTIONS PRN PRN Reason: DIARRHEA Last Admin: 08/22/18 17:34 Dose: 2 mg Morphine Sulfate (Ms Contin(*)) 60 mg PO Q8H PRN PRN Reason: PAIN Last Admin: 08/21/18 23:59 Dose: 60 mg Morphine Sulfate (Ms Contin(*)) 30 mg PO Q8HR [facility] Last Admin: 08/25/18 05:23 Dose: 30 mg Nft* (Orphenadrine Citrate 100 Mg Tablet) 100 mg PO TID [facility] Last Admin: 08/24/18 20:17 Dose: Not Given Nystatin (Nystatin Suspension*) 500,000 units PO QID [facility] Stop: 08/28/18 10:15 Last Admin: 08/24/18 20:15 Dose: 500,000 units Potassium Chloride (Klor Con Er Tab*) 20 meq PO BID [facility] Last Admin: 08/24/18 20:16 Dose: 20 meq Pravastatin Sodium (Pravachol (Nf)) 10 mg PO BEDTIME [facility] Last Admin: 08/24/18 22:31 Dose: 10 mg Trazodone HCl (Desyrel Tab*) 100 mg PO BEDTIME [facility] Last Admin: 08/24/18 20:16 Dose: 100 mg Assessment: 62 yo female with metastatic NSCLC on single agent pemetrexed, C9D10, admitted with septic shock due to group A bacteremia related to RLE cellulitis. She does report that she is improving, but Plan: 1. Septic shock secondary to group A strep bactermia: resolved - repeat cultures neg. after 24h - source likely RLE cellulitis that remains - SYLVESTER negative for vegatation - cont. abx. via port d/t risk of colonization 2. RLE cellulitis: seems a little better than yesterday - cont. clindamycin as per ID, length as per recommendations 3. NSCLC, metastatic: C9D9 pemetrexed single agent - currently in ruby, currently grade 3 thrombocytopenia, improving - monitor daily counts 4. h/o PE: coumadin on hold d/t thrombocytopenia. can likely resume tomorrow if plts >50k with lovenox bridge 5. 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 FULL CODE Dispo: dependent on IV abx. need, ID recommendation re: length of time pending - like EDUARDO
[2018-08-25 08:27] LABS: INR 1.14 (0.82-1.09)
[2018-08-25] MEDS: Potassium Chlor TAB* 10 MEQ TAB.ER PO SCH ×2 (09:01→21:40)
[2018-08-25] MEDS: Folic Acid TAB* 1 MG PO SCH (09:01)
[2018-08-25] MEDS: Famotidine TAB* 20 MG PO SCH (09:01)
[2018-08-25] MEDS: Dexamethasone TAB* 1 MG PO SCH ×2 (09:01→17:36)
[2018-08-25] MEDS: Dronabinol CAP* 2.5 MG PO SCH ×3 (09:02→17:35)
[2018-08-25] MEDS: Nystatin SUSPENSION* 100000 UNITS/ML 5 ML UDC PO SCH ×4 (09:03→21:41)
[2018-08-25] MEDS: [UNRECOGNIZED DRUG - OTHER] PO SCH ×3 (09:03→21:25)
[2018-08-25] MEDS: Morphine TAB Extended Release (*) 30 MG TAB.ER PO PRN ×2 (09:27→17:35)
[2018-08-25] MEDS: Docusate CAP* 100 MG PO SCH ×2 (09:28→21:41)
[2018-08-25] MEDS: HYDROmorphone INJ1* 1 MG/ML SYRINGE IV SLOW PU PRN (13:40)
[2018-08-25] MEDS: DULoxetine DR CAP* 60 MG CAP.DR PO SCH (17:44)
[2018-08-25] MEDS: CMC:Pravastatin (NF) 20 MG TAB PO SCH (21:39)
[2018-08-25] MEDS: ARIPiprazole TAB* 5 MG PO SCH (21:40)
[2018-08-25] MEDS: traZODone TAB* 100 MG PO SCH (21:41)
[2018-08-26] MEDS: Clindamycin 600 MG IVPREMIX(* 600 MG/50 ML SDV IV SCH ×2 (01:03→09:06)
[2018-08-26] MEDS: Morphine TAB Extended Release (*) 30 MG TAB.ER PO PRN ×2 (01:41→09:01)
[2018-08-26] MEDS: Morphine TAB Extended Release (*) 30 MG TAB.ER PO SCH (05:30)
[2018-08-26 05:49] LABS: INR 1.08 (0.82-1.09)
[2018-08-26 05:51] LABS: ABS Monocytes 0.4 10^3/ul (0-0.8); ABS Neutrophils 4.1 10^3/ul (1.5-7.7); Eosinophil % 0.1 %; Hematocrit 25 % (35-47); Hemoglobin 8.6 g/dL (12.0-16.0); Lymphocyte % 17.5 %; Mean Corpuscular HGB Conc 35 g/dL (31-36); Mean Corpuscular Hemoglobin 35 pg (27-31); Mean Corpuscular Volume 101 fL (80-97); Mean Platelet Volume 10.3 fL (7.4-10.4); Nucleated Red Blood Cells % 0.1; Platelet Count 69 10^3/uL (150-450); Red Blood Count 2.46 10^6 /uL (3.70-4.87); Red Cell Distribution Width 16 % (10-15); White Blood Count 5.5 10^3/uL (3.5-10.8)
[2018-08-26 06:23] LABS: Albumin 2.8 g/dL (3.2-5.2); Albumin/Globulin Ratio 1.2 (1-3); BUN/Creatinine Ratio 14.3 (8-20); EGFR African American 132.7 (>60); EGFR Non-African American 109.7 (>60); Globulin 2.4 g/dL (2-4); Magnesium 1.6 mg/dL (1.9-2.7); Total Bilirubin 0.3 mg/dL (0.2-1.0); Total Protein 5.2 g/dL (6.4-8.9)
[2018-08-26] MEDS: Dronabinol CAP* 2.5 MG PO SCH ×2 (07:27→12:05)
[2018-08-26] MEDS: Nystatin SUSPENSION* 100000 UNITS/ML 5 ML UDC PO SCH ×2 (08:52→12:55)
[2018-08-26] MEDS: Folic Acid TAB* 1 MG PO SCH (08:53)
[2018-08-26] MEDS: Docusate CAP* 100 MG PO SCH (08:53)
[2018-08-26] MEDS: Famotidine TAB* 20 MG PO SCH (08:54)
[2018-08-26] MEDS: Potassium Chlor TAB* 10 MEQ TAB.ER PO SCH (08:54)
[2018-08-26] MEDS: Dexamethasone TAB* 1 MG PO SCH (08:54)
[2018-08-26] MEDS: [UNRECOGNIZED DRUG - OTHER] PO SCH (09:07)
[2018-08-26 10:42] VITALS: BP 135/70
[2018-08-26] MEDS ORDERED: Magnesium Sulfate IV* 3 GM in NS 0.9% 100 ML* 100 ML IVPB ONE (10:50)
[2018-08-26] MEDS ORDERED: NS 0.9% 100 ML* 100 ML ONE (11:04)
--- NOTE | 2018-08-26 12:23 | DS ---
DISCHARGE SUMMARY: DATE OF ADMISSION: 08/19/18 DATE OF DISCHARGE: 08/26/18 CONDITION AT DISCHARGE: Good. DISCHARGE DIAGNOSES: 1. Metastatic non-small cell lung cancer, currently on pemetrexed chemotherapy. 2. Pancytopenia secondary to chemotherapy. 3. Strep A sepsis. 4. Left lower extremity cellulitis and ulceration. 5. Chronic obstructive pulmonary disease. HOSPITAL COURSE: The patient presented on 08/19/18 with temperature of 101.9 and rigors. She had had a scratch on her leg the prior week and developed an increasing redness as well as a sore that was nonhealing on the right leg. She has longstanding peripheral edema with chronic venous stasis changes on both lower extremities. In the ER, she had vital signs consistent with sepsis. Temperature 102 on presentation, BP 102/70, pulse rate 94, respirations 20. She had fluid resuscitation, IV antibiotics, and was initially admitted to the intensive care unit. She was stabilized on the antibiotics but did require a blood pressure support. Blood cultures were sent and grew out Strep pyogenes group A that is pansensitive. Blood cultures on 08/18/18 were positive, repeat blood cultures on 08/19/18 have remained negative. After having a blood pressure support, she was transferred to the floor. A CT scan of the lower extremity done on 08/22/18 showed diffuse inflammatory changes consistent with cellulitis but no abscess and no evidence of osteomyelitis. She had an ID consultation on 08/22/18 with recommendation for IV ceftriaxone and she had an echocardiogram without vegetations. She improved dramatically. She had pancytopenia during the admission that is attributed to pemetrexed with a platelet count nadiring at 40 but now up to 69, 000, white count is 5.5 with normal neutrophil count, and she has remained anemic with a hemoglobin of 8.6 down from baseline of 11.6 prior at admission. Today, we walked approximately 30 feet without difficulty. She feels well, eating well, normal bowel movements and pain is controlled. She would like to be discharged if possible, I think which is a reasonable plan. PHYSICAL EXAM: Temperature 98.5, BP 116/70, pulse rate 74, respirations 16, O2 sat 95%. HEENT: Mucosa moist. No lesions. No JVD. Lungs: Decreased breath sounds bilaterally, consistent with her COPD. No wheezes, no crackles. After walking, when she felt short of breath, she had good air movement and no wheezing. Heart: Regular rhythm. S1, S2. Tachycardic. Abdomen: Nontender, nondistended. Good bowel sounds. Extremities: Healing ulceration right lower extremity. She had edema bilaterally but significantly improved from admission. There is chronic venous changes in both ankles. She has markings where prior redness existed and her skin around this have retracted dramatically. Neurologic: Alert and oriented x3 and grossly nonfocal. LABORATORY DATA: Blood work today includes a white count of 5.5, hemoglobin 8.6 , MCV 101, platelets 69,000; and she has 4100 polys. INR is 1.08, creatinine is 0.56. Normal LFTs. Albumin is 2.8 and is decreased. PLAN: Plan at this time will be discharge home. Discussed the following issues : 1. Lung cancer. Chemotherapy will be on hold and we will plan PET scan. Return to clinic after the PET scan to decide about additional maintenance therapy. 2. Cellulitis. We will contact ID about outpatient antibiotics, likely be on oral antibiotics for an additional 7 to 10 days. 3. Pancytopenia. We will check B12 and iron, counts improving after chemotherapy. 4. History of DVT. Will go home on Lovenox and restarting her oral Coumadin. MEDICATIONS: 1. Restart Coumadin 4 mg p.o. daily. 2. Lovenox 60 mg subcu b.i.d. 3. Spironolactone 25 mg p.o. daily. 4. Senna 8.6 mg p.o. daily p.r.n. 5. Compazine 10 mg p.o. q.6 p.r.n. 6. Prednisone 10 mg daily for rash. 7. Ondansetron 4 mg p.o. q.4 p.r.n. 8. Morphine extended release 30 mg p.o. q.8. 9. Short-acting morphine 60 mg q.8 p.r.n. 10. Magnesium 400 mg p.o. b.i.d. (IV magnesium today). 11. Plaquenil 200 mg p.o. daily. 12. Baclofen 10 mg p.o. daily. 13. Trazodone 100 mg p.o. q.h.s. 14. Pravachol 10 mg p.o. daily. 15. Potassium 20 mEq p.o. daily. 16. Orphenadrine citrate 100 mg p.o. t.i.d. 17. Folic acid 1 G daily. 18. Famotidine 40 mg daily. 19. Cymbalta 60 mg p.o. daily. 20. Colace twice a day p.r.n. 21. Valium 5 mg t.i.d. p.r.n. 22. Abilify 5 mg at bedtime. 23. Albuterol p.r.n. 24. Clindamycin 600 mg p.o. t.i.d. 10 days. STUDIES PENDING AT THE TIME OF DISCHARGE: Iron and B12. FOLLOWUP: Followup will be 2 weeks in clinic with PET scan. [id number]/[facility] #: [id number] AMYNOR
== END 2018-08-26 13:30 | disposition home or self-care (01) | DRG 720 ==
LOC: ED 21:08 → ICU 08-19 00:24 → MED 08-21 10:11
PROVIDERS: ADMIT Internal Medicine; ATTEND Internal Medicine Hematology & Oncology
DX: A40.0 Sepsis due to streptococcus, group A (principal); R65.21 Severe sepsis with septic shock; D61.810 Antineoplastic chemotherapy induced pancytopenia; D68.51 Activated protein C resistance; C34.90 Malignant neoplasm of unspecified part of unspecified bronchus or lung; C34.91 Malignant neoplasm of unspecified part of right bronchus or lung; L03.115 Cellulitis of right lower limb; L03.116 Cellulitis of left lower limb; M32.9 Systemic lupus erythematosus, unspecified; Z99.81 Dependence on supplemental oxygen; I08.2 Rheumatic disorders of both aortic and tricuspid valves; E87.6 Hypokalemia; J44.9 Chronic obstructive pulmonary disease, unspecified; G89.29 Other chronic pain; T45.1X5A Adverse effect of antineoplastic and immunosuppressive drugs, initial encounter; I10 Essential (primary) hypertension; F41.9 Anxiety disorder, unspecified; F17.210 Nicotine dependence, cigarettes, uncomplicated; B37.9 Candidiasis, unspecified; R19.7 Diarrhea, unspecified; F32.9 Major depressive disorder, single episode, unspecified; M54.5 Low back pain; Y92.9 Unspecified place or not applicable; Z86.711 Personal history of pulmonary embolism; Z80.1 Family history of malignant neoplasm of trachea, bronchus and lung; Z80.8 Family history of malignant neoplasm of other organs or systems; Z80.3 Family history of malignant neoplasm of breast; Z79.01 Long term (current) use of anticoagulants; Z79.891 Long term (current) use of opiate analgesic; Z79.51 Long term (current) use of inhaled steroids; Z79.899 Other long term (current) drug therapy
CPT/HCPCS: 36415; 71045; 80048; 80053; 81003; 83605; 83735; 84484; 85025; 85027; 85060; 85610; 85730; 86140; 87040; 87077; 87086; 87184; 87186; 87205; 87641; 93005; 93306; 99232; 99233; 99239; 99281; 99406; A9270-GY; J0692; J0696; J1170; J1642; J1650; J1720; J2270; J2405; J3370; J3475; J3480; J3490

== ENCOUNTER 2018-09-06 14:15 | Inpatient (IN) | payer OTHER ==
[2018-09-06] MEDS ORDERED: Ondansetron TAB* 4 MG PO PRN (14:59)
[2018-09-06] MEDS ORDERED: Morphine TAB Extended Release (*) 30 MG TAB.ER PO PRN (14:59)
[2018-09-06] MEDS ORDERED: Diazepam TAB(*) 5 MG PO PRN (14:59)
[2018-09-06] MEDS ORDERED: Vancomycin(*) 1,000 MG in NS 0.9% 250 ML* 250 ML IVPB ONE (16:00)
[2018-09-06] MEDS ORDERED: Vancomycin per Pharmacy* NOTE FOLLOW UP PRN (16:03)
[2018-09-06] MEDS: Magnesium Oxide TAB* 400 MG PO SCH (17:53)
[2018-09-06] MEDS: Morphine TAB Extended Release (*) 15 MG TAB.ER PO SCH ×2 (17:53→22:36)
[2018-09-06] MEDS: NS 0.9% 1000 ML** 1,000 ML IV SCH (19:45)
[2018-09-06] MEDS: DULoxetine DR CAP* 60 MG CAP.DR PO SCH (22:40)
[2018-09-06] MEDS: Docusate CAP* 100 MG PO SCH (22:40)
[2018-09-06] MEDS: ARIPiprazole TAB* 5 MG PO SCH (22:41)
[2018-09-06] MEDS: Potassium Chlor TAB* 10 MEQ TAB.ER PO SCH (22:41)
[2018-09-06] MEDS: ORPHENADRINE CITRATE 100 MG PO SCH (22:42)
[2018-09-07] MEDS: traZODone TAB* 100 MG PO SCH ×2 (00:29→21:42)
[2018-09-07] MEDS: NS 0.9% 1000 ML** 1,000 ML IV SCH ×3 (02:37→14:19)
[2018-09-07] MEDS ORDERED: NS 0.9% 1000 ML** 1,000 ML IV ONE (03:05)
[2018-09-07] MEDS: Morphine ORAL.SOLN 10 mg* 2 MG/ML UDC 5 ml PO PRN ×2 (06:06→22:01)
[2018-09-07 06:32] LABS: ABS Eosinophils 0.1 10^3/ul (0-0.6); ABS Monocytes 0.5 10^3/ul (0-0.8); ABS Neutrophils 1.1 10^3/ul (1.5-7.7); Eosinophil % 1.9 %; Hematocrit 24 % (35-47); Hemoglobin 8.2 g/dL (12.0-16.0); Lymphocyte % 37.5 %; Mean Corpuscular HGB Conc 35 g/dL (31-36); Mean Corpuscular Hemoglobin 35 pg (27-31); Mean Corpuscular Volume 100 fL (80-97); Mean Platelet Volume 7.3 fL (7.4-10.4); Nucleated Red Blood Cells % 0.1; Platelet Count 250 10^3/uL (150-450); Red Blood Count 2.36 10^6 /uL (3.70-4.87); Red Cell Distribution Width 16 % (10-15); White Blood Count 2.8 10^3/uL (3.5-10.8)
[2018-09-07 06:37] LABS: INR 3.16 (0.82-1.09)
[2018-09-07 06:48] LABS: Albumin/Globulin Ratio 1.2 (1-3); BUN/Creatinine Ratio 8.5 (8-20); Calcium 7.9 mg/dL (8.6-10.3); EGFR African American 85.5 (>60); EGFR Non-African American 70.6 (>60); Globulin 2.5 g/dL (2-4); Potassium 3.7 mmol/L (3.5-5.0); Total Bilirubin 0.3 mg/dL (0.2-1.0); Total Protein 5.5 g/dL (6.4-8.9)
[2018-09-07] MEDS: Morphine TAB Extended Release (*) 15 MG TAB.ER PO SCH ×2 (09:16→16:21)
[2018-09-07] MEDS: Potassium Chlor TAB* 10 MEQ TAB.ER PO SCH ×3 (09:17→21:42)
[2018-09-07] MEDS: Docusate CAP* 100 MG PO SCH ×2 (09:17→21:42)
[2018-09-07] MEDS: Magnesium Oxide TAB* 400 MG PO SCH ×2 (09:18→18:19)
[2018-09-07] MEDS: Folic Acid TAB* 1 MG PO SCH (09:18)
[2018-09-07] MEDS: Famotidine TAB* 20 MG PO SCH (09:18)
[2018-09-07] MEDS: ORPHENADRINE CITRATE 100 MG PO SCH ×3 (10:00→22:02)
--- NOTE | 2018-09-07 10:21 | PN ---
Progress Note - Progress Note Date of Service: 09/07/18 SOAP: Subjective: []Feeling OK, but very tired still and sore. Has chronic back pain but right leg is very sore. "Do I have strep in my blood again?" Medications: Aripiprazole (Abilify Tab*) 5 mg PO BEDTIME [facility] Last Admin: 09/06/18 22:41 Dose: 5 mg Diazepam (Valium Tab(*)) 5 mg PO TID PRN PRN Reason: ANXIETY Docusate Sodium (Colace Cap*) 100 mg PO BID [facility] Last Admin: 09/07/18 09:17 Dose: 100 mg Duloxetine HCl (Cymbalta Cap*) 60 mg PO QPM [facility] Last Admin: 09/06/18 22:40 Dose: 60 mg Famotidine (Pepcid Tab*) 40 mg PO DAILY [facility] Last Admin: 09/07/18 09:18 Dose: 40 mg Folic Acid (Folvite Tab*) 1 mg PO DAILY [facility] Last Admin: 09/07/18 09:18 Dose: 1 mg Sodium Chloride (Ns 0.9% 1000 Ml) 1,000 mls @ 100 mls/hr IV PER RATE [facility] Last Admin: 09/07/18 04:10 Dose: 100 mls/hr Vancomycin HCl 750 mg/ Sodium (Chloride) 250 mls @ 166.667 mls/hr IVPB Q24H [facility] Magnesium Oxide (Magox 400 Tab*) 400 mg PO BID WITH MEALS [facility] Last Admin: 09/07/18 09:18 Dose: 400 mg Morphine Sulfate (Ms Contin(*)) 60 mg PO Q8H PRN PRN Reason: PAIN Last Admin: 09/07/18 09:36 Dose: 60 mg Morphine Sulfate (Morphine Oral.Soln 10 Mg*) 15 mg PO Q4H PRN PRN Reason: PAIN Last Admin: 09/07/18 06:06 Dose: 15 mg Morphine Sulfate (Ms Contin(*)) 30 mg PO Q8H [facility] Last Admin: 09/07/18 09:16 Dose: 30 mg Nft: Orphenadrine Citrate [ Orphenadrine Citrate ] 100 Mg 100 mg PO TID [facility] Last Admin: 09/07/18 10:00 Dose: Not Given Ondansetron HCl (Zofran Tab*) 4 mg PO Q4HR PRN PRN Reason: NAUSEA Pharmacy Consult (Vancomycin Per Pharmacy*) 1 note FOLLOW UP . PRN PRN Reason: PER PROTOCOL Pharmacy Profile Note (Coumadin Per Pharmacy*) 1 note FOLLOW UP .PER PHARMACY PROTOC [facility]; Protocol Pharmacy Profile Note (Vancomycin Trough Check) 1 note FOLLOW UP 1530 ONE Stop: 09/09/18 15:31 Potassium Chloride (Klor Con Er Tab*) 10 meq PO TID [facility] Last Admin: 09/07/18 09:17 Dose: 10 meq Trazodone HCl (Desyrel Tab*) 100 mg PO BEDTIME [facility] Last Admin: 09/07/18 00:29 Dose: 100 mg Warfarin Sodium (Coumadin Tab(*)) 2 mg PO 1700 ONE Stop: 09/07/18 17:01 Objective: [] Vital Signs Temp Pulse Resp BP Pulse Ox 98.3 F 66 20 82/50 96 09/07/18 07:15 09/07/18 07:15 09/07/18 09:36 09/07/18 07:15 09/07/18 07:15 A&Ox3, EOMI, neuro grossly non-focal Does not appear as lethargic as note from yesterday indicates HRR, ROSANNA murmur II/ LS clear Marked erythema to right leg up to knee, extent marked +2 firm edema RLE +PP= bilat. Laboratory Results - last 24 hr 09/07/18 09/07/18 09/07/18 06:00 06:00 06:00 WBC 2.8 L RBC 2.36 L Hgb 8.2 L Hct 24 L MCV 100 H MCH 35 H MCHC 35 RDW 16 H Plt Count 250 MPV 7.3 L Neut % (Auto) 40.0 Lymph % (Auto) 37.5 [place] % (Auto) 19.5 Eos % (Auto) 1.9 Baso % (Auto) 1.1 Absolute Neuts (auto) 1.1 L Absolute Lymphs (auto) 1.0 Absolute Monos (auto) 0.5 Absolute Eos (auto) 0.1 Absolute Basos (auto) 0.0 Absolute Nucleated RBC 0.0 Nucleated RBC % 0.1 INR (Anticoag Therapy) 3.16 H Sodium 139 Potassium 3.7 Chloride 103 Carbon Dioxide 31 Anion Gap 5 BUN 7 Creatinine 0.82 Est GFR ( Amer) 85.5 Est GFR (Non-Af Amer) 70.6 BUN/Creatinine Ratio 8.5 Glucose 87 Calcium 7.9 L Total Bilirubin 0.30 AST 34 ALT 14 Alkaline Phosphatase 80 Total Protein 5.5 L Albumin 3.0 L Globulin 2.5 Albumin/Globulin Ratio 1.2 Blood cultures drawn in office 09/06/18 pending Assessment: []63 yo female with metastatic NSCLC on maintenance Pemetrexed, last received , with recurrent cellulitis to the right leg. Plan: []1. Cellulitis r/t PVD: cont. Vanco - check SYLVESTER as TTE neg. on prior admission, has a murmur and concern regarding recurrent infectious process - can not get MRI for osteo, but CT appeared neg. on last admission - repeat blood cultures today via port and peripheral, if port + will need to remove - consult ID 2. Pain: chronic with acute to leg - she will attempt to have someone bring in her home meds but for now can increase frequency of PRN morphine to q3hrs 3. Leukopenia: likely 2/2 infection - follow daily labs 4. Cancer: therapy on hold Dispo: inpt. for IV abx. and work-up
[2018-09-07] MEDS: Vancomycin(*) 750 MG in NS 0.9% 250 ML* 250 ML IVPB SCH (14:19)
[2018-09-07] MEDS ORDERED: Warfarin TAB(*) 2 MG PO ONE (17:00)
[2018-09-07] MEDS: DULoxetine DR CAP* 60 MG CAP.DR PO SCH (18:19)
[2018-09-08] MEDS: Morphine TAB Extended Release (*) 15 MG TAB.ER PO SCH ×4 (01:13→23:23)
[2018-09-08] MEDS: ARIPiprazole TAB* 5 MG PO SCH ×2 (01:13→23:25)
[2018-09-08] MEDS: Vancomycin(*) 750 MG in NS 0.9% 250 ML* 250 ML IVPB SCH (02:30)
[2018-09-08 09:18] LABS: INR 1.82 (0.82-1.09)
[2018-09-08] MEDS: Magnesium Oxide TAB* 400 MG PO SCH ×2 (09:27→18:20)
[2018-09-08] MEDS: ORPHENADRINE CITRATE 100 MG PO SCH ×3 (09:28→20:30)
[2018-09-08] MEDS: Potassium Chlor TAB* 10 MEQ TAB.ER PO SCH ×3 (09:28→23:25)
[2018-09-08] MEDS: Folic Acid TAB* 1 MG PO SCH (09:28)
[2018-09-08] MEDS: Docusate CAP* 100 MG PO SCH ×2 (09:28→23:25)
[2018-09-08] MEDS: Famotidine TAB* 20 MG PO SCH (09:28)
--- NOTE | 2018-09-08 10:24 | PN ---
Progress Note - Progress Note Date of Service: 09/08/18 SOAP: Subjective: []She is doing ok, feels better since admission. Family reports she has had cognitive difficulty over the past week and that continues when talking to her now. Some pain in leg but better. No fever or chills. Breathing has been fine. Aripiprazole (Abilify Tab*) 5 mg PO BEDTIME [facility] Last Admin: 09/08/18 01:13 Dose: 5 mg Clindamycin HCl (Cleocin Cap*) 300 mg PO TID [facility] Diazepam (Valium Tab(*)) 5 mg PO TID PRN PRN Reason: ANXIETY Docusate Sodium (Colace Cap*) 100 mg PO BID [facility] Last Admin: 09/08/18 09:28 Dose: 100 mg Duloxetine HCl (Cymbalta Cap*) 60 mg PO QPM [facility] Last Admin: 09/07/18 18:19 Dose: 60 mg Famotidine (Pepcid Tab*) 40 mg PO DAILY [facility] Last Admin: 09/08/18 09:28 Dose: 40 mg Folic Acid (Folvite Tab*) 1 mg PO DAILY [facility] Last Admin: 09/08/18 09:28 Dose: 1 mg Sodium Chloride (Ns 0.9% 1000 Ml) 1,000 mls @ 100 mls/hr IV PER RATE [facility] Last Admin: 09/07/18 14:19 Dose: 100 mls/hr Magnesium Oxide (Magox 400 Tab*) 400 mg PO BID WITH MEALS [facility] Last Admin: 09/08/18 09:27 Dose: 400 mg Morphine Sulfate (Ms Contin(*)) 60 mg PO Q8H PRN PRN Reason: PAIN Last Admin: 09/07/18 09:36 Dose: 60 mg Morphine Sulfate (Morphine Oral.Soln 10 Mg*) 15 mg PO Q4H PRN PRN Reason: PAIN Last Admin: 09/07/18 22:01 Dose: 15 mg Morphine Sulfate (Ms Contin(*)) 30 mg PO Q8H [facility] Last Admin: 09/08/18 09:27 Dose: 30 mg Nft: Orphenadrine Citrate [ Orphenadrine Citrate ] 100 Mg 100 mg PO TID [facility] Last Admin: 09/08/18 09:28 Dose: Not Given Ondansetron HCl (Zofran Tab*) 4 mg PO Q4HR PRN PRN Reason: NAUSEA Pharmacy Profile Note (Coumadin Per Pharmacy*) 1 note FOLLOW UP .PER PHARMACY PROTOC [facility]; Protocol Potassium Chloride (Klor Con Er Tab*) 10 meq PO TID [facility] Last Admin: 09/08/18 09:28 Dose: 10 meq Trazodone HCl (Desyrel Tab*) 100 mg PO BEDTIME [facility] Last Admin: 09/07/18 21:42 Dose: 100 mg Objective: [] Vital Signs Temp Pulse Resp BP Pulse Ox 98.5 F 68 14 87/48 93 09/08/18 07:38 09/08/18 07:38 09/08/18 09:27 09/08/18 07:38 09/08/18 07:38 HEENT: pale, otherwise negative CTA RRR S1S2, ROSANNA +BS NT ND edema R leg, poor circulation, improved from last admission skin: slight rash chest, tender. Blood cultures drawn in office 09/06/18 negative 'Hgb 8.2 Assessment: []63 yo female with metastatic NSCLC on maintenance Pemetrexed, last received . Recently discharged after admission for cellulitis and now re-admission with MS changes, question of persistent infection. Plan: []1. Cellulitis - ID input appreciated, will go to po antibiotics. - Hold on Echo 2. Pain: chronic with acute to leg - not change in pain medication given mental status changes. 3. MS change. - Repeat CAFETERIA OR LUNCHROOM CHECKER imaging. Has not had MRI but will need office chart to see if clear contraindication - multiple medications that can compromise cognition. 3. Leukopenia: likely 2/2 infection - follow daily labs 4. Anemia. Symptomatic, Tx 1 U PRBC 5. Cancer: therapy on hold indefinitely. 6. Discharge tomorrow if feeling better.
--- NOTE | 2018-09-08 11:00 | CONS ---
CONSULTATION REPORT: DATE OF CONSULT: 09/08/18 REQUESTING PROVIDER: Randa Leo NP. CONSULTING SERVICE: Infectious Disease. REASON FOR CONSULT: Malaise, ongoing right leg cellulitis. IMPRESSION: 1. Right leg cellulitis. Overall improving, still some warmth and tenderness, which is expected at this phase for a streptococcal cellulitis. There is no wound or other lesion to suggest underlying osteomyelitis or abscess. 2. Stage IV lung cancer with a PowerPort. 3. History of pulmonary embolism. Factor V Leiden positive. 4. Chronic obstructive pulmonary disease. 5. Aortic insufficiency. 6. Peripheral vascular disease. 7. Lupus. RECOMMENDATION: Change her antibiotics to clindamycin 50 mg by mouth 3 times a day as her blood cultures now are negative at 24 hours. HISTORY OF PRESENT ILLNESS: This is a 63-year-old woman with lung cancer, recent chemotherapy, and a recent admission with right leg cellulitis. She has been treated with IV antibiotics here and transitioned to oral clindamycin and then a couple of days later was seen in the oncology office where she was noted to be pretty sleepy, could not keep her eyes open. Had no sign of fever, chills , or sweats or worsening pain. Had been up a little bit on her legs some more, felt maybe there is some more swelling. She was admitted to the hospital yesterday, started on vancomycin. Blood cultures taken as outpatient are negative at 24 hours. She has not had fever here. She has had leukopenia and anemia. She had a chest x-ray when she came to the hospital, showed no acute process. She had a transthoracic echocardiogram at the end of July that showed ejection fraction 55% to 60%, moderate aortic regurgitation, moderate tricuspid regurgitation, increased pulmonary pressures. She has got no cough and has a baseline shortness of breath. PAST MEDICAL HISTORY: 1. Stage IV lung cancer, on chemotherapy, has a port. 2. Lupus. 3. History of pulmonary embolism. 4. Factor V Leiden positive. 5. COPD, on chronic supplemental oxygen. 6. Hypertension. 7. Aortic regurgitation. 8. Peripheral vascular disease. 9. Low back pain. 10. Anxiety. 11. Depression. 12. GI bleed. 13. Status post appendectomy. 14. Status post hysterectomy. 15. Status post L4-L5 diskectomy and laminectomy and a dorsal column stimulator. 16. Status post tonsillectomy. MEDICATIONS: 1. Aripiprazole. 2. Diazepam as needed. 3. Docusate. 4. Duloxetine. 5. Famotidine. 6. Folic acid. 7. Magnesium oxide. 8. Morphine as needed. 9. Zofran. 10. Trazodone. 11. Potassium. 12. Vancomycin 750 mg IV every 12 hours. ALLERGIES: ASPIRIN, CODEINE, and TAPE. FAMILY HISTORY: Sister with lung cancer, mother with breast cancer. SOCIAL HISTORY: She lives in [place] and has a cat. She had no travel. REVIEW OF SYSTEMS: All negative except as noted above to a 12-point review. PHYSICAL EXAM: Vital Signs: Temperature is 37, heart rate 70, respiratory rate 14, blood pressure 90/50, oxygen saturation 93% on room air. General: She is awake, not in distress. Neurologic: She is oriented x3, follows commands. HEENT: There is no conjunctival hemorrhage. Oropharynx without lesions. Neck: Neck is supple without mass. Heart is regular rate and rhythm without murmurs, rubs, or gallops. Lungs are clear to auscultation bilaterally. Abdomen is soft, nontender, nondistended. Bowel sounds present. Skin: There is no rash or splinter hemorrhage. Musculoskeletal: There is no spine tenderness to palpation or joint synovitis. Right lower extremity, below the knee, there is diffuse darkened erythema with some superficial skin peeling , some mild warmth, diffuse edema, and tenderness without fluctuance or crepitus. There is no ankle or knee effusion. LABORATORY DATA: White blood cell count 2.8, hemoglobin 8, MCV 100, platelets 250, creatinine 0.8. Please see impressions and recommendations outlined above. Thanks for asking me to see Ms. Aguiar in consultation. [id number]/[facility] #: [id number] MAYNOR
[2018-09-08] MEDS ORDERED: Vancomycin Trough Check NOTE FOLLOW UP ONE (13:30)
[2018-09-08] MEDS: Clindamycin CAP* 150 MG PO SCH ×2 (14:33→23:22)
[2018-09-08] MEDS: Morphine ORAL.SOLN 10 mg* 2 MG/ML UDC 5 ml PO PRN (14:41)
[2018-09-08 15:41] LABS: Total Iron Binding Capacity 210 mcg/dL (250-450); Transferrin 150 mg/dL (203-362)
[2018-09-08 15:43] LABS: % Iron Saturation 10 % (15-55); Iron < 20 ug/dL (50-212)
[2018-09-08 15:53] LABS: Ferritin 232.9 ng/mL (11-307)
[2018-09-08] MEDS ORDERED: Warfarin TAB(*) 3 MG PO ONE (17:00)
[2018-09-08] MEDS: DULoxetine DR CAP* 60 MG CAP.DR PO SCH (18:20)
[2018-09-08] MEDS: NS 0.9% 1000 ML** 1,000 ML IV SCH (18:36)
[2018-09-08] MEDS: traZODone TAB* 100 MG PO SCH (23:23)
[2018-09-09 07:43] LABS: ABS Eosinophils 0.1 10^3/ul (0-0.6); ABS Monocytes 0.5 10^3/ul (0-0.8); Eosinophil % 3.1 %; Hematocrit 27 % (35-47); Hemoglobin 9.1 g/dL (12.0-16.0); Lymphocyte % 38.2 %; Mean Corpuscular HGB Conc 34 g/dL (31-36); Mean Corpuscular Hemoglobin 33 pg (27-31); Mean Corpuscular Volume 99 fL (80-97); Mean Platelet Volume 7.4 fL (7.4-10.4); Nucleated Red Blood Cells % 0.1; Platelet Count 216 10^3/uL (150-450); Red Blood Count 2.73 10^6 /uL (3.70-4.87); Red Cell Distribution Width 19 % (10-15); White Blood Count 2.6 10^3/uL (3.5-10.8)
[2018-09-09 07:52] LABS: INR 1.67 (0.82-1.09)
[2018-09-09 08:04] LABS: Albumin 2.5 g/dL (3.2-5.2); Albumin/Globulin Ratio 1.1 (1-3); BUN/Creatinine Ratio 5.8 (8-20); Calcium 7.7 mg/dL (8.6-10.3); EGFR African American 104.3 (>60); EGFR Non-African American 86.2 (>60); Globulin 2.3 g/dL (2-4); Potassium 3.8 mmol/L (3.5-5.0); Total Bilirubin 0.2 mg/dL (0.2-1.0); Total Protein 4.8 g/dL (6.4-8.9)
[2018-09-09 08:21] VITALS: BP 106/61
[2018-09-09] MEDS: Folic Acid TAB* 1 MG PO SCH (08:26)
[2018-09-09] MEDS: Morphine TAB Extended Release (*) 15 MG TAB.ER PO SCH (08:26)
[2018-09-09] MEDS: Docusate CAP* 100 MG PO SCH (08:26)
[2018-09-09] MEDS: Potassium Chlor TAB* 10 MEQ TAB.ER PO SCH (08:26)
[2018-09-09] MEDS: Famotidine TAB* 20 MG PO SCH (08:26)
[2018-09-09] MEDS: Clindamycin CAP* 150 MG PO SCH (08:26)
[2018-09-09] MEDS: Magnesium Oxide TAB* 400 MG PO SCH (08:27)
[2018-09-09] MEDS: ORPHENADRINE CITRATE 100 MG PO SCH (08:27)
[2018-09-09] MEDS ORDERED: Iohexol 300* (CONTRAST) 10 ML SDV IV ONE (08:45)
--- NOTE | 2018-09-09 11:20 | DS ---
DISCHARGE SUMMARY: DATE OF ADMISSION: 09/06/18 DATE OF DISCHARGE: 09/09/18 DISCHARGE DIAGNOSES: 1. Cellulitis, lower extremity. 2. Failure to thrive. 3. Metastatic [id number]-puay lung cancer, on chemotherapy. HOSPITAL COURSE: She presented to clinic with increasing lethargy, weakness approximately 1 week after discharge for strep cellulitis of the lower extremities. She had low-grade fever in clinic, normal temperature after admission. Placed on IV antibiotics and started to feel a little bit better. She was seen in consultation by Dr. Faustin and it was determined that cellulitis was responding, was able to transition back to oral antibiotics. Very tired during the admission. She received 1 unit of packed red blood cells which did help. She continued to have pain in the legs, but was stable and at her baseline. Patient and family complained of increasing lethargy and some mental status changes. CT of the brain was done today which does not show any cancer. Improving today with her appetite, is willing to try going home again. MEDICATIONS ON DISCHARGE: 1. Abilify 5 mg p.o. q.h.s. 2. Valium 5 mg p.o. t.i.d. 3. Colace 100 b.i.d. 4. Pepcid 40 mg daily. 5. Folic acid 1 g daily. 6. Magnesium 400 mg b.i.d. 7. Morphine sulfate 60 mg q.8. 8. Morphine 50 mg q.4. p.r.n. 9. Zofran 4 mg q.4 p.r.n. 10. Orphenadrine 100 mg p.o. t.i.d. 11. Potassium chloride 10 mEq t.i.d. 12. Cymbalta 60 mg daily. 13. Lovenox 60 subcu q.12. 14. Plaquenil 200 mg daily. 15. Pravachol 10 mg daily. 16. Compazine 10 mg q.6 p.r.n. 17. Senna 8.6 p.o. daily. 18. Aldactone 25 mg p.o. b.i.d. 19. Trazodone 100 mg at bedtime. 20. Coumadin 4 mg p.o. daily. 21. She will also be discharged on clindamycin 300 mg p.o. t.i.d. for additional 10 days. Chemotherapy will be on hold indefinitely. We will reevaluate peripheral vascular disease, any potential interventions to assist with leg pain. We will plan followup in our clinic within 1 week. She is to call our office if any additional symptoms after discharge including recurrent fevers or chills , increased pain, progressive lethargy. [id number]/[facility] #: [id number] MTDD
[2018-09-09] MEDS ORDERED: Warfarin TAB(*) 4 MG PO ONE (17:00)
== END 2018-09-09 14:05 | disposition home or self-care (01) | DRG 383 ==
LOC: OBSVTOIN 15:09 → MED 15:09
PROVIDERS: ADMIT Internal Medicine Hematology & Oncology; ATTEND Internal Medicine Hematology & Oncology
PROC: 30233N1 Transfusion of Nonautologous Red Blood Cells into Peripheral Vein, Percutaneous Approach (ICD-10-PCS; principal; 2018-09-08)
DX: L03.115 Cellulitis of right lower limb (principal); C34.12 Malignant neoplasm of upper lobe, left bronchus or lung; C79.9 Secondary malignant neoplasm of unspecified site; Z68.1 Body mass index [BMI] 19.9 or less, adult; J44.9 Chronic obstructive pulmonary disease, unspecified; F41.9 Anxiety disorder, unspecified; G89.4 Chronic pain syndrome; F32.9 Major depressive disorder, single episode, unspecified; W17.89XA Other fall from one level to another, initial encounter; E78.5 Hyperlipidemia, unspecified; G47.30 Sleep apnea, unspecified; M32.9 Systemic lupus erythematosus, unspecified; F17.210 Nicotine dependence, cigarettes, uncomplicated; I73.9 Peripheral vascular disease, unspecified; I08.2 Rheumatic disorders of both aortic and tricuspid valves; D64.9 Anemia, unspecified; D72.819 Decreased white blood cell count, unspecified; I10 Essential (primary) hypertension; R62.7 Adult failure to thrive; Z80.3 Family history of malignant neoplasm of breast; Z88.8 Allergy status to other drugs, medicaments and biological substances; Z88.6 Allergy status to analgesic agent; Z80.1 Family history of malignant neoplasm of trachea, bronchus and lung; Z86.711 Personal history of pulmonary embolism; Z90.710 Acquired absence of both cervix and uterus; Z80.8 Family history of malignant neoplasm of other organs or systems; Z80.6 Family history of leukemia; Z80.7 Family history of other malignant neoplasms of lymphoid, hematopoietic and related tissues; Y92.009 Unspecified place in unspecified non-institutional (private) residence as the place of occurrence of the external cause; Z72.89 Other problems related to lifestyle; Z79.01 Long term (current) use of anticoagulants
CPT/HCPCS: 36415; 70450; 70470; 71046; 80053; 82607; 82728; 83540; 83550; 83605; 85025; 85610; 86850; 86900; 86901; 86922; 87040; 99222; 99232; 99233; 99239; A9270-GY; J1642; J3370; P9040; Q9967